=== PATIENT | female | born 1950 | race Caucasian/White ===

== ENCOUNTER 2019-06-26 11:00 | Outpatient (RCR) | payer SELFPAY | END 2019-07-26 00:01 | LOC: CR 11:00 | PROVIDERS: Family Provider Internal Medicine; Visit Provider Internal Medicine Cardiovascular Disease | DX: Z98.61 Coronary angioplasty status (principal) ==

== ENCOUNTER 2019-08-03 11:03 | Outpatient (RCR) | payer SELFPAY | END 2019-08-26 23:59 | disposition home or self-care (01) | LOC: CR 11:03 | PROVIDERS: Family Provider Internal Medicine; PCP Internal Medicine; Referring Provider Internal Medicine Cardiovascular Disease; Visit Provider Internal Medicine Cardiovascular Disease | DX: I25.10 Atherosclerotic heart disease of native coronary artery without angina pectoris (principal); Z95.5 Presence of coronary angioplasty implant and graft ==

== ENCOUNTER → 2019-08-16 09:20 | Outpatient (BNVA) | payer MEDICARE, SELFPAY | PROVIDERS: Family Provider Internal Medicine; PCP Internal Medicine; Visit Provider Psychiatry & Neurology Neurology | DX: G56.01 Carpal tunnel syndrome, right upper limb (principal); M67.441 Ganglion, right hand | CPT/HCPCS: 95885; 95909 ==

== ENCOUNTER 2019-08-29 12:55 | Outpatient (RCR) | payer SELFPAY | END 2019-09-24 23:59 | disposition home or self-care (01) | LOC: CR 12:55 | PROVIDERS: Family Provider Internal Medicine; PCP Internal Medicine; Referring Provider Internal Medicine Cardiovascular Disease; Visit Provider Internal Medicine Cardiovascular Disease | DX: I25.10 Atherosclerotic heart disease of native coronary artery without angina pectoris (principal); Z95.5 Presence of coronary angioplasty implant and graft ==

== ENCOUNTER 2019-09-02 08:11 | Outpatient (REF) | payer SELFPAY ==
[2019-09-02 11:09] LABS: Estmated Average Glucose 128; Hemoglobin A1C 6.1 % (4.0-6.0)
[2019-09-02 13:43] LABS: Chol HDL Ratio 2.44 mg/dL (0.0-4.40); Cholesterol 154 mg/dL (0-200); Glucose 93 mg/dL (65-115); HDL Cholesterol 63 mg/dL (60-100); LDL Cholesterol Calculated 74 mg/dL (50-129); LDL HDL Ratio 1.17 RATIO (0.00-3.22); Triglycerides 84 mg/dL (0-150)
== END 2019-09-02 08:12 | disposition home or self-care (01) ==
LOC: LAB 08:11
PROVIDERS: Family Provider Internal Medicine; PCP Internal Medicine; Visit Provider Dermatology
DX: Z01.89 Encounter for other specified special examinations (principal)
CPT/HCPCS: 80061; 82947; 83036

== ENCOUNTER 2019-09-26 11:55 | Outpatient (RCR) | payer SELFPAY | END 2019-10-25 23:59 | disposition home or self-care (01) | LOC: CR 11:55 | PROVIDERS: Family Provider Internal Medicine; PCP Internal Medicine; Referring Provider Internal Medicine Cardiovascular Disease; Visit Provider Internal Medicine Cardiovascular Disease | DX: Z95.5 Presence of coronary angioplasty implant and graft (principal) ==

== ENCOUNTER 2019-12-26 13:47 | Outpatient (RCR) | payer SELFPAY | END 2020-01-24 23:59 | disposition home or self-care (01) | LOC: CR 13:47 | PROVIDERS: Family Provider Internal Medicine; PCP Internal Medicine; Referring Provider Internal Medicine Cardiovascular Disease; Visit Provider Internal Medicine Cardiovascular Disease | DX: Z95.5 Presence of coronary angioplasty implant and graft (principal) ==

== ENCOUNTER 2020-01-25 | Outpatient (RCR) | payer SELFPAY | END 2020-02-20 23:00 | disposition home or self-care (01) | LOC: CR | PROVIDERS: PCP Internal Medicine; Referring Provider Internal Medicine Cardiovascular Disease; Visit Provider Internal Medicine Cardiovascular Disease | DX: I25.10 Atherosclerotic heart disease of native coronary artery without angina pectoris (principal); Z95.5 Presence of coronary angioplasty implant and graft ==

== ENCOUNTER 2020-02-23 13:22 | Outpatient (CLI) | payer BC, SELFPAY ==
--- NOTE | 2020-02-23 13:28 | MM_ITS ---
WS: [id number] BILATERAL DIGITAL SCREENING MAMMOGRAPHY WITH CAD CLINICAL INFORMATION: SCREENING HISTORY: Screening mammogram. No current complaints. COMPARISON: TECHNIQUE: Bilateral CC and MLO views. FINDINGS: Scattered fibroglandular densities bilaterally. No suspicious focal mass, asymmetry, calcifications, or architectural distortion. No evidence of malignancy. MM/[place] [id number] IMPRESSION: BI-RADS: 1-Negative FOLLOW UP: 1 Year Follow-up Recommend return to annual screening mammography.
== END 2020-02-23 13:23 | disposition home or self-care (01) ==
LOC: RADSHAW 13:27
PROVIDERS: PCP Internal Medicine; Visit Provider Internal Medicine
DX: Z12.31 Encounter for screening mammogram for malignant neoplasm of breast (principal)
CPT/HCPCS: 77067

== ENCOUNTER 2020-02-28 11:32 | Outpatient (RCR) | payer SELFPAY | END 2020-03-26 23:59 | disposition home or self-care (01) | LOC: CR 11:32 | PROVIDERS: PCP Internal Medicine; Referring Provider Internal Medicine Cardiovascular Disease; Visit Provider Internal Medicine | DX: I25.10 Atherosclerotic heart disease of native coronary artery without angina pectoris (principal); Z95.5 Presence of coronary angioplasty implant and graft ==

== ENCOUNTER → 2020-04-12 08:34 | Outpatient (BNVA) | payer MEDICARE, SELFPAY | PROVIDERS: PCP Internal Medicine; Visit Provider Internal Medicine Cardiovascular Disease | DX: E78.2 Mixed hyperlipidemia (principal) | CPT/HCPCS: 80061 ==

== ENCOUNTER 2020-04-27 09:39 | Outpatient (RCR) | payer SELFPAY | END 2020-05-26 23:59 | disposition home or self-care (01) | LOC: CR 09:39 | PROVIDERS: PCP Internal Medicine; Referring Provider Internal Medicine Cardiovascular Disease; Visit Provider Internal Medicine | DX: Z95.5 Presence of coronary angioplasty implant and graft (principal) ==

== ENCOUNTER 2020-05-28 10:36 | Outpatient (RCR) | payer SELFPAY | END 2020-06-25 23:59 | disposition home or self-care (01) | LOC: CR 10:36 | PROVIDERS: PCP Internal Medicine; Referring Provider Internal Medicine Cardiovascular Disease; Visit Provider Internal Medicine | DX: Z95.5 Presence of coronary angioplasty implant and graft (principal) ==

== ENCOUNTER 2020-06-26 11:08 | Outpatient (RCR) | payer SELFPAY | END 2020-07-26 23:59 | disposition home or self-care (01) | LOC: CR 11:08 | PROVIDERS: PCP Internal Medicine; Referring Provider Internal Medicine Cardiovascular Disease; Visit Provider Internal Medicine | DX: Z95.5 Presence of coronary angioplasty implant and graft (principal) ==

== ENCOUNTER 2020-07-27 14:11 | Outpatient (RCR) | payer MEDICARE, SELFPAY | END 2020-08-26 23:59 | disposition home or self-care (01) | LOC: CR 14:11 | PROVIDERS: PCP Internal Medicine; Referring Provider Internal Medicine Cardiovascular Disease; Visit Provider Internal Medicine | DX: Z95.5 Presence of coronary angioplasty implant and graft (principal) ==

== ENCOUNTER 2020-08-28 11:36 | Outpatient (RCR) | payer SELFPAY | END 2020-09-23 23:59 | disposition home or self-care (01) | LOC: CR 11:36 | PROVIDERS: PCP Internal Medicine; Referring Provider Internal Medicine Cardiovascular Disease; Visit Provider Internal Medicine | DX: Z95.5 Presence of coronary angioplasty implant and graft (principal) ==

== ENCOUNTER 2020-09-24 12:59 | Outpatient (RCR) | payer SELFPAY | END 2020-10-24 23:59 | disposition home or self-care (01) | LOC: CR 12:59 | PROVIDERS: PCP Internal Medicine; Referring Provider Internal Medicine Cardiovascular Disease; Visit Provider Internal Medicine | DX: Z95.5 Presence of coronary angioplasty implant and graft (principal) ==

== ENCOUNTER 2020-10-25 10:14 | Outpatient (RCR) | payer SELFPAY | END 2020-11-23 23:59 | disposition home or self-care (01) | LOC: CR 10:14 | PROVIDERS: PCP Internal Medicine; Referring Provider Internal Medicine Cardiovascular Disease; Visit Provider Internal Medicine | DX: Z95.5 Presence of coronary angioplasty implant and graft (principal) ==

== ENCOUNTER 2020-11-22 15:17 | Emergency (ER) | payer MEDICARE, SELFPAY ==
[2020-11-22 15:30] VITALS: BP 152/89; PULSE 69; RESP 18; TEMP 36.8; O2SAT 97; BMI 33.0
--- NOTE | 2020-11-22 15:56 | CTR_ITS ---
PROCEDURE INFORMATION: Exam: CT Cervical Spine Without Contrast Exam date and time: 11/22/2020 4:27 PM Age: 70 years old Clinical indication: Pain and injury or trauma; Blunt trauma; Injury date: 11/22/20; Injury details: Fall off ladder, no loc; Patient HX: Headache, neck pain, on plavix; Additional info: Fall neck pain TECHNIQUE: Imaging protocol: Computed tomography images of the cervical spine without contrast. Total images: 306 Radiation optimization: All CT scans at this facility use at least one of these dose optimization techniques: automated exposure control; mA and/or kV adjustment per patient size (includes targeted exams where dose is matched to clinical indication); or iterative reconstruction. COMPARISON: No relevant prior studies available. RADIATION DOSE METRICS: Total DLP (mGy-cm): 622.77 FINDINGS: Bones/joints: No acute fracture. Mild straightening of the normal cervical lordosis which may be positional in nature. Degenerative disease with moderate spondylosis deformans C4, C5, and C6. Minimal facet arthrosis. Discs/Spinal canal/Neural foramina: Advanced degenerative disc disease with disc space height loss C5/C6. No significant disc protrusion. No severe spinal canal stenosis. No significant neural foraminal narrowing. Lungs: Lung apices are normal. Soft tissues: Unremarkable. CT/CT cervical spin wo con* [id number] IMPRESSION: No acute findings. Radiation Dose CTDIVOL = (mGy): DLP = 622.77 (mGy-cm)
--- NOTE | 2020-11-22 15:56 | CTR_ITS ---
PROCEDURE INFORMATION: Exam: CT Head Without Contrast Exam date and time: 11/22/2020 4:27 PM Age: 70 years old Clinical indication: Pain and injury or trauma; Blunt trauma (contusions or hematomas); Without loss of consciousness; Post-traumatic; Injury date: 11/22/20; Injury details: Fall off ladder, no loc; Patient HX: Headache neck pain fall; Additional info: Fall, DIMAS, plavix TECHNIQUE: Imaging protocol: Computed tomography of the head without contrast. Total images: 193 Radiation optimization: All CT scans at this facility use at least one of these dose optimization techniques: automated exposure control; mA and/or kV adjustment per patient size (includes targeted exams where dose is matched to clinical indication); or iterative reconstruction. COMPARISON: No relevant prior studies available. RADIATION DOSE METRICS: Total DLP (mGy-cm): 817.96 FINDINGS: Brain: No evidence of active or acute intracranial pathologic process, hemorrhage, or trauma. No visible evidence of diffuse cerebral edema or generalized demyelination. No mass effect. No midline shift. Cerebral ventricles: No ventriculomegaly. Bones/joints: Unremarkable. No acute fracture. Paranasal sinuses: Visualized sinuses are unremarkable. No fluid levels. Mastoid air cells: Visualized mastoid air cells are well aerated. Soft tissues: Unremarkable. CT/CT head wo con* [id number] IMPRESSION: No evidence of active or acute intracranial pathologic process, hemorrhage, or trauma. Radiation Dose CTDIVOL = (mGy): DLP = 817.96 (mGy-cm)
--- NOTE | 2020-11-22 16:03 | W.ED.FALL ---
HPI - Fall General: Chief Complaint: Fall Stated Complaint: FALL, INJURY TO HEAD Time Seen by Provider: 11/22/20 16:03 History of Present Illness: HPI Narrative: Patient is a 70-year-old female comes to the ED after having a fall. Patient says she was on a stepladder and fell backwards. Patient says she hit the back of her head on concrete when she fell. Denies any loss of consciousness. Patient says she just has a sore spot on the back of her head and his started developing a headache. Patient does say she has a history of migraines and it sort of feels like the start of a migraine. Patient took about 500 mg of Tylenol before coming to the ED which has helped her headache. She also is complaining of having some mild neck pain. Patient is currently on Plavix. Associated symptoms-after fall: Reports headache(s) and neck pain; Denies abdominal pain, chest pain or hematuria Review of Systems Const: Denies: fever(s), chills or fatigue Eyes: Denies: change in vision or eye discomfort ENMT: Denies: throat pain, odynophagia, nasal discharge or nasal congestion Card: Denies: chest pain, palpitations, edema, swelling of feet/ankles, dyspnea on exertion or orthopnea Resp: Denies: dyspnea, productive cough or non-productive cough GI: Denies: abdominal pain, nausea, vomiting, diarrhea, constipation or hematochezia : Denies: flank pain, dysuria or hematuria Musc: Reports: neck pain; Denies: back pain, extremity pain or extremity swelling Skin/Breast: Reports: new lesions (Superficial abrasion on right elbow.); Denies: rash Neuro: Reports: headache(s); Denies: numbness in extremities or weakness in extremities [facility] ED PFSH: Medical History ASHD (arteriosclerotic heart disease) Fibromyalgia History of high blood pressure Hyperlipidemia Migraines Sleep apnea Ventricular arrhythmia Surgical History H/O shoulder surgery H/O tubal ligation H/O: knee surgery Presence of stent in LAD coronary artery Family History Other CAD (coronary artery disease) Hyperlipidemia Hypertension Psychiatric illness Social History Smoking and tobacco status: former smoker Alcohol intake: never Physical Exam Const: COMMON NORMALS: no acute distress, patient oriented x3, healthy appearing and alert GENERAL APPEARANCE: cooperative and comfortable HENMT: COMMON NORMALS: normocephalic HEAD & SCALP: normocephalic, contusion right occipital Head contusion size: 1 cm and scalp tenderness (Right occipital region over contusion); no Snow's sign and no raccoon eyes MOUTH: Normal oral and palatal mucosa present THROAT: posterior oropharynx normal and uvula midline Eye: COMMON NORMALS: Equal, round and reactive pupils present, EOMs intact bilaterally and conjunctivae normal CONJUNCTIVA: Yes conjunctivae normal PUPIL: Yes Equal, round and reactive pupils present Neck/C-Spine: COMMON NORMALS: supple GENERAL: Yes normal visual inspection Resp: COMMON NORMALS: normal respiratory effort, No retractions, No use of accessory muscles and clear to auscultation bilaterally AUSCULTATION: clear to auscultation bilaterally Cardio: COMMON NORMALS: regular rate, regular rhythm, S1 normal heart sound present, S2 normal heart sound present, No gallops present (Cardio), No clicks present (Cardio), No murmurs present (Cardio) and Peripheral pulses 2+ throughout RATE: regular rate RHYTHM: regular rhythm HEART SOUNDS: S1 normal heart sound present and S2 normal heart sound present PERIPHERAL PULSES: Peripheral pulses 2+ throughout GI: COMMON NORMALS: Normal to inspection, nondistended, normoactive bowel sounds present, Soft to palpation, non-tender and no masses PALPATION: Yes Soft to palpation : COMMON NORMALS: Yes no CVA tenderness BLADDER/KIDNEY EXAM: Yes no CVA tenderness Back/Pelvis: COMMON NORMALS: no CVA tenderness Extremity: COMMON NORMALS: normal to inspection Neuro: COMMON NORMALS: patient oriented x3, CN's II-XII intact bilaterally, moves all extremities, no focal motor deficits and no sensory deficits noted SENSORIUM/ORIENTATION: Yes alert SENSORY EXAM: Yes extremities (intact) MOTOR EXAM: 5/5 motor strength present throughout Skin: NARRATIVE SKIN EXAM: Superficial abrasion on right elbow. GENERAL SKIN EXAM: dry skin Course Vital Signs: Vital signs: Vital Signs Temperature 98.2 F 11/22/20 15:30 Pulse Rate 68 11/22/20 16:23 Respiratory Rate 16 11/22/20 16:23 Blood Pressure 151/78 11/22/20 16:23 Pulse Oximetry 96 11/22/20 16:23 MDM - Fall MDM Narrative: Medical decision making narrative: Patient is a 70-year-old female comes to the ED after having a fall. Patient fell and hit her head and is having some neck pain and a headache. Patient takes Plavix. Patient appears nontoxic and in no acute distress or pain. Her neuro exam was normal. She had a small contusion on the back of her head but no other significant exam findings. CT of head showed no acute findings. CT of cervical spine showed no acute fractures. Vital stable patient was discharged home and told to follow-up with PCP in 7 to 10 days for reevaluation. Return to ED precautions given. Patient stood agree with plan. Imaging Data^: CT Head: Attestation: I personally reviewed and interpreted this imaging study as follows: Radiologist's impression: [address] [address] [address] Scan Report Signed Patient: Christy Oquendo Unit #: [id number] : 1950 Age/Sex: 70 / F ADM Date: 11/22/20 Loc: ER Room/Bed: Attending Dr: Ordering Provider/Ordering MD: Zahra Wray DO Date of Service: 11/22/20 Procedure(s): CT head wo con* [id number] Accession Number(s): [id number] Report Number: [id number] PROCEDURE INFORMATION: Exam: CT Head Without Contrast Exam date and time: 11/22/2020 4:27 PM Age: 70 years old Clinical indication: Pain and injury or trauma; Blunt trauma (contusions or hematomas); Without loss of consciousness; Post-traumatic; Injury date: 11/22/20; Injury details: Fall off ladder, no loc; Patient HX: Headache neck pain fall; Additional info: Fall, DIMAS, plavix TECHNIQUE: Imaging protocol: Computed tomography of the head without contrast. Total images: 193 Radiation optimization: All CT scans at this facility use at least one of these dose optimization techniques: automated exposure control; mA and/or kV adjustment per patient size (includes targeted exams where dose is matched to clinical indication); or iterative reconstruction. COMPARISON: No relevant prior studies available. RADIATION DOSE METRICS: Total DLP (mGy-cm): 817.96 FINDINGS: Brain: No evidence of active or acute intracranial pathologic process, hemorrhage, or trauma. No visible evidence of diffuse cerebral edema or generalized demyelination. No mass effect. No midline shift. Cerebral ventricles: No ventriculomegaly. Bones/joints: Unremarkable. No acute fracture. Paranasal sinuses: Visualized sinuses are unremarkable. No fluid levels. Mastoid air cells: Visualized mastoid air cells are well aerated. Soft tissues: Unremarkable. CT/CT head wo con* [id number] IMPRESSION: No evidence of active or acute intracranial pathologic process, hemorrhage, or trauma. Radiation Dose CTDIVOL = (mGy): DLP = 817.96 (mGy-cm) Dictated By: Flaquito Obando Signed By: Flaquito Obando Signed Date/Time: 11/22/201650 DD/ [address]: Attestation: I personally reviewed and interpreted this imaging study as follows: Radiologist's impression: [address] [address] [address] Scan Report Signed Patient: Christy Oquendo Unit #: [id number] : 1950 Age/Sex: 70 / F ADM Date: 11/22/20 Loc: ER Room/Bed: Attending Dr: Ordering Provider/Ordering MD: Zahra Wrya DO Date of Service: 11/22/20 Procedure(s): CT cervical spin wo con* [id number] Accession Number(s): [id number] Report Number: [id number] PROCEDURE INFORMATION: Exam: CT Cervical Spine Without Contrast Exam date and time: 11/22/2020 4:27 PM Age: 70 years old Clinical indication: Pain and injury or trauma; Blunt trauma; Injury date: 11/22/20; Injury details: Fall off ladder, no loc; Patient HX: Headache, neck pain, on plavix; Additional info: Fall neck pain TECHNIQUE: Imaging protocol: Computed tomography images of the cervical spine without contrast. Total images: 306 Radiation optimization: All CT scans at this facility use at least one of these dose optimization techniques: automated exposure control; mA and/or kV adjustment per patient size (includes targeted exams where dose is matched to clinical indication); or iterative reconstruction. COMPARISON: No relevant prior studies available. RADIATION DOSE METRICS: Total DLP (mGy-cm): 622.77 FINDINGS: Bones/joints: No acute fracture. Mild straightening of the normal cervical lordosis which may be positional in nature. Degenerative disease with moderate spondylosis deformans C4, C5, and C6. Minimal facet arthrosis. Discs/Spinal canal/Neural foramina: Advanced degenerative disc disease with disc space height loss C5/C6. No significant disc protrusion. No severe spinal canal stenosis. No significant neural foraminal narrowing. Lungs: Lung apices are normal. Soft tissues: Unremarkable. CT/CT cervical spin wo con* [id number] IMPRESSION: No acute findings. Radiation Dose CTDIVOL = (mGy): DLP = 622.77 (mGy-cm) Dictated By: Flaquito Obando Signed By: Flaquito Obando Signed Date/Time: 11/22/201653 DD/ 52 Discharge Plan Discharge Patient Disposition: Home Clinical Impression: Fall as cause of accidental injury at home as place of occurrence Qualifiers: Encounter type: initial encounter Qualified Code(s): W19.XXXA - Unspecified fall, initial encounter Contusion Qualifiers: Encounter type: initial encounter Contusion area: head Contusion of head detail: scalp Qualified Code(s): S00.03XA - Contusion of scalp, initial encounter Headache Qualifiers: Headache type: unspecified Headache chronicity pattern: acute headache Intractability: not intractable Qualified Code(s): R51.9 - Headache, unspecified Condition: Stable Prescriptions: No Action pantoprazole 40 mg tablet,delayed release (DR/EC) 40 mg PO DAILY RF: 0 sumatriptan succinate 50 mg tablet 50 mg PO Q2H PRN (Reason: Migraine Headache) RF: 0 rosuvastatin 5 mg tablet 5 mg PO DAILY Qty: 90 RF: 3 clopidogrel 75 mg tablet 75 mg PO DAILY Qty: 90 RF: 3 metoprolol succinate 100 mg tablet extended release 24 hr 100 mg PO DAILY RF: 0 amlodipine 2.5 mg tablet 2.5 mg PO DAILY RF: 0 Discharge Orders: Discharge ED (Routine); Ordered 11/22/20 Ordered By: Vimal Grullon Referrals: Hong Arthur, [Primary Care Provider] - Discharge Diet: Regular Discharge Activity: Resume usual activity Patient Instructions: Fall Prevention for Older Adults (ED), Acute Headache (ED) Activity Restrictions/Additional Instructions: Follow-up with medical provider as directed in 7-10 days. continue taking all home medications as prescribed. Return to the ER or your medical provider if condition worsens. Please read and understand discharge instructions. If any questions, please ask. Coding Level of Care Code ED Roller Stitcher for Chg Fwd Exam Comprehensive
[2020-11-22 16:23] VITALS: BP 151/78; PULSE 68; RESP 16; O2SAT 96
== END 2020-11-22 17:10 | disposition home or self-care (01) ==
PROVIDERS: Emergency Provider Physician Assistant; PCP Internal Medicine
DX: S00.03XA Contusion of scalp, initial encounter (principal); R51.9 Headache, unspecified; Z79.02 Long term (current) use of antithrombotics/antiplatelets; E78.5 Hyperlipidemia, unspecified; Z87.891 Personal history of nicotine dependence; W11.XXXA Fall on and from ladder, initial encounter
CPT/HCPCS: 70450; 72125; 99283

== ENCOUNTER 2020-11-26 11:18 | Outpatient (RCR) | payer SELFPAY | END 2020-12-24 23:59 | disposition home or self-care (01) | LOC: CR 11:18 | PROVIDERS: PCP Internal Medicine; Referring Provider Internal Medicine Cardiovascular Disease; Visit Provider Internal Medicine | DX: Z95.5 Presence of coronary angioplasty implant and graft (principal) ==

== ENCOUNTER 2020-12-14 08:06 | Outpatient (CLI) | payer MEDICARE, SELFPAY ==
[2020-12-14 08:31] VITALS: BMI 33.2
--- NOTE | 2020-12-14 08:31 | ECG_ITS ---
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 Interpretive Statements NAME OF STUDY: LEXISCAN SESTAMIBI STRESS TEST INDICATION: Shortness of Breath, PROCEDURE: At the baseline, the EKG revealed sinus bradycardia with some nonspecific T wave changes. The baseline blood pressure was 136/83 mm Hg with a heart rate of 57 beats/min. Lexiscan was infused over a period of 20 seconds. A total of 0.4 milligrams of Lexiscan was infused. The stress phase was continued for a total of 5 minutes. Heart rate at the end of the stress phase was 85 with a blood pressure 135/77. The EKG at the peak infusion revealed no significant changes. Sestamibi was injected 20 seconds after the Lexiscan infusion. Blood pressure at the end of the recovery phase was 137/85 with a heart rate of 84 per minute. CONCLUSION: 1. No significant EKG changes with the LexiScan infusion 2. No LexiScan induced chest pain or cardiac arrhythmia 3. Normal blood pressure and heart rate response 4. Sestamibi/sestamibi perfusion scan pending; see separate report. Electronically Signed On 12-27-2020 20:11:14 CDT by Mike Jett M.D. [id number]
--- NOTE | 2020-12-14 08:31 | NMCV_ITS ---
NM timothy perf SPECT r/s* [id number] Christy Oquendo Age: 70 Gender: F : 1950 Exam Date: 12/14/2020 09:30 Ordering Phys: Jess Caballero Technologist: PRIMO Bach Exam Location: [facility] Indications: SHORTNESS OF BREATH STRESS TEST Please see separate stress test report in [facility] for full findings IMAGE PROTOCOL Rest/Stress 1 Lexiscan Day Radiopharmaceutical Dose (mCi) Administration Site Administered by Rest: Tc-99m 10.8 IV PRIMO Spann Sestamibi Stress:Tc-99m 32.8 IV PRIMO Spann Sestamibi Rest: 14-Dec-2020 60 Discovery 630 Stress: 14-Dec-2020 30 Discovery 630 0.4mg Lexiscan. Images obtained in supine and prone position. SPECT RESULTS Technical Quality: Excellent Raw Data Analysis: Normal Image Corrections: No attenuation or motion correction applied Summed Stress Score: 0 Summed Rest Score: 0 Summed Difference Score: 0 PERFUSION FINDINGS Fairly uniform myocardial tracer uptake with no significant perfusion abnormalities FUNCTIONAL RESULTS (calculated via Gated SPECT) Stress Image LV EF (%): 77 Stress EDV (mL):70 TID: 0.98 Stress ESV (mL):16 FUNCTIONAL FINDINGS: Segmental wall motion analysis revealing no gross wall motion normalities IMPRESSIONS 1. Unremarkable myocardial perfusion imaging 2. Normal LV ejection fraction of 77%. 3. LV wall motion analysis revealing no gross wall motion normalities. 4. Normal LV volume. No significant coronary ischemia, based on the above findings Dr Mike Jett MD [facility] (Electronically Signed) Final Date: 14 Dec 2020 15:37 S
[2020-12-14] MEDS: regadenoson 0.4 Mg/5 ml Syringe IVP (10:00)
[2020-12-14 10:17] VITALS: BP 144/88; PULSE 78
== END 2020-12-14 08:07 | disposition home or self-care (01) ==
LOC: RAD 08:11 → CDL 08:12
PROVIDERS: PCP Internal Medicine; Visit Provider Nurse Practitioner Family
DX: I25.10 Atherosclerotic heart disease of native coronary artery without angina pectoris (principal); R06.02 Shortness of breath
CPT/HCPCS: 78452; 93017; A9500; J2785

== ENCOUNTER 2020-12-25 10:30 | Outpatient (CLI) | payer MEDICARE, SELFPAY | END 2020-12-25 10:31 | disposition home or self-care (01) | LOC: LAB 10-10 17:22 | PROVIDERS: PCP Internal Medicine; Visit Provider Nurse Practitioner Family | DX: I25.10 Atherosclerotic heart disease of native coronary artery without angina pectoris (principal); E78.2 Mixed hyperlipidemia | CPT/HCPCS: 80061; 80076 ==

== ENCOUNTER 2020-12-27 14:46 | Outpatient (RCR) | payer SELFPAY | END 2021-01-23 23:59 | disposition home or self-care (01) | LOC: CR 14:46 | PROVIDERS: PCP Internal Medicine; Referring Provider Internal Medicine Cardiovascular Disease; Visit Provider Internal Medicine | DX: Z95.5 Presence of coronary angioplasty implant and graft (principal) ==

== ENCOUNTER 2021-01-24 14:31 | Outpatient (RCR) | payer SELFPAY | END 2021-02-23 23:59 | disposition home or self-care (01) | LOC: CR 14:31 | PROVIDERS: PCP Internal Medicine; Referring Provider Internal Medicine Cardiovascular Disease; Visit Provider Internal Medicine | DX: Z95.5 Presence of coronary angioplasty implant and graft (principal) ==

== ENCOUNTER 2021-02-11 11:28 | Outpatient (CLI) | payer MEDICARE, SELFPAY ==
--- NOTE | 2021-02-11 11:45 | USCV_ITS ---
Christy Oquendo Age: 70 Gender: F : 1950 Exam Date: 02/11/2021 11:49 Ordering Phys: Mike Jett MD ([email or web address]) Technologist: Exam Location: [facility] [place] Indication: MURMUR BP: 120 / 76 HR: 69 Rhythm: Sinus Technical Quality: Fair MEASUREMENTS (Male / Female) Normal Values 2D ECHO LVOT Diameter 2.0 cm LV Ejection Fraction MOD 2C 52.8 % LV Ejection Fraction 2C AL 53.9 % LA Diameter 3.8 cm LA Width 3.2 cm LA Height 5.5 cm RA Width 3.4 cm RA Height 4.0 cm Aorta at Sinotubular Diameter 3.2 cm DOPPLER AV Peak Velocity 119.0 cm/s LVOT Peak Velocity 92.0 cm/s AV Area Cont Eq vti 2.9 cm squared AV Area Cont Eq pk 2.6 cm squared MV Area PHT 5.0 cm squared Mitral E to A Ratio 1.3 MV E' Velocity 47.5 cm/s Mitral E to MV E' Ratio 10.7 Mitral E to LV E' Lateral Ratio 9.6 Mitral E to LV E' Septal Ratio 12.2 TR Peak Velocity 170.0 cm/s TR Peak Gradient 11.6 mmHg TV Peak E Velocity 78.0 cm/s Right Atrial Pressure 3.0 mmHg Pulmonary Artery Systolic Pressu 14.6 mmHg PV Peak Velocity 58.0 cm/s FINDINGS Left Ventricle Normal left ventricular size and systolic function, EF 55%.mild left ventricular hypertrophy. No regional wall motion abnormalities. Right Ventricle The right ventricle is normal in size and function. Right Atrium The right atrium is normal in size. Left Atrium Atrial septum appears to be bulging to the right side- aneurysm measuring 2.6 x 2.1 cm Mitral Valve Thickened mitral valve. Grade 1 mitral valve prolapse with trace of mitral regurgitation Aortic Valve Structurally normal aortic valve without significant sclerosis or stenosis. There is no aortic regurgitation. Tricuspid Valve Trace tricuspid valve regurgitation. Pulmonic Valve Pulmonic valve not well visualized. Pericardium Normal pericardium without effusion. Aorta Normal ascending aorta dimension. CONCLUSIONS Normal left ventricular size and systolic function, EF 55%. Mild left ventricular hypertrophy. No regional wall motion abnormalities. 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 The PA pressure, probably within normal limits. Because of the poor Doppler signals, the PA pressure estimation could not be done properly. Grade 1 mitral valve prolapse with trace of mitral regurgitation. There is no pericardial effusion. There are no intracardiac masses. Comparison with the previous study is difficult because of the difference in the technical quality. Dr Mike Jett MD [facility] (Electronically Signed) Final Date: 12 February 2021 09:43 S
== END 2021-02-11 11:29 | disposition home or self-care (01) ==
LOC: US 11:31
PROVIDERS: PCP Internal Medicine; Visit Provider Internal Medicine Cardiovascular Disease
DX: R01.1 Cardiac murmur, unspecified (principal); I25.3 Aneurysm of heart; I34.0 Nonrheumatic mitral (valve) insufficiency; I34.1 Nonrheumatic mitral (valve) prolapse
CPT/HCPCS: 93306

== ENCOUNTER 2021-02-25 15:14 | Outpatient (RCR) | payer SELFPAY | END 2021-03-26 23:59 | disposition home or self-care (01) | LOC: CR 15:14 | PROVIDERS: PCP Internal Medicine; Referring Provider Internal Medicine Cardiovascular Disease; Visit Provider Internal Medicine | DX: Z95.5 Presence of coronary angioplasty implant and graft (principal) ==

== ENCOUNTER 2021-03-28 12:57 | Outpatient (RCR) | payer SELFPAY | END 2021-04-25 23:59 | disposition home or self-care (01) | LOC: CR 12:57 | PROVIDERS: PCP Internal Medicine; Referring Provider Internal Medicine Cardiovascular Disease; Visit Provider Internal Medicine | DX: Z95.5 Presence of coronary angioplasty implant and graft (principal) ==

== ENCOUNTER 2021-04-09 08:50 | Outpatient (CLI) | payer MEDICARE, SELFPAY ==
--- NOTE | 2021-04-09 08:55 | MM_ITS ---
WS: [id number] BILATERAL DIGITAL SCREENING MAMMOGRAPHY WITH CAD CLINICAL INFORMATION: SCREENING HISTORY: Screening mammogram. No current complaints. COMPARISON: February 23, 2020 TECHNIQUE: Bilateral CC and MLO views. FINDINGS: Scattered fibroglandular densities bilaterally. No suspicious focal mass, asymmetry, calcifications, or architectural distortion. No evidence of malignancy. MM/[place] [id number] IMPRESSION: BI-RADS: 1-Negative FOLLOW UP: 1 Year Follow-up Recommend return to annual screening mammography.
--- NOTE | 2021-04-09 10:57 | XR_ITS ---
WS: [id number] SCREENING DEXA SCAN [employer] CLINICAL INFORMATION: POSTMENOPAUSAL COMPARISON: None. FINDINGS: The L1-L4 bone mineral density measures 0.971. This corresponds to a T score score of -1.9 and Z scor e of -0.7. Left femoral neck bone mineral density measures 0.840 g/cm2. This corresponds to a T score of -1.3 an d Z score of -0.2. Right femoral neck bone mineral density measures 0.813 g/cm2. This corresponds to a T score -1. 6 5of and Z score of -0.4. Mean femoral neck bone mineral density measures 0.827 g/cm2. This corresponds to a T score of -1.4 an d Z score of -0.3. XR/XR DEXA axial skeleton* [id number] IMPRESSION: Osteopenia Patient's FRAX calculated 10 year probability for major osteoporotic fracture i s 11.6 % and osteoporotic hip fracture is 2.2%.
== END 2021-04-09 08:51 | disposition home or self-care (01) ==
LOC: RADSHAW 08:52
PROVIDERS: PCP Internal Medicine; Visit Provider Physician Assistant
DX: Z12.31 Encounter for screening mammogram for malignant neoplasm of breast (principal); Z78.0 Asymptomatic menopausal state; M85.80 Other specified disorders of bone density and structure, unspecified site
CPT/HCPCS: 77067; 77080

== ENCOUNTER 2021-04-26 09:06 | Outpatient (RCR) | payer SELFPAY | END 2021-05-26 23:59 | disposition home or self-care (01) | LOC: CR 09:06 | PROVIDERS: PCP Internal Medicine; Referring Provider Internal Medicine Cardiovascular Disease; Visit Provider Internal Medicine | DX: Z95.5 Presence of coronary angioplasty implant and graft (principal) ==

== ENCOUNTER 2021-05-27 13:06 | Outpatient (RCR) | payer SELFPAY | END 2021-06-25 23:59 | disposition home or self-care (01) | LOC: CR 13:06 | PROVIDERS: PCP Internal Medicine; Referring Provider Internal Medicine Cardiovascular Disease; Visit Provider Internal Medicine | DX: Z95.5 Presence of coronary angioplasty implant and graft (principal) ==

== ENCOUNTER 2021-06-26 10:05 | Outpatient (RCR) | payer SELFPAY | END 2021-07-26 23:59 | disposition home or self-care (01) | LOC: CR 10:05 | PROVIDERS: PCP Internal Medicine; Referring Provider Internal Medicine Cardiovascular Disease; Visit Provider Internal Medicine | DX: Z95.5 Presence of coronary angioplasty implant and graft (principal) ==

== ENCOUNTER → 2021-06-27 09:11 | Outpatient (BNVA) | payer MEDICARE, SELFPAY | PROVIDERS: PCP Internal Medicine; Visit Provider Internal Medicine Cardiovascular Disease | DX: E78.2 Mixed hyperlipidemia (principal); I25.10 Atherosclerotic heart disease of native coronary artery without angina pectoris; I49.9 Cardiac arrhythmia, unspecified; Z86.79 Personal history of other diseases of the circulatory system | CPT/HCPCS: 80061; 80076 ==

== ENCOUNTER 2021-07-08 06:00 | Outpatient (RCR) | payer MEDICARE, SELFPAY | END 2021-07-26 23:59 | disposition home or self-care (01) | LOC: SPT 06:00 | PROVIDERS: PCP Internal Medicine; Referring Provider Internal Medicine; Visit Provider Internal Medicine | DX: H81.10 Benign paroxysmal vertigo, unspecified ear (principal) | CPT/HCPCS: 95992; 97162 ==

== ENCOUNTER 2021-07-29 08:48 | Outpatient (RCR) | payer SELFPAY | END 2021-08-26 23:59 | disposition home or self-care (01) | LOC: CR 08:48 | PROVIDERS: PCP Internal Medicine; Referring Provider Internal Medicine Cardiovascular Disease; Visit Provider Internal Medicine | DX: Z95.5 Presence of coronary angioplasty implant and graft (principal) ==

== ENCOUNTER 2021-08-22 06:00 | Outpatient (RCR) | payer MEDICARE, SELFPAY | END 2021-08-26 23:59 | disposition home or self-care (01) | LOC: SPT 06:00 | PROVIDERS: PCP Internal Medicine; Referring Provider Internal Medicine; Visit Provider Internal Medicine | DX: M54.2 Cervicalgia (principal); G89.29 Other chronic pain | CPT/HCPCS: 97162 ==

== ENCOUNTER 2021-08-27 06:00 | Outpatient (RCR) | payer MEDICARE, SELFPAY | END 2021-09-23 23:59 | disposition home or self-care (01) | LOC: SPT 06:00 | PROVIDERS: PCP Internal Medicine; Referring Provider Internal Medicine; Visit Provider Internal Medicine | DX: M54.2 Cervicalgia (principal); G89.29 Other chronic pain | CPT/HCPCS: 97110; 97150 ==

== ENCOUNTER 2021-09-02 15:13 | Outpatient (RCR) | payer SELFPAY | END 2021-09-23 23:59 | disposition home or self-care (01) | LOC: CR 15:13 | PROVIDERS: PCP Internal Medicine; Referring Provider Internal Medicine Cardiovascular Disease; Visit Provider Internal Medicine | DX: Z95.5 Presence of coronary angioplasty implant and graft (principal) ==

== ENCOUNTER 2021-09-24 11:45 | Outpatient (RCR) | payer SELFPAY | END 2021-10-24 23:59 | disposition home or self-care (01) | LOC: CR 11:45 | PROVIDERS: PCP Internal Medicine; Referring Provider Internal Medicine Cardiovascular Disease; Visit Provider Internal Medicine | DX: Z95.5 Presence of coronary angioplasty implant and graft (principal) ==

== ENCOUNTER 2021-10-25 12:46 | Outpatient (RCR) | payer SELFPAY | END 2021-11-23 23:59 | disposition home or self-care (01) | LOC: CR 12:46 | PROVIDERS: PCP Internal Medicine; Referring Provider Internal Medicine Cardiovascular Disease; Visit Provider Internal Medicine | DX: Z95.5 Presence of coronary angioplasty implant and graft (principal) ==

== ENCOUNTER 2021-11-25 12:17 | Outpatient (RCR) | payer SELFPAY | END 2021-12-24 23:59 | disposition home or self-care (01) | LOC: CR 12:17 | PROVIDERS: PCP Internal Medicine; Referring Provider Internal Medicine Cardiovascular Disease; Visit Provider Internal Medicine | DX: Z95.5 Presence of coronary angioplasty implant and graft (principal) ==

== ENCOUNTER → 2021-11-27 09:31 | Outpatient (BNVA) | payer OTHER, SELFPAY | PROVIDERS: PCP Internal Medicine; Referring Provider Nurse Practitioner Family; Visit Provider Podiatrist Foot & Ankle Surgery | DX: M79.671 Pain in right foot (principal); M19.071 Primary osteoarthritis, right ankle and foot | CPT/HCPCS: 73630 ==

== ENCOUNTER 2021-12-25 08:35 | Outpatient (CLI) | payer MEDICARE, SELFPAY ==
[2021-12-25 09:16] LABS: Chol HDL Ratio 2.01 mg/dL (0.0-4.40); Cholesterol 141 mg/dL (0-200); HDL Cholesterol 70 mg/dL (60-100); LDL Cholesterol Calculated 61 mg/dL (50-129); LDL HDL Ratio 0.87 RATIO (0.00-3.22); Triglycerides 48 mg/dL (0-150)
== END 2021-12-25 08:36 | disposition home or self-care (01) ==
PROVIDERS: PCP Internal Medicine; Visit Provider Internal Medicine Cardiovascular Disease
DX: E78.2 Mixed hyperlipidemia (principal)
CPT/HCPCS: 80061

== ENCOUNTER 2021-12-26 09:32 | Outpatient (RCR) | payer SELFPAY | END 2022-01-23 23:59 | disposition home or self-care (01) | LOC: CR 09:32 | PROVIDERS: PCP Internal Medicine; Referring Provider Internal Medicine Cardiovascular Disease; Visit Provider Internal Medicine | DX: Z95.5 Presence of coronary angioplasty implant and graft (principal) ==

== ENCOUNTER → 2021-12-31 09:42 | Outpatient (BNVA) | payer MEDICARE, SELFPAY | PROVIDERS: PCP Internal Medicine; Visit Provider Internal Medicine Cardiovascular Disease | DX: I25.10 Atherosclerotic heart disease of native coronary artery without angina pectoris (principal); I10 Essential (primary) hypertension; I49.9 Cardiac arrhythmia, unspecified; G47.33 Obstructive sleep apnea (adult) (pediatric); E78.2 Mixed hyperlipidemia; R55 Syncope and collapse; I49.1 Atrial premature depolarization; I48.91 Unspecified atrial fibrillation | CPT/HCPCS: 93229; 99214 ==

== ENCOUNTER 2022-01-08 09:20 | Outpatient (CLI) | payer MEDICARE, SELFPAY ==
[2022-01-08 10:36] LABS: Anion Gap 15.3 (5-19); Blood Urea Nitrogen 12 mg/dL (8-23); Calcium 9.8 mg/dL (8.5-10.5); Carbon Dioxide 24 mmol/L (22-29); Chloride 99 mmol/L (98-107); Glomerular Filtration Rate 98.8 mL/min (90-130); Glucose 93 mg/dL (65-115); Osmolality Calculated 277 mOsm/kg (285-295); Potassium 4.3 mmol/L (3.5-5.1); Sodium 134 mmol/L (136-145); Thyroid Stimulating Hormone 2.14 uIU/mL (0.27-4.20)
[2022-01-08 10:44] LABS: Basophils # 0.1 10^3/uL (0.0-0.1); Basophils % 1.1 %; Eosinophils % 0.6 %; Hematocrit 41.2 % (37.0-47.0); Hemoglobin 14.2 g/dL (11.5-15.3); Lymphocytes # 1.3 10^3/uL (0.8-4.8); Lymphocytes % 23.5 %; Mean Corpuscular HGB Conc 34.5 g/dL (30.0-36.0); Mean Corpuscular Hemoglobin 30.9 pg (28.0-34.0); Mean Corpuscular Volume 89.6 fl (81-99); Mean Platelet Volume 11.4 fL (7.4-10.4); Monocytes # 0.7 10^3/uL (0.2-0.9); Monocytes % 12.8 %; Neutrophils # 3.27 10^3/uL (1.8-7.7); Neutrophils % 61.6 %; Nucleated Red Blood Cells % 0 %; Platelet Count 219 10^3/cmm (130-400); Red Cell Distribution Width 12.1 % (12.1-15.1); White Blood Count 5.3 10^3/uL (4.0-10.0)
[2022-01-08 11:06] LABS: INR 0.97 (0.83-1.21); Prothrombin Time (Patient) 13.2 Seconds (12.0-15.1)
== END 2022-01-08 09:21 | disposition home or self-care (01) ==
PROVIDERS: PCP Internal Medicine; Visit Provider Internal Medicine Cardiovascular Disease
DX: I25.10 Atherosclerotic heart disease of native coronary artery without angina pectoris (principal); R01.1 Cardiac murmur, unspecified; R06.02 Shortness of breath; I49.9 Cardiac arrhythmia, unspecified
CPT/HCPCS: 36415; 80048; 84443; 85025; 85610

== ENCOUNTER 2022-01-12 11:01 | Emergency (ER) | payer MEDICARE, SELFPAY ==
--- NOTE | 2022-01-12 11:03 | XRR_ITS ---
PROCEDURE INFORMATION: Exam: XR Chest Exam date and time: 01/12/2022 11:43 AM Age: 71 years old Clinical indication: Angina; Additional info: Cp TECHNIQUE: Imaging protocol: Radiologic exam of the chest. Views: 1 view. COMPARISON: CR Chest 1 [place] [id number] 05/21/2018 9:52 PM FINDINGS: Lungs: Unremarkable. No consolidation. Pleural spaces: Unremarkable. No pleural effusion. No pneumothorax. Heart/Mediastinum: Unremarkable. No cardiomegaly. Bones/joints: Unremarkable. XR/XR chest 1V portable [id number] IMPRESSION: No acute findings.
--- NOTE | 2022-01-12 11:03 | ECG_ITS ---
Test Date: 2022-01-12 Pat Name: Christy Oquendo Department: Room: Gender: Female Resource Director: : 1950 Requested By: Eyad Cortez Order Number: [id number] Kem MD: Mariah Sibley M.D. Measurements Intervals [place] Rate: 79 P: 9 ID: [id number] QRS: -5 QRSD: 85 T: 0 QT: 352 QTc: 404 Interpretive Statements SINUS RHYTHM MODERATE VOLTAGE CRITERIA FOR LVH, CONSIDER NORMAL VARIANT Possible chest lead reversal Compared to ECG 05/21/2018 23:52:06 No significant change Electronically Signed On 01-12-2022 12:58:08 CDT by Mariah Sibley M.D. [id number]
[2022-01-12 11:10] VITALS: BP 150/85; PULSE 78; RESP 16; TEMP 36.6; O2SAT 98; BMI 31.8
--- NOTE | 2022-01-12 11:44 | W.ED.CHESTPA ---
HPI - Chest Pain General: Chief Complaint: Chest Pain Stated Complaint: chest pain Time Seen by Provider: 01/12/22 11:39 Source: patient Mode of arrival: ambulatory Limitations: no limitations History of Present Illness: 71-year-old female who states that she been having a slight headache and some chest pain over the last day. States she gets migraines this feels like her typical migraines. She states that she had been doing really diagnosed with A. fib and had 2 episodes today where she felt like her heart was racing and felt short of breath. She does have a Holter monitor on it appears she was likely in SVT she has since converted she is in normal sinus rhythm she states she feels much improved here. Denies any pain currently. Denies any dyspnea currently. Associated symptoms: Deny abdominal pain, dyspnea, fever(s), nausea or vomiting Review of Systems Const: Denies: fever(s), chills, body aches or change in appetite Eyes: Denies: blurry vision or eye discomfort ENMT: Denies: throat pain or dental pain Card: Reports: chest pain Resp: Denies: dyspnea GI: Denies: abdominal pain, nausea, vomiting or diarrhea : Denies: dysuria Musc: Denies: neck pain or back pain Skin/Breast: Denies: rash Neuro: Denies: headache(s) Psych: Denies: depression Javier/Lymph: Denies: easy bruising All/Imm: Denies: urticaria PFSH ED PFSH: Medical History ASHD (arteriosclerotic heart disease) Fibromyalgia History of high blood pressure Hyperlipidemia Migraines Onychodystrophy Sleep apnea Ventricular arrhythmia Surgical History H/O shoulder surgery H/O tubal ligation H/O: knee surgery Presence of stent in LAD coronary artery Family History Mother CAD (coronary artery disease) Diabetes Stroke Brother CAD (coronary artery disease) Dementia Father Stroke Other Hyperlipidemia Hypertension Psychiatric illness Denies family history of Clotting disorder Chronic kidney disease (CKD) Suicide Anesthesia complication Bleeding disorder Lung disease Cancer Social History Smoking and tobacco status: former smoker Alcohol intake: never Physical Exam Const: COMMON NORMALS: no acute distress, patient oriented x3 and healthy appearing HENMT: COMMON NORMALS: normocephalic and atraumatic HEAD & SCALP: normocephalic and atraumatic Eye: COMMON NORMALS: Equal, round and reactive pupils present and EOMs intact bilaterally PUPIL: Yes Equal, round and reactive pupils present Neck/C-Spine: COMMON NORMALS: full ROM and supple Chest: COMMONS NORMALS: normal inspection of the chest and normal palpation of entire chest wall Resp: COMMON NORMALS: normal respiratory effort, No retractions, No use of accessory muscles and clear to auscultation bilaterally AUSCULTATION: clear to auscultation bilaterally Cardio: COMMON NORMALS: regular rate, regular rhythm and No murmurs present (Cardio) RATE: regular rate RHYTHM: regular rhythm GI: COMMON NORMALS: Normal to inspection, nondistended, normoactive bowel sounds present, Soft to palpation, non-tender and no masses PALPATION: Yes Soft to palpation Extremity: COMMON NORMALS: normal to inspection and full ROM Neuro: COMMON NORMALS: patient oriented x3, moves all extremities and no focal motor deficits Psych: COMMON NORMALS: mental status grossly normal, Normal thought process present and cooperative THOUGHT PROCESS: Normal thought process present Skin: COMMON NORMALS: no rashes or lesions noted and no wounds GENERAL SKIN EXAM: no rashes or lesions noted Course Vital Signs: Vital signs: Vital Signs Temperature 97.9 F 01/12/22 11:10 Pulse Rate 69 01/12/22 12:46 Respiratory Rate 14 01/12/22 12:46 Blood Pressure 155/100 01/12/22 12:46 Pulse Oximetry 92 01/12/22 12:46 MDM - Chest Pain Medical Decision Making Patient presents for chest pain that is atypical in nature her initial and repeat troponins here are negative. Patient did have a period of what appeared to be SVT earlier today but she had since converted she has been well-appearing here with no arrhythmias. She has had mild headaches but she does have a history of migraines they are not severe in nature she has no signs of subarachnoid hemorrhage she is to follow-up with her lead web application developer in 2 to 4 days return if worsening she understands agrees to plan. Lab Data : 01/12/22 11:52 01/12/22 11:52 Radiology Impressions Chest X-Ray 01/12/22 11:03 IMPRESSION: No acute findings. Laboratory Results WBC 6.4 10^3/uL (4.0-10.0) 01/12/22 11:52 RBC 4.50 10^6/uL (4.1-5.3) 01/12/22 11:52 Hgb 14.2 g/dL (11.5-15.3) 01/12/22 11:52 Hct 40.4 % (37.0-47.0) 01/12/22 11:52 MCV 89.8 fl (81-99) 01/12/22 11:52 MCH 31.6 pg (28.0-34.0) 01/12/22 11:52 MCHC 35.1 g/dL (30.0-36.0) 01/12/22 11:52 RDW 12.2 % (12.1-15.1) 01/12/22 11:52 Plt Count 220 10^3/cmm (130-400) 01/12/22 11:52 MPV 10.9 fL (7.4-10.4) H 01/12/22 11:52 Neut % (Auto) 54.1 % 01/12/22 11:52 Lymph % (Auto) 32.0 % 01/12/22 11:52 [place]hin % (Auto) 12.1 % 01/12/22 11:52 Eos % (Auto) 0.8 % 01/12/22 11:52 Baso % (Auto) 0.8 % 01/12/22 11:52 Neut # (Auto) 3.44 10^3/uL (1.8-7.7) 01/12/22 11:52 Lymph # (Auto) 2.0 10^3/uL (0.8-4.8) 01/12/22 11:52 [place]hin # (Auto) 0.8 10^3/uL (0.2-0.9) 01/12/22 11:52 Eos # (Auto) 0.1 10^3/uL (0.0-0.8) 01/12/22 11:52 Baso # (Auto) 0.1 10^3/uL (0.0-0.1) 01/12/22 11:52 Nucleated RBC % (auto) 0 % 01/12/22 11:52 Nucleated RBCs # 0.0 /100WBC 01/12/22 11:52 Sodium 136 mmol/L (136-145) 01/12/22 11:52 Potassium 3.9 mmol/L (3.5-5.1) 01/12/22 11:52 Chloride 102 mmol/L (98-107) 01/12/22 11:52 Carbon Dioxide 23 mmol/L (22-29) 01/12/22 11:52 Anion Gap 14.9 (5-19) 01/12/22 11:52 BUN 12 mg/dL (8-23) 01/12/22 11:52 Creatinine 0.6 mg/dL (0.5-0.9) 01/12/22 11:52 GFR Calculation 98.8 mL/min (90-130) 01/12/22 11:52 Glucose 88 mg/dL (65-115) 01/12/22 11:52 Calculated Osmolality 281 mOsm/kg (285-295) L 01/12/22 11:52 Calcium 9.7 mg/dL (8.5-10.5) 01/12/22 11:52 Total Bilirubin 0.4 mg/dL (0.15-1.2) 01/12/22 11:52 AST 15 U/L (0-32) 01/12/22 11:52 ALT 12 U/L (0-33) 01/12/22 11:52 Alkaline Phosphatase 91 IU/L (35-105) 01/12/22 11:52 Troponin T Baseline 6 ng/L (0-10) 01/12/22 11:52 Troponin T 120 Minute 6.00 ng/L (0-10) 01/12/22 14:20 Total Protein 8.1 g/dL (6.6-8.7) 01/12/22 11:52 Albumin 4.8 g/dL (3.5-5.2) 01/12/22 11:52 Globulin 3.3 g/dL (1.3-4.6) 01/12/22 11:52 EKG Data EKG 1: I personally reviewed and interpreted this EKG as follows: EKG interpretation date: 01/12/22 EKG interpretation time: 11:17 Interpretation: nsr hr [address] or t wave abnormalities qrs 85 qtc 386 EKG 2: I personally reviewed and interpreted this EKG as follows: EKG interpretation date: 01/12/22 EKG interpretation time: 12:55 Interpretation: NSR HR [address] or t wave abnormalities qrs 83 qtc 383 Discharge Plan Discharge Patient Disposition: Home Clinical Impression: Chest pain Condition: Stable Prescriptions: No Action magnesium oxide 400 mg magnesium tablet 400 mg PO DAILY 0RF nitroglycerin 0.4 mg tablet, sublingual 0.4 mg sublingual Q5M PRN (Reason: chest pain) 30 Days Qty: 30 3RF Rx Instructions: until response; do not exceed 3 doses per episode pantoprazole 40 mg tablet,delayed release (DR/EC) 40 mg PO DAILY 0RF sumatriptan succinate 50 mg tablet 25 mg PO Q2H PRN (Reason: Migraine Headache) 0RF Rx Instructions: takes 25 mg as needed cholecalciferol (vitamin D3) 50 mcg (2,000 unit) capsule 50 mcg PO DAILY 0RF amlodipine 2.5 mg tablet See Rx Instructions .ROUTE .COMPLEX Qty: 90 3RF Dose Instruction: TAKE 1 TABLET BY MOUTH EVERY DAY Rx Instructions: TAKE 1 TABLET BY MOUTH EVERY DAY clopidogrel 75 mg tablet 75 mg PO DAILY Qty: 90 3RF rosuvastatin 5 mg tablet 5 mg PO DAILY Qty: 90 3RF metoprolol succinate 100 mg tablet extended release 24 hr 100 mg PO DAILY Qty: 90 1RF Eliquis 5 mg tablet 5 mg PO BID Qty: 60 5RF Discharge Orders: Discharge ED (Routine); Ordered 01/12/22 Ordered By: Eyad Cortez Referrals: Mike Jett MD [Physician] - 1-3 days Hong Arthur DO [Primary Care Provider] - Discharge Diet: Advance as tolerated Discharge Activity: Resume usual activity Patient Instructions: Chest Pain (ED) Coding Level of Care Code ED Dental Detail Representative for Chg Fwd Exam Comprehensive
[2022-01-12] MEDS: ondansetron 2 mg/ML SDV 2 mL 4 MG IVP (11:57)
[2022-01-12] MEDS: acetaminophen 500 mg Tablet 1000 MG PO (11:57)
[2022-01-12 12:05] LABS: Basophils # 0.1 10^3/uL (0.0-0.1); Basophils % 0.8 %; Eosinophils # 0.1 10^3/uL (0.0-0.8); Eosinophils % 0.8 %; Hematocrit 40.4 % (37.0-47.0); Hemoglobin 14.2 g/dL (11.5-15.3); Mean Corpuscular HGB Conc 35.1 g/dL (30.0-36.0); Mean Corpuscular Hemoglobin 31.6 pg (28.0-34.0); Mean Corpuscular Volume 89.8 fl (81-99); Mean Platelet Volume 10.9 fL (7.4-10.4); Monocytes # 0.8 10^3/uL (0.2-0.9); Monocytes % 12.1 %; Neutrophils # 3.44 10^3/uL (1.8-7.7); Neutrophils % 54.1 %; Nucleated Red Blood Cells % 0 %; Platelet Count 220 10^3/cmm (130-400); Red Cell Distribution Width 12.2 % (12.1-15.1); White Blood Count 6.4 10^3/uL (4.0-10.0)
[2022-01-12 12:28] LABS: Alanine Aminotransferase 12 U/L (0-33); Albumin Level 4.8 g/dL (3.5-5.2); Alkaline Phosphatase 91 IU/L (35-105); Anion Gap 14.9 (5-19); Aspartate Amino Transferase 15 U/L (0-32); Blood Urea Nitrogen 12 mg/dL (8-23); Calcium 9.7 mg/dL (8.5-10.5); Carbon Dioxide 23 mmol/L (22-29); Chloride 102 mmol/L (98-107); Globulin 3.3 g/dL (1.3-4.6); Glomerular Filtration Rate 98.8 mL/min (90-130); Glucose 88 mg/dL (65-115); Osmolality Calculated 281 mOsm/kg (285-295); Potassium 3.9 mmol/L (3.5-5.1); Sodium 136 mmol/L (136-145); Total Bilirubin 0.4 mg/dL (0.15-1.2); Total Protein 8.1 g/dL (6.6-8.7)
[2022-01-12 12:30] LABS: Troponin(5th) Baseline 6 ng/L (0-10)
[2022-01-12 12:46] VITALS: BP 155/100; PULSE 69; RESP 14; O2SAT 92
--- NOTE | 2022-01-12 13:01 | PC.NURSE ---
EKG done at 1257 and shown to ER doctor
--- NOTE | 2022-01-12 13:03 | ECG_ITS ---
[facility] Test Date: 2022-01-12 Pat Name: Christy Oquendo Department: Room: Gender: Female Pmp: : 1950 Requested By: Eyad Cortez Order Number: [id number] Reading MD: Mariah Sibley M.D. Measurements Intervals [place] Rate: 71 P: 36 TN: 164 QRS: 3 QRSD: 83 T: 2 QT: 360 QTc: 393 Interpretive Statements SINUS RHYTHM WITH OCCASIONAL SUPRAVENTRICULAR PREMATURE COMPLEXES Compared to ECG 01/12/2022 11:17:32 Myocardial infarct finding no longer present Electronically Signed On 01-12-2022 13:05:32 CDT by Mariah Sibley M.D. [id number]
[2022-01-12 15:38] LABS: Troponin 5 2HR Delta 0 ABS# (0-10)
--- NOTE | 2022-01-13 04:52 | DCPLANNER ---
Addendum entered by Roberta So 02/16/22 15:43: Patient had a follow up appointment scheduled for 01.16.22 with ESCROW SECRETARY, Jess Caballero at [facility] - patient did attend appointment. Original Note: enrollment management manager had message to schedule a follow up appointment for patient with cardiology. enrollment management manager sent patients information to the front office staff at [facility]. Patients information will be printed and reviewed. Clinic will call patient with appointment information.
== END 2022-01-12 15:21 | disposition home or self-care (01) ==
PROVIDERS: Emergency Provider Emergency Medicine; PCP Internal Medicine
DX: R07.9 Chest pain, unspecified (principal); I25.10 Atherosclerotic heart disease of native coronary artery without angina pectoris; E78.5 Hyperlipidemia, unspecified
CPT/HCPCS: 71045; 80053; 84484; 85025; 93005; 96374; 99285; J2405

== ENCOUNTER → 2022-01-16 08:29 | Outpatient (BNVA) | payer MEDICARE, SELFPAY | PROVIDERS: PCP Internal Medicine; Visit Provider Nurse Practitioner Family | DX: L60.0 Ingrowing nail (principal); L60.3 Nail dystrophy; M79.672 Pain in left foot; I47.1 Supraventricular tachycardia; Z79.01 Long term (current) use of anticoagulants | CPT/HCPCS: 11750; 99213 ==

== ENCOUNTER 2022-01-24 10:38 | Outpatient (RCR) | payer SELFPAY | END 2022-02-23 23:59 | disposition home or self-care (01) | LOC: CR 10:38 | PROVIDERS: PCP Internal Medicine; Referring Provider Internal Medicine Cardiovascular Disease; Visit Provider Internal Medicine | DX: Z95.5 Presence of coronary angioplasty implant and graft (principal) ==

== ENCOUNTER → 2022-02-17 11:04 | Outpatient (BNVA) | payer MEDICARE, SELFPAY | PROVIDERS: PCP Internal Medicine; Visit Provider Internal Medicine Cardiovascular Disease | DX: I48.91 Unspecified atrial fibrillation (principal); I25.10 Atherosclerotic heart disease of native coronary artery without angina pectoris; I10 Essential (primary) hypertension; G47.33 Obstructive sleep apnea (adult) (pediatric); E78.2 Mixed hyperlipidemia; Z87.891 Personal history of nicotine dependence | CPT/HCPCS: 99214 ==

== ENCOUNTER 2022-02-20 20:00 | Outpatient (CLI) | payer MEDICARE, SELFPAY | END 2022-02-20 20:01 | disposition home or self-care (01) | LOC: SLEEP 02-21 07:28 | PROVIDERS: PCP Internal Medicine; Visit Provider Internal Medicine | DX: G47.33 Obstructive sleep apnea (adult) (pediatric) (principal) | CPT/HCPCS: 95811 ==

== ENCOUNTER 2022-02-24 13:17 | Outpatient (RCR) | payer SELFPAY | END 2022-03-26 23:59 | disposition home or self-care (01) | LOC: CR 13:17 | PROVIDERS: PCP Internal Medicine; Referring Provider Internal Medicine Cardiovascular Disease; Visit Provider Internal Medicine | DX: Z95.5 Presence of coronary angioplasty implant and graft (principal) ==

== ENCOUNTER → 2022-03-06 10:23 | Outpatient (BNVA) | payer MEDICARE, SELFPAY | PROVIDERS: PCP Internal Medicine; Visit Provider Podiatrist Foot & Ankle Surgery | DX: L60.0 Ingrowing nail (principal); L60.3 Nail dystrophy; M79.672 Pain in left foot | CPT/HCPCS: 99213; 99214 ==

== ENCOUNTER → 2022-03-13 11:14 | Outpatient (BNVA) | payer MEDICARE, SELFPAY | PROVIDERS: PCP Internal Medicine; Visit Provider Podiatrist Foot & Ankle Surgery | DX: L60.0 Ingrowing nail (principal); L60.3 Nail dystrophy; M79.672 Pain in left foot | CPT/HCPCS: 99213 ==

== ENCOUNTER 2022-03-27 15:09 | Outpatient (RCR) | payer SELFPAY | END 2022-04-25 23:59 | disposition home or self-care (01) | LOC: CR 15:09 | PROVIDERS: PCP Internal Medicine; Referring Provider Internal Medicine Cardiovascular Disease; Visit Provider Internal Medicine | DX: Z95.5 Presence of coronary angioplasty implant and graft (principal) ==

== ENCOUNTER 2022-03-28 09:49 | Emergency (ER) | payer MEDICARE, SELFPAY ==
[2022-03-28 09:56] VITALS: BP 125/87; PULSE 69; RESP 18; TEMP 36.2; O2SAT 95; BMI 32.2
--- NOTE | 2022-03-28 11:08 | ED_ITS ---
Documented by User: Em Pulido PA-C 03/28/22 12:13 HPI - Headache General: Chief Complaint: Headache Stated Complaint: headaches Time Seen by Provider: 03/28/22 10:20 Source: patient Mode of arrival: ambulatory Limitations: no limitations History of Present Illness: 71-year-old female presents to the ER today for headaches. Patient reports she is always had a history of migraines off and on however she was started on amiodarone over the summer. After this started she started having daily migraines. Patient reports she went back to the logging superintendent who cut the medicine in half and then totally stop the medication. She was told he had a long half-life so those could continue for a few weeks however this is been going on for 3 months now. Patient reports she is having to take Imitrex daily. She reports she only takes 1 tab a day however that does not even stop her headaches. Patient reports more recently she has noticed that her headaches are very sharp and stabbing in nature behind her eyes and then migrate to the back of her head. Patient reports she has nausea but tries to take an Imitrex before the nausea settles in. She denies any aura. Patient reports she did see ENT this week thinking maybe it was something with that however everything was normal there. Patient denies any confusion or mental status changes. She does report some dizziness associated with bad headaches. Patient reports she last had a CT of her head done several years ago. She has never taken a preventative medication for migraines. Patient has never seen neurology for this either. Patient reports her PCP was Dr. Arthur however she recently changed to Dr. Gonzales. Review of Systems General: Reports: 10 or more systems reviewed and unremarkable except in HPI and below PFSH ED PFSH: Medical History ASHD (arteriosclerotic heart disease) Fibromyalgia History of high blood pressure Hyperlipidemia Migraines Onychodystrophy Sleep apnea Ventricular arrhythmia Surgical History H/O shoulder surgery H/O tubal ligation H/O: knee surgery Presence of stent in LAD coronary artery Family History Mother CAD (coronary artery disease) Diabetes Stroke Brother CAD (coronary artery disease) Dementia Father Stroke Other Hyperlipidemia Hypertension Psychiatric illness Denies family history of Clotting disorder Chronic kidney disease (CKD) Suicide Anesthesia complication Bleeding disorder Lung disease Cancer Social History Smoking and tobacco status: former smoker (20-25 yrs ago) Alcohol intake: never Physical Exam Const: COMMON NORMALS: no acute distress, average body habitus, patient oriented x3, no limitations, healthy appearing, alert and well nourished HENMT: COMMON NORMALS: normocephalic, atraumatic, hearing grossly normal bilaterally, external ears normal, TM's normal bilaterally, Normal nasal mucous membranes and turbinates present and moist oral mucous membranes HEAD & SCALP: normocephalic and atraumatic NOSE: Normal nasal mucous membranes and turbinates present EXTERNAL EAR: Yes external ears normal TYMPANIC MEMBRANE: TM's normal bilaterally Eye: COMMON NORMALS: EOMs intact bilaterally and conjunctivae normal CONJUNCTIVA: Yes conjunctivae normal Neck/C-Spine: COMMON NORMALS: full ROM and no lymphadenopathy Resp: COMMON NORMALS: normal respiratory effort and No retractions Cardio: COMMON NORMALS: regular rate and regular rhythm RATE: regular rate RHYTHM: regular rhythm GI: COMMON NORMALS: Normal to inspection, nondistended, normoactive bowel sounds present, Soft to palpation and non-tender PALPATION: Yes Soft to palpation Back/Pelvis: COMMON NORMALS: thoraco-lumbar ROM normal Extremity: COMMON NORMALS: normal to inspection and full ROM Neuro: COMMON NORMALS: patient oriented x3 SENSORIUM/ORIENTATION: Yes alert Psych: COMMON NORMALS: mental status grossly normal, Normal thought process present and cooperative THOUGHT PROCESS: Normal thought process present Skin: COMMON NORMALS: no rashes or lesions noted and no wounds GENERAL SKIN EXAM: no rashes or lesions noted Course ED course: 71-year-old female presents to the ER today for headaches times 2+ months. Patient reports they are just continuing to worsen. At this time patient is taking Imitrex daily with only minimal improvement. Patient reports this all started when she started amiodarone however she has been taken off that and has been off of it for several weeks now and has no improvement. Patient reports daily nausea. Denies any aura associated. Patient does report some d izziness associated. Patient has recently seen ENT and everything was normal there. We will do basic labs today and also get a head CT with and without contrast to rule out any type of mass. Patient did drive herself so we will not do any medication which would make her drowsy at this time. Patient rates her pain a 5 out of 10 right now. Vital Signs: Vital signs: Vital Signs Temperature 97.1 F L 03/28/22 09:56 Pulse Rate 70 03/28/22 12:33 Respiratory Rate 16 03/28/22 12:33 Blood Pressure 142/87 03/28/22 12:33 Pulse Oximetry 96 03/28/22 12:33 Oxygen Delivery Me thod 03/28/22 12:33 MDM - Headache Medical Decision Making 71-year-old female presents to the ER today for headaches times 2+ months. Patient reports they are just continuing to worsen. At this time patient is taking Imitrex daily with only minimal improvement. Patient reports this all started when she started amiodarone however she has been taken off that and has been off of it for several weeks now and has no improvement. Patient reports daily nausea. Denies any aura associated. Patient does report some dizziness associated. Patient has recently seen ENT and everything was normal there. We will do basic labs today and also get a head CT with and without contrast to r ule out any type of mass. Patient did drive herself so we will not do any medication which would make her drowsy at this time. Patient rates her pain a 5 out of 10 right now. Patient's lab work is normal. Patient's head CT with and without contrast is also normal. I am unsure why patient is having these worsening migraines however Imitrex daily is not a long-term feasible option for her. I am hesitant to start patient on any other medication at this time without being able to monitor her. I would recommend a neurology referral to discuss chronic migraines with a neurologist. I will give patient Toradol in the ER and send her home with a couple days worth of Toradol. Will recommend p atient take Benadryl 50 mg 4 times a day and try to get some good rest. If headache does not improve or if things were to worsen she could return to the ER. Otherwise I recommend follow-up with her PCP in 4 to 5 days. Patient verbalized understanding and was in agreement with the treatment plan. Lab Data : 03/28/22 11:14 03/28/22 11:[address] 03/28/22 11:24 IMPRESSION: 1. Unremarkable CT scan of the brain with and without contrast. Laboratory Results WBC 5.3 10^3/uL (4.0-10.0) 03/28/22 11:14 RBC 4.54 10^6/uL (4.1-5.3) 03/28/22 11:14 Hgb 14.3 g/dL (11.5-15.3) 03/28/22 11:14 Hct 42.9 % (37.0-47.0) 03/28/22 11:14 MCV 94.5 fl (81-99) 03/28/22 11:14 MCH 31.5 pg (28.0-34.0) 03/28/22 11:14 MCHC 33.3 g/dL (30.0-36.0) 03/28/22 11:14 RDW 12.7 % (12.1-15.1) 03/28/22 11:14 Plt Count 219 10^3/cmm (130-400) 03/28/22 11:14 MPV 10.6 fL (7.4-10.4) H 03/28/22 11:14 Neut % (Auto) 54.7 % 03/28/22 11:14 Lymph % (Auto) 29.8 % 03/28/22 11:14 [place] % (Auto) 13.7 % 03/28/22 11:14 Eos % (Auto) 0.9 % 03/28/22 11:14 Baso % (Auto) 0.9 % 03/28/22 11:14 Neut # (Auto) 2.92 10^3/uL (1.8-7.7) 03/28/22 11:14 Lymph # (Auto) 1.6 10^3/uL (0.8-4.8) 03/28/22 11:14 [place] # (Auto) 0.7 10^3/uL (0.2-0.9) 03/28/22 11:14 Eos # (Auto) 0.1 10^3/uL (0.0-0.8) 03/28/22 11:14 Baso # (Auto) 0.1 10^3/uL (0.0-0.1) 03/28/22 11:14 Nucleated RBC % (auto) 0 % 03/28/22 11:14 Nucleated RBCs # 0.0 /100WBC 03/28/22 11:14 Sodium 133 mmol/L (136-145) L 03/28/22 11:14 Potassium 4.1 mmol/L (3.5-5.1) 03/28/22 11:14 Chloride 98 mmol/L (98-107) 03/28/22 11:14 Carbon Dioxide 25 mmol/L (22-29) 03/28/22 11:14 Anion Gap 14.1 (5-19) 03/28/22 11:14 BUN 12 mg/dL (8-23) 03/28/22 11:14 Creatinine 0.6 mg/dL (0.5-0.9) 03/28/22 11:14 GFR Calculation 98.8 mL/min (90-130) 03/28/22 11:14 Glucose 88 mg/dL (65-115) 03/28/22 11:14 Calculated Osmolality 275 mOsm/kg (285-295) L 03/28/22 11:14 Calcium 9.8 mg/dL (8.5-10.5) 03/28/22 11:14 Total Bilirubin 0.5 mg/dL (0.15-1.2) 03/28/22 11:14 AST 17 U/L (0-32) 03/28/22 11:14 ALT 16 U/L (0-33) 03/28/22 11:14 Alkaline Phosphatase 79 U/L (35-105) 03/28/22 11:14 Total Protein 7.4 g/dL (6.6-8.7) 03/28/22 11:14 Albumin 4.3 g/dL (3.5-5.2) 03/28/22 11:14 Globulin 3.1 g/dL (1.3-4.6) 03/28/22 11:14 Critical Care Time Critical Care Time: Critical Care Time: No Discharge Plan Discharge Patient Disposition: Home Clinical Impression: Chronic migraine without aura Qualifiers: Intractability: intractable Condition: Stable Prescriptions: New ketorolac 10 mg tablet 10 mg PO Q8H PRN (Reason: pain) 3 Days Qty: 12 0RF No Action magnesium oxide 400 mg magnesium tablet 400 mg PO DAILY nitroglycerin 0.4 mg tablet, sublingual 0.4 mg sublingual Q5M PRN (Reason: chest pain) 30 Days Qty: 30 3RF Rx Instructions: until response; do not exceed 3 doses per episode pantoprazole 40 mg tablet,delayed release (DR/EC) 40 mg PO DAILY sumatriptan succinate 50 mg tablet 25 mg PO Q2H PRN (Reason: Migraine Headache) cholecalciferol (vitamin D3) 50 mcg (2,000 unit) capsule 50 mcg PO DAILY diltiazem HCl 30 mg tablet 30 mg PO Q8H PRN (Reason: for arrhythmia) Qty: 60 0RF clopidogrel 75 mg tablet 75 mg PO DAILY Qty: 90 3RF rosuvastatin 5 mg tablet 5 mg PO DAILY Qty: 90 3RF metoprolol succinate 100 mg tablet extended release 24 hr 100 mg PO DAILY Qty: 90 1RF Eliquis 5 mg tablet 5 mg PO BID Qty: 60 5RF alprazolam 0.25 mg tablet 0.25 mg PO TID PRN (Reason: Anxiety) sumatriptan succinate 25 mg tablet 25 mg PO Q2H PRN (Reason: Headache) amlodipine 2.5 mg tablet 2.5 mg PO DAILY Discharge Orders: Discharge ED (Routine); Ordered 03/28/22 Ordered By: Em Pulido Referrals: Hong Arthur DO [Primary Care Provider] - Discharge Diet: Usual diet Discharge Activity: Resume usual activity Patient Instructions: Opioid Safety Activity Restrictions/Additional Instructions: Take ketorolac for the next few days. Do not take ibuprofen when taking this. Continue home medications. Would recommend 50 mg of Benadryl 4 times daily and rest. Sometimes sleep will help to rid the migraine. Patient should follow-up with her PCP in 4 to 5 days if no improvement. Return to the ER with new or worsening symptoms. Coding Level of Care Code ED Finish Specialist for Chg Fwd Exam Comprehensive Documented by User: Boby Vital DO 03/28/22 15:19 HPI - Headache General: Chief Complaint: Headache Stated Complaint: headaches Time Seen by Provider: 03/28/22 10:20 [facility] ED PFSH: Medical History ASHD (arteriosclerotic heart disease) Fibromyalgia History of high blood pressure Hyperlipidemia Migraines Onychodystrophy Sleep apnea Ventricular arrhythmia Surgical History H/O shoulder surgery H/O tubal ligation H/O: knee surgery Presence of stent in LAD coronary artery Family History Mother CAD (coronary artery disease) Diabetes Stroke Brother CAD (coronary artery disease) Dementia Father Stroke Other Hyperlipidemia Hypertension Psychiatric illness Denies family history of Clotting disorder Chronic kidney disease (CKD) Suicide Anesthesia complication Bleeding disorder Lung disease Cancer Social History Smoking and tobacco status: former smoker (20-25 yrs ago) Alcohol intake: never Course Vital Signs: Vital signs: Vital Signs Temperature 97.1 F L 03/28/22 09:56 Pulse Rate 70 03/28/22 12:33 Respiratory Rate 16 03/28/22 12:33 Blood Pressure 142/87 03/28/22 12:33 Pulse Oximetry 96 03/28/22 12:33 Oxygen Delivery Me thod 03/28/22 12:33 MDM - Headache Medical Decision Making 71-year-old female presents to the ER today for headaches times 2+ months. Patient reports they are just continuing to worsen. At this time patient is taking Imitrex daily with only minimal improvement. Patient reports this all started when she started amiodarone however she has been taken off that and has been off of it for several weeks now and has no improvement. Patient reports da linda nausea. Denies any aura associated. Patient does report some dizziness associated. Patient has recently seen ENT and everything was normal there. We will do basic labs today and also get a head CT with and without contrast to rule out any type of mass. Patient did drive herself so we will not do any medication which would make her drowsy at this time. Patient rates her pain a 5 out of 10 right now. Patient's lab work is normal. Patient's head CT with and without contrast is also normal. I am unsure why patient is having these worsening migraines however Imitrex daily is not a long-term feasible option for her. I am hesitant to start patient on any other medication at this time without being able to monitor her. I would recommend a neurology referral to discuss chronic migraines with a neurologist. I will give patient Toradol in the ER and send her home with a couple days worth of Toradol. Will recommend patient take Benadryl 50 mg 4 times a day and try to get some good rest. If headache does not improve or if things were to worsen she could return to the ER. Otherwise I recommend follow-up with her PCP in 4 to 5 days. Patient verbalized understanding and was in agreement with the treatment plan. Chart reviewed and patient discussed with midlevel. Agree with assessment and plan. Lab Data : 03/28/22 11:14 03/28/22 11:[address] 03/28/22 11:24 IMPRESSION: 1. Unremarkable CT scan of the brain with and without contrast. Laboratory Results WBC 5.3 10^3/uL (4.0-10.0) 03/28/22 11:14 RBC 4.54 10^6/uL (4.1-5.3) 03/28/22 11:14 Hgb 14.3 g/dL (11.5-15.3) 03/28/22 11:14 Hct 42.9 % (37.0-47.0) 03/28/22 11:14 MCV 94.5 fl (81-99) 03/28/22 11:14 MCH 31.5 pg (28.0-34.0) 03/28/22 11:14 MCHC 33.3 g/dL (30.0-36.0) 03/28/22 11:14 RDW 12.7 % (12.1-15.1) 03/28/22 11:14 Plt Count 219 10^3/cmm (130-400) 03/28/22 11:14 MPV 10.6 fL (7.4-10.4) H 03/28/22 11:14 Neut % (Auto) 54.7 % 03/28/22 11:14 Lymph % (Auto) 29.8 % 03/28/22 11:14 [place] % (Auto) 13.7 % 03/28/22 11:14 Eos % (Auto) 0.9 % 03/28/22 11:14 Baso % (Auto) 0.9 % 03/28/22 11:14 Neut # (Auto) 2.92 10^3/uL (1.8-7.7) 03/28/22 11:14 Lymph # (Auto) 1.6 10^3/uL (0.8-4.8) 03/28/22 11:14 [place] # (Auto) 0.7 10^3/uL (0.2-0.9) 03/28/22 11:14 Eos # (Auto) 0.1 10^3/uL (0.0-0.8) 03/28/22 11:14 Baso # (Auto) 0.1 10^3/uL (0.0-0.1) 03/28/22 11:14 Nucleated RBC % (auto) 0 % 03/28/22 11:14 Nucleated RBCs # 0.0 /100WBC 03/28/22 11:14 Sodium 133 mmol/L (136-145) L 03/28/22 11:14 Potassium 4.1 mmol/L (3.5-5.1) 03/28/22 11:14 Chloride 98 mmol/L (98-107) 03/28/22 11:14 Carbon Dioxide 25 mmol/L (22-29) 03/28/22 11:14 Anion Gap 14.1 (5-19) 03/28/22 11:14 BUN 12 mg/dL (8-23) 03/28/22 11:14 Creatinine 0.6 mg/dL (0.5-0.9) 03/28/22 11:14 GFR Calculation 98.8 mL/min (90-130) 03/28/22 11:14 Glucose 88 mg/dL (65-115) 03/28/22 11:14 Calculated Osmolality 275 mOsm/kg (285-295) L 03/28/22 11:14 Calcium 9.8 mg/dL (8.5-10.5) 03/28/22 11:14 Total Bilirubin 0.5 mg/dL (0.15-1.2) 03/28/22 11:14 AST 17 U/L (0-32) 03/28/22 11:14 ALT 16 U/L (0-33) 03/28/22 11:14 Alkaline Phosphatase 79 U/L (35-105) 03/28/22 11:14 Total Protein 7.4 g/dL (6.6-8.7) 03/28/22 11:14 Albumin 4.3 g/dL (3.5-5.2) 03/28/22 11:14 Globulin 3.1 g/dL (1.3-4.6) 03/28/22 11:14 Discharge Plan Discharge Patient Disposition: Home Clinical Impression: Chronic migraine without aura Qualifiers: Intractability: intractable Condition: Stable Prescriptions: New ketorolac 10 mg tablet 10 mg PO Q8H PRN (Reason: pain) 3 Days Qty: 12 0RF No Action magnesium oxide 400 mg magnesium tablet 400 mg PO DAILY nitroglycerin 0.4 mg tablet, sublingual 0.4 mg sublingual Q5M PRN (Reason: chest pain) 30 Days Qty: 30 3RF Rx Instructions: until response; do not exceed 3 doses per episode pantoprazole 40 mg tablet,delayed release (DR/EC) 40 mg PO DAILY sumatriptan succinate 50 mg tablet 25 mg PO Q2H PRN (Reason: Migraine Headache) cholecalciferol (vitamin D3) 50 mcg (2,000 unit) capsule 50 mcg PO DAILY diltiazem HCl 30 mg tablet 30 mg PO Q8H PRN (Reason: for arrhythmia) Qty: 60 0RF clopidogrel 75 mg tablet 75 mg PO DAILY Qty: 90 3RF rosuvastatin 5 mg tablet 5 mg PO DAILY Qty: 90 3RF metoprolol succinate 100 mg tablet extended release 24 hr 100 mg PO DAILY Qty: 90 1RF Eliquis 5 mg tablet 5 mg PO BID Qty: 60 5RF alprazolam 0.25 mg tablet 0.25 mg PO TID PRN (Reason: Anxiety) sumatriptan succinate 25 mg tablet 25 mg PO Q2H PRN (Reason: Headache) amlodipine 2.5 mg tablet 2.5 mg PO DAILY Discharge Orders: Discharge ED (Routine); Ordered 03/28/22 Ordered By: Em Pulido Referrals: Hong Arthur DO [Primary Care Provider] - Discharge Diet: Usual diet Discharge Activity: Resume usual activity Patient Instructions: Opioid Safety Activity Restrictions/Additional Instructions: Take ketorolac for the next few days. Do not take ibuprofen when taking this. Continue home medications. Would recommend 50 mg of Benadryl 4 times daily and rest. Sometimes sleep will help to rid the migraine. Patient should follow-up with her PCP in 4 to 5 days if no improvement. Return to the ER with new or worsening symptoms. Coding Level of Care Code ED Finish Specialist for Cee Fwnell Exam Comprehensive
[2022-03-28 11:17] LABS: Basophils # 0.1 10^3/uL (0.0-0.1); Basophils % 0.9 %; Eosinophils # 0.1 10^3/uL (0.0-0.8); Eosinophils % 0.9 %; Hematocrit 42.9 % (37.0-47.0); Hemoglobin 14.3 g/dL (11.5-15.3); Lymphocytes # 1.6 10^3/uL (0.8-4.8); Lymphocytes % 29.8 %; Mean Corpuscular HGB Conc 33.3 g/dL (30.0-36.0); Mean Corpuscular Hemoglobin 31.5 pg (28.0-34.0); Mean Corpuscular Volume 94.5 fl (81-99); Mean Platelet Volume 10.6 fL (7.4-10.4); Monocytes # 0.7 10^3/uL (0.2-0.9); Monocytes % 13.7 %; Neutrophils # 2.92 10^3/uL (1.8-7.7); Neutrophils % 54.7 %; Nucleated Red Blood Cells % 0 %; Platelet Count 219 10^3/cmm (130-400); Red Blood Count 4.54 10^6/uL (4.1-5.3); Red Cell Distribution Width 12.7 % (12.1-15.1); White Blood Count 5.3 10^3/uL (4.0-10.0)
--- NOTE | 2022-03-28 11:24 | CT_ITS ---
WS: [id number] Comparison 11/22/2020. Exam: CT head wo/w con [id number] Date/Time of Exam: 03/28/2022 11:24 AM Reason For Exam: worsening headaches; daily DLP: 2051.[address] scans at [facility] use at least one of these dose optimization techniques: automated e xposure control; mA and/or kV adjustment per patient size (includes targeted exams where dose is matc hed to clinical indication); or iterative reconstruction. Comparison 11/22/2020. No sign of acute intracranial bleed or space-occupying mass. No contrast-enhancing abnormalities are demonstrated. The ventricles and basal cisterns are normal in size and configuration. No extra-axial fluid collections are noted. The skull is intact. Unremarkable orbits and optic globes. The mastoids and facial sinuses are clear. No change since prior study. CT/CT head wo/w con [id number] IMPRESSION: 1. Unremarkable CT scan of the brain with and without contrast.
[2022-03-28 11:37] LABS: Alanine Aminotransferase 16 U/L (0-33); Albumin Level 4.3 g/dL (3.5-5.2); Alkaline Phosphatase 79 U/L (35-105); Anion Gap 14.1 (5-19); Aspartate Amino Transferase 17 U/L (0-32); Blood Urea Nitrogen 12 mg/dL (8-23); Calcium 9.8 mg/dL (8.5-10.5); Carbon Dioxide 25 mmol/L (22-29); Chloride 98 mmol/L (98-107); Globulin 3.1 g/dL (1.3-4.6); Glomerular Filtration Rate 98.8 mL/min (90-130); Glucose 88 mg/dL (65-115); Osmolality Calculated 275 mOsm/kg (285-295); Potassium 4.1 mmol/L (3.5-5.1); Sodium 133 mmol/L (136-145); Total Bilirubin 0.5 mg/dL (0.15-1.2); Total Protein 7.4 g/dL (6.6-8.7)
[2022-03-28] MEDS: ketorolac 30 mg/mL INJ IVP (12:18)
[2022-03-28 12:33] VITALS: BP 142/87; PULSE 70; RESP 16; O2SAT 96
--- NOTE | 2022-04-01 08:57 | DCPLANNER ---
Addendum entered by Roberta So 05/15/22 14:21: appointment was cancelled Addendum entered by Roberta So 04/11/22 12:20: Patient has a follow up appointment scheduled for Thursday, May 05, 2022 at 12:[address] Acosta at neurology. Clinic will call patient with appointment information. Original Note: manager ambulatory had message to schedule a follow up appointment for patient with neurology. manager ambulatory sent patients information to the front office staff at neurology. Patients information will be printed and reviewed. Clinic will call patient with appointment information.
== END 2022-03-28 12:30 | disposition home or self-care (01) ==
PROVIDERS: Emergency Provider Physician Assistant; PCP Internal Medicine
DX: G43.719 Chronic migraine without aura, intractable, without status migrainosus (principal); Z79.02 Long term (current) use of antithrombotics/antiplatelets; Z79.01 Long term (current) use of anticoagulants; Z87.891 Personal history of nicotine dependence; E78.5 Hyperlipidemia, unspecified
CPT/HCPCS: 36415; 70470; 80053; 80503; 85025; 96374; 99284; J1885; Q9967

== ENCOUNTER 2022-04-15 09:04 | Outpatient (CLI) | payer MEDICARE, SELFPAY ==
--- NOTE | 2022-04-15 09:07 | MM_ITS ---
WS: [id number] BILATERAL SCREENING DIGITAL TOMOSYNTHESIS MAMMOGRAM WITH CAD HISTORY: SCREENING COMPARISON: 04/09/2021 and 02/23/2020 Bilateral CC and MLO views with tomosynthesis and synthetic mammography submitted. Computer aided det ection analyzed. Breast composition: There are scattered areas of fibroglandular density. No suspicious masses, microc alcifications or architectural distortion. MM/[place] [id number] IMPRESSION: BI-RADS: 1-Negative FOLLOW UP: 1 Year Follow-up
== END 2022-04-15 09:05 | disposition home or self-care (01) ==
LOC: RAD 09:05
PROVIDERS: PCP Electrodiagnostic Medicine; Visit Provider Electrodiagnostic Medicine
DX: Z12.31 Encounter for screening mammogram for malignant neoplasm of breast (principal)
CPT/HCPCS: 77063; 77067

== ENCOUNTER 2022-04-28 09:54 | Outpatient (RCR) | payer SELFPAY | END 2022-05-26 23:59 | disposition home or self-care (01) | LOC: CR 09:54 | PROVIDERS: PCP Electrodiagnostic Medicine; Referring Provider Internal Medicine Cardiovascular Disease; Visit Provider Internal Medicine | DX: Z95.5 Presence of coronary angioplasty implant and graft (principal) ==

== ENCOUNTER → 2022-04-29 14:23 | Outpatient (BNVA) | payer MEDICARE, SELFPAY | PROVIDERS: PCP Electrodiagnostic Medicine; Visit Provider Internal Medicine Cardiovascular Disease | DX: I48.91 Unspecified atrial fibrillation (principal); Z79.01 Long term (current) use of anticoagulants; I10 Essential (primary) hypertension; I25.10 Atherosclerotic heart disease of native coronary artery without angina pectoris; Z87.891 Personal history of nicotine dependence; G47.33 Obstructive sleep apnea (adult) (pediatric); E78.2 Mixed hyperlipidemia | CPT/HCPCS: 99214 ==

== ENCOUNTER 2022-05-24 12:55 | Emergency (ER) | payer MEDICARE, SELFPAY ==
[2022-05-24 12:58] VITALS: BP 158/92; PULSE 76; RESP 16; TEMP 36.4; O2SAT 98; BMI 32.2
--- NOTE | 2022-05-24 13:10 | XRR_ITS ---
PROCEDURE INFORMATION: Exam: XR Chest Exam date and time: 05/24/2022 1:51 PM Age: 71 years old Clinical indication: Cough and shortness of breath; Prior surgery; Additional info: SOB TECHNIQUE: Imaging protocol: Radiologic exam of the chest. Views: 1 view. COMPARISON: CR XR chest 1V portable [id number] 01/12/2022 11:43 AM FINDINGS: Lungs: There are hazy opacities at the left lung base. Pleural spaces: No large pleural effusion visualized. Left costophrenic angle is not well seen. Heart/Mediastinum: Unremarkable. No cardiomegaly. Bones/joints: Unremarkable. XR/XR chest 1V portable [id number] IMPRESSION: There are hazy opacities at the left lung base. These are nonspecific and may represent atelectasis and or pneumonia.
[2022-05-24 13:25] VITALS: BP 158/87
[2022-05-24 13:30] VITALS: PULSE 78; O2SAT 98
--- NOTE | 2022-05-24 13:33 | ECG_ITS ---
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 Measurements Intervals [place] Rate: 72 P: 14 MO: 149 QRS: 5 QRSD: 84 T: -31 QT: 363 QTc: 399 Interpretive Statements SINUS RHYTHM MODERATE T-WAVE ABNORMALITY, CONSIDER ANTEROLATERAL ISCHEMIA [-0.1+ mV T-WAVE IN V3-V6] Compared to ECG 01/12/2022 12:55:44 T-wave abnormality now present Possible ischemia now present Electronically Signed On 05-25-2022 10:14:36 CDT by Franco Dennison M.D. [id number]
--- NOTE | 2022-05-24 13:46 | W.ED.SOB ---
HPI - SOB/Dyspnea General: Chief Complaint: Shortness of Breath/Dyspnea Stated Complaint: SOB possible blood clot, sent from Time Seen by Provider: 05/24/22 13:38 History of Present Illness: HPI Narrative: 71 year-old female presents to the dyspnea. Patient reports that she recently had an extended stay at [facility] where she was to have an ablation. When they went to do the ablation she was found to have fluid on her heart. That they had to drain the fluid. That she was also found to have a blood clot in her right lower leg. That she was started on Lovenox. Patient return from [facility] yesterday. Patient noticed that she is just has significant shortness of breath especially with ambulating. Patient called her parachute panel joiner who was concerned about potential pulmonary embolism and asked her to come into the ER for further evaluation. Associated symptoms: Deny abdominal pain, chest pain, dizziness, fever(s), nausea, palpitations or vomiting Review of Systems Const: Denies: fever(s) or chills Card: Denies: chest pain or palpitations Resp: Reports: dyspnea; Denies: productive cough or non-productive cough GI: Denies: abdominal pain, nausea or vomiting : Denies: difficulty voiding or urinary frequency Musc: Denies: extremity swelling Skin/Breast: Denies: rash or erythema Neuro: Denies: headache(s) or dizziness Psych: Denies: anxiety or depression PFSH ED PFSH: Medical History ASHD (arteriosclerotic heart disease) Fibromyalgia History of high blood pressure Hyperlipidemia Migraines Onychodystrophy Sleep apnea Ventricular arrhythmia Surgical History H/O shoulder surgery H/O tubal ligation H/O: knee surgery Presence of stent in LAD coronary artery Family History Mother CAD (coronary artery disease) Diabetes Stroke Brother CAD (coronary artery disease) Dementia Father Stroke Other Hyperlipidemia Hypertension Psychiatric illness Denies family history of Clotting disorder Chronic kidney disease (CKD) Suicide Anesthesia complication Bleeding disorder Lung disease Cancer Social History Smoking and tobacco status: former smoker Alcohol intake: never Physical Exam Const: COMMON NORMALS: no acute distress, patient oriented x3 and alert Resp: COMMON NORMALS: normal respiratory effort, No retractions, No use of accessory muscles and clear to auscultation bilaterally AUSCULTATION: clear to auscultation bilaterally Cardio: COMMON NORMALS: regular rate and regular rhythm RATE: regular rate RHYTHM: regular rhythm GI: COMMON NORMALS: Normal to inspection, nondistended, normoactive bowel sounds present, Soft to palpation and non-tender PALPATION: Yes Soft to palpation Extremity: COMMON NORMALS: full ROM and capillary refill normal Neuro: COMMON NORMALS: patient oriented x3, CN's II-XII intact bilaterally, moves all extremities and no focal motor deficits SENSORIUM/ORIENTATION: Yes alert Psych: COMMON NORMALS: mental status grossly normal, Normal thought process present, cooperative and speech normal SPEECH: Yes normal speech THOUGHT PROCESS: Normal thought process present Skin: COMMON NORMALS: no rashes or lesions noted and turgor normal GENERAL SKIN EXAM: no rashes or lesions noted and turgor normal Course Vital Signs: Vital signs: Vital Signs Temperature 97.5 F L 05/24/22 12:58 Pulse Rate 76 05/24/22 12:58 Respiratory Rate 16 05/24/22 12:58 Blood Pressure 158/92 05/24/22 12:58 Pulse Oximetry 98 05/24/22 12:58 Oxygen Delivery Me thod 05/24/22 12:58 MDM - SOB/Dyspnea Medical Decision Making Patient with small pulmonary embolism in the right pulmonary artery. Patient Eliquis is already been up to twice daily by her parachute panel joiner. She is currently under proper treatment. Recommend she follow-up with her primary care provider and parachute panel joiner on Thursday or Thursday Make them aware of her pulmonary embolism. She should continue taking her Eliquis as prescribed twice daily that she just started yesterday. Patient stable and discharged home Lab Data : 05/24/22 13:45 05/24/22 13:45 Labs/Radiology: Radiology Impressions Chest X-Ray 05/24/22 13:10 IMPRESSION: There are hazy opacities at the left lung base. These are nonspecific and may represent atelectasis and or pneumonia. Chest CTA 05/24/22 14:51 IMPRESSION: There are small pulmonary emboli in 2nd and 3rd order branches of the right pulmonary artery supplying the right lower lobe. ADDENDUM: 05/24/22 1538 CRITICAL RESULT: The study was personally discussed on the telephone with RICHARD St on 05/24/2022 3:36 PM CDT. The results were understood and acknowledged. Laboratory Results WBC 7.0 10^3/uL (4.0-10.0) 05/24/22 13:45 RBC 4.16 10^6/uL (4.1-5.3) 05/24/22 13:45 Hgb 13.0 g/dL (11.5-15.3) 05/24/22 13:45 Hct 39.1 % (37.0-47.0) 05/24/22 13:45 MCV 94.0 fl (81-99) 05/24/22 13:45 MCH 31.3 pg (28.0-34.0) 05/24/22 13:45 MCHC 33.2 g/dL (30.0-36.0) 05/24/22 13:45 RDW 12.5 % (12.1-15.1) 05/24/22 13:45 Plt Count 228 10^3/cmm (130-400) 05/24/22 13:45 MPV 10.5 fL (7.4-10.4) H 05/24/22 13:45 Neut % (Auto) 63.8 % 05/24/22 13:45 Lymph % (Auto) 22.2 % 05/24/22 13:45 [place] % (Auto) 10.5 % 05/24/22 13:45 Eos % (Auto) 2.3 % 05/24/22 13:45 Baso % (Auto) 0.9 % 05/24/22 13:45 Neut # (Auto) 4.50 10^3/uL (1.8-7.7) 05/24/22 13:45 Lymph # (Auto) 1.6 10^3/uL (0.8-4.8) 05/24/22 13:45 [place] # (Auto) 0.7 10^3/uL (0.2-0.9) 05/24/22 13:45 Eos # (Auto) 0.2 10^3/uL (0.0-0.8) 05/24/22 13:45 Baso # (Auto) 0.1 10^3/uL (0.0-0.1) 05/24/22 13:45 Nucleated RBC % (auto) 0 % 05/24/22 13:45 Nucleated RBCs # 0.0 /100WBC 05/24/22 13:45 Sodium 137 mmol/L (136-145) 05/24/22 13:45 Potassium 3.8 mmol/L (3.5-5.1) 05/24/22 13:45 Chloride 100 mmol/L (98-107) 05/24/22 13:45 Carbon Dioxide 24 mmol/L (22-29) 05/24/22 13:45 Anion Gap 16.8 (5-19) 05/24/22 13:45 BUN 8 mg/dL (8-23) 05/24/22 13:45 Creatinine 0.6 mg/dL (0.5-0.9) 05/24/22 13:45 GFR Calculation 98.8 mL/min (90-130) 05/24/22 13:45 Glucose 86 mg/dL (65-115) 05/24/22 13:45 Calculated Osmolality 282 mOsm/kg (285-295) L 05/24/22 13:45 Lactic Acid 1.0 mmol/L (0.5-2.2) 05/24/22 13:45 Calcium 9.9 mg/dL (8.5-10.5) 05/24/22 13:45 Total Bilirubin 0.5 mg/dL (0.15-1.2) 05/24/22 13:45 AST 20 U/L (0-32) 05/24/22 13:45 ALT 19 U/L (0-33) 05/24/22 13:45 Alkaline Phosphatase 75 U/L (35-105) 05/24/22 13:45 Troponin T Baseline 15 ng/L (0-10) H 05/24/22 13:45 NT-Pro-B Natriuret Pep 1879 pg/mL (0-125) H 05/24/22 13:45 Total Protein 7.5 g/dL (6.6-8.7) 05/24/22 13:45 Albumin 4.5 g/dL (3.5-5.2) 05/24/22 13:45 Globulin 3.0 g/dL (1.3-4.6) 05/24/22 13:45 Discharge Plan Discharge Condition: Stable Prescriptions: No Action magnesium oxide 400 mg magnesium tablet 400 mg PO DAILY nitroglycerin 0.4 mg tablet, sublingual 0.4 mg sublingual Q5M PRN (Reason: chest pain) 30 Days Qty: 30 3RF Rx Instructions: until response; do not exceed 3 doses per episode pantoprazole 40 mg tablet,delayed release (DR/EC) 40 mg PO DAILY sumatriptan succinate 50 mg tablet 25 mg PO Q2H PRN (Reason: Migraine Headache) cholecalciferol (vitamin D3) 50 mcg (2,000 unit) capsule 50 mcg PO DAILY diltiazem HCl 30 mg tablet 30 mg PO Q8H PRN (Reason: for arrhythmia) Qty: 60 0RF clopidogrel 75 mg tablet 75 mg PO DAILY Qty: 90 3RF rosuvastatin 5 mg tablet 5 mg PO DAILY Qty: 90 3RF metoprolol succinate 100 mg tablet extended release 24 hr 100 mg PO DAILY Qty: 90 1RF Eliquis 5 mg tablet 5 mg PO BID Qty: 60 5RF alprazolam 0.25 mg tablet 0.25 mg PO TID PRN (Reason: Anxiety) sumatriptan succinate 25 mg tablet 25 mg PO Q2H PRN (Reason: Headache) amlodipine 2.5 mg tablet 2.5 mg PO DAILY Referrals: Nelson Gonzales DO [Primary Care Provider] - Coding Level of Care Code ED Radiochemical Technician for Chg Fwd Exam Comprehensive
[2022-05-24 13:51] LABS: Basophils # 0.1 10^3/uL (0.0-0.1); Basophils % 0.9 %; Eosinophils # 0.2 10^3/uL (0.0-0.8); Eosinophils % 2.3 %; Hematocrit 39.1 % (37.0-47.0); Lymphocytes # 1.6 10^3/uL (0.8-4.8); Lymphocytes % 22.2 %; Mean Corpuscular HGB Conc 33.2 g/dL (30.0-36.0); Mean Corpuscular Hemoglobin 31.3 pg (28.0-34.0); Mean Platelet Volume 10.5 fL (7.4-10.4); Monocytes # 0.7 10^3/uL (0.2-0.9); Monocytes % 10.5 %; Neutrophils % 63.8 %; Nucleated Red Blood Cells % 0 %; Platelet Count 228 10^3/cmm (130-400); Red Blood Count 4.16 10^6/uL (4.1-5.3); Red Cell Distribution Width 12.5 % (12.1-15.1)
[2022-05-24 14:05] VITALS: PULSE 87; O2SAT 98
[2022-05-24 14:17] LABS: Troponin(5th) Baseline 15 ng/L (0-10)
[2022-05-24 14:24] LABS: Alanine Aminotransferase 19 U/L (0-33); Albumin Level 4.5 g/dL (3.5-5.2); Alkaline Phosphatase 75 U/L (35-105); Anion Gap 16.8 (5-19); Aspartate Amino Transferase 20 U/L (0-32); Blood Urea Nitrogen 8 mg/dL (8-23); Calcium 9.9 mg/dL (8.5-10.5); Carbon Dioxide 24 mmol/L (22-29); Chloride 100 mmol/L (98-107); Glomerular Filtration Rate 98.8 mL/min (90-130); Glucose 86 mg/dL (65-115); NT Pro B Type Natriuretic Pept 1879 pg/mL (0-125); Osmolality Calculated 282 mOsm/kg (285-295); Potassium 3.8 mmol/L (3.5-5.1); Sodium 137 mmol/L (136-145); Total Bilirubin 0.5 mg/dL (0.15-1.2); Total Protein 7.5 g/dL (6.6-8.7)
[2022-05-24 14:30] VITALS: PULSE 76; O2SAT 95
--- NOTE | 2022-05-24 14:51 | CTR_ITS ---
PROCEDURE INFORMATION: Exam: CTA Chest With Contrast Exam date and time: 05/24/2022 3:02 PM Age: 71 years old Clinical indication: Shortness of breath; Prior surgery; Additional info: R/O pe TECHNIQUE: Imaging protocol: Computed tomographic angiography of the chest with contrast. 3D rendering (Not supervised by radiologist): MIP and/or 3D reconstructed images were created by the technologist. Radiation optimization: All CT scans at this facility use at least one of these dose optimization techniques: automated exposure control; mA and/or kV adjustment per patient size (includes targeted exams where dose is matched to clinical indication); or iterative reconstruction. Contrast material: OMNIPAQUE 350; Contrast volume: 77 ml; Contrast route: INTRAVENOUS (IV); COMPARISON: CR (CHEST, ) 05/24/2022 1:51 PM RADIATION DOSE METRICS: Total DLP (mGy-cm): 369.15 FINDINGS: Pulmonary arteries: There are small pulmonary emboli in 2nd and 3rd order branches of the right pulmonary artery supplying the right lower lobe. Aorta: Unremarkable. No aortic aneurysm. No aortic dissection. Lungs: Unremarkable. No consolidation. No masses. Pleural spaces: Unremarkable. No pneumothorax. No pleural effusion. Heart: Multivessel atherosclerotic disease which involves the coronary arteries. Heart RV/LV ratio: Normal RV/LV ratio of 0.85. Lymph nodes: Unremarkable. No enlarged lymph nodes. Bones/joints: Unremarkable. No acute fracture. Soft tissues: Unremarkable. CT/CT angio chest PE protcl [id number] IMPRESSION: There are small pulmonary emboli in 2nd and 3rd order branches of the right pulmonary artery supplying the right lower lobe.
[2022-05-24] MEDS: iohexol 350 mg/mL 100 mL Btl IV (15:08)
[2022-05-24 15:30] VITALS: PULSE 78; O2SAT 94
[2022-05-24 16:47] LABS: Troponin 5 2HR 14.41 ng/L (0-10)
[2022-05-24 17:01] LABS: Troponin 5 2HR Delta -0.59 ABS# (0-10)
== END 2022-05-24 16:05 | disposition home or self-care (01) ==
PROVIDERS: Emergency Medicine; Emergency Provider Student in an Organized Health Care Education/Training Program; PCP Electrodiagnostic Medicine
DX: R06.00 Dyspnea, unspecified (principal); Z79.02 Long term (current) use of antithrombotics/antiplatelets; Z79.01 Long term (current) use of anticoagulants; Z87.891 Personal history of nicotine dependence; E78.5 Hyperlipidemia, unspecified
CPT/HCPCS: 71045; 71275; 80053; 83605; 83880; 84484; 85025; 93005; 99285; Q9967

== ENCOUNTER 2022-05-27 10:32 | Outpatient (RCR) | payer SELFPAY | END 2022-06-25 23:59 | disposition home or self-care (01) | LOC: CR 10:32 | PROVIDERS: PCP Electrodiagnostic Medicine; Referring Provider Internal Medicine Cardiovascular Disease; Visit Provider Internal Medicine | DX: Z95.5 Presence of coronary angioplasty implant and graft (principal) ==

== ENCOUNTER 2022-06-07 19:14 | Emergency (ER) | payer MEDICARE, SELFPAY ==
[2022-06-07 19:19] VITALS: BP 163/104; PULSE 78; RESP 16; TEMP 36.4; O2SAT 97
[2022-06-07 19:24] VITALS: BP 158/120; RESP 18; O2SAT 96
--- NOTE | 2022-06-07 19:34 | ECG_ITS ---
[facility] Test Date: 2022-06-07 Pat Name: Christy Oquendo Department: Room: Gender: Female Telecommunications Clerk: : 1950 Requested By: Amari Massey Order Number: [id number] Kem MD: Mike Jett M.D. Measurements Intervals [place] Rate: 69 P: 21 [place]: 155 QRS: -20 QRSD: 89 T: -18 QT: 357 QTc: 383 Interpretive Statements SINUS RHYTHM VOLTAGE CRITERIA FOR LVH [MEETS CRITERIA IN ONE OF: R(aVL), S(V1), R(V5), R(V5/V6)+S(V1)] POSSIBLE ANTERIOR MYOCARDIAL INFARCTION , OF INDETERMINATE AGE [30 ms Q WAVE IN V3/V4, OR R < 0.2 mV IN V4] Compared to ECG 05/24/2022 13:33:19 Left ventricular hypertrophy now present Myocardial infarct finding now present T-wave abnormality no longer present Possible ischemia no longer present Electronically Signed On 06-08-2022 22:11:36 ANIMAL ASSISTED THERAPIST by Mike Jett M.D. [email or web address]
--- NOTE | 2022-06-07 19:50 | XRR_ITS ---
PROCEDURE INFORMATION: Exam: XR Chest Exam date and time: 06/07/2022 8:59 PM Age: 71 years old Clinical indication: Pain; Chest pressure; Additional info: Cp TECHNIQUE: Imaging protocol: Radiologic exam of the chest. Views: 1 view. COMPARISON: CR (CHEST, ) 05/24/2022 1:51 PM FINDINGS: Lungs: Unremarkable. No consolidation. Pleural spaces: Unremarkable. No pleural effusion. No pneumothorax. Heart/Mediastinum: Unremarkable. No cardiomegaly. Bones/joints: Unremarkable. XR/XR chest 1V portable [id number] IMPRESSION: No acute findings.
--- NOTE | 2022-06-07 19:51 | ED_ITS ---
HPI - Chest Pain General: Chief Complaint: Chest Pain Stated Complaint: High BP, Head pain, High HR Time Seen by Provider: 06/07/22 19:26 Source: patient Mode of arrival: ambulatory Limitations: no limitations History of Present Illness: This patient made her way to the emergency department this evening because she has had a squeezing headache off and on throughout the day that was gradual in onset and also has noted her blood pressure seemed higher than normal this evening. She was out and about doing activities outside the home and felt a little breathless at times and the combination of all the symptoms caused her to make her way to the emergency department. She denies any chest pain per se but is aware that her heart was beating a little faster than normal at times today. She does have a history of atrial fibrillation as well as a has a history of recent pericardial effusion with a pericardiocentesis done at [facility]. There was in anticipation of having a cardiac ablation however the discovery of pericardial effusion obviated that procedure. She states that she recently was diagnosed with a small pulmonary embolus and is on Eliquis 5 mg twice daily. She denies any use of ibu profen Aleve etc. Again to reiterate that she is having no chest pain but just the awareness that her heart was beating like it does and on occasion when she goes into rapid ventricular response. Associated symptoms: Reports palpitations; Deny abdominal pain, fever(s), nausea, syncope or vomiting Risk Factors: Pulmonary embolism risk factors: history of deep vein thrombosis and history of pulmonary embolism Review of Systems Const: Denies: fever(s), chills or body aches Eyes: Denies: change in vision ENMT: Denies: throat pain, odynophagia, nasal discharge, nasal congestion or nasal obstruction Card: Reports: palpitations, irregular heart rhythm, lightheadedness and dyspnea on exertion; Denies: chest pain, syncope or pre-syncope Resp: Denies: productive cough, non-productive cough, wheezing or stridor GI: Denies: abdominal pain, nausea, vomiting or diarrhea : Denies: flank pain, difficulty voiding, dysuria or urinary frequency Musc: Denies: neck pain, back pain, extremity pain or extremity swelling Skin/Breast: Denies: rash Neuro: Reports: headache(s); Denies: numbness in extremities, weakness in extremities, dizziness, vertigo, confusion, Slurred speech present or seizure-like activity Psych: Reports: anxiety Endo: Denies: polyuria or polydipsia PFSH ED PFSH: Medical History ASHD (arteriosclerotic heart disease) Fibromyalgia History of high blood pressure Hyperlipidemia Migraines Onychodystrophy Sleep apnea Ventricular arrhythmia Surgical History H/O shoulder surgery H/O tubal ligation H/O: knee surgery Presence of stent in LAD coronary artery Family History Mother CAD (coronary artery disease) Diabetes Stroke Brother CAD (coronary artery disease) Dementia Father Stroke Other Hyperlipidemia Hypertension Psychiatric illness Denies family history of Clotting disorder Chronic kidney disease (CKD) Suicide Anesthesia complication Bleeding disorder Lung disease Cancer Social History Smoking and tobacco status: former smoker Alcohol intake: never Physical Exam Narrative: EXAM NARRATIVE: She is alert makes good eye contact speech is goal-directed. Const: COMMON NORMALS: no acute distress and patient oriented x3 GENERAL APPEARANCE: cooperative, comfortable and well kempt NUTRITIONAL APPEARANCE: overweight HENMT: COMMON NORMALS: normocephalic and atraumatic HEAD & SCALP: normocephalic and atraumatic; no scalp tenderness FACE & SINUS: normal facial exam and face symmetric Eye: COMMON NORMALS: Equal, round and reactive pupils present, EOMs intact bilaterally and conjunctivae normal CONJUNCTIVA: Yes conjunctivae normal PUPIL: Yes Equal, round and reactive pupils present Neck/C-Spine: COMMON NORMALS: full ROM, no lymphadenopathy, no JVD and No carotid bruits Chest: COMMONS NORMALS: normal inspection of the chest and normal palpation of entire chest wall Resp: COMMON NORMALS: normal respiratory effort, No retractions and clear to auscultation bilaterally AUSCULTATION: clear to auscultation bilaterally Cardio: COMMON NORMALS: no JVD, regular rate, regular rhythm, No murmurs present (Cardio) and Peripheral pulses 2+ throughout RATE: regular rate RHYTHM: regular rhythm PERIPHERAL PULSES: Peripheral pulses 2+ throughout GI: COMMON NORMALS: Normal to inspection, nondistended, normoactive bowel sounds present, Soft to palpation and non-tender PALPATION: Yes Soft to palpation : COMMON NORMALS: Yes no CVA tenderness BLADDER/KIDNEY EXAM: Yes no CVA tenderness Back/Pelvis: COMMON NORMALS: no CVA tenderness, thoracic and lumbar spine normal to inspection, no thoracic nor lumbar tenderness, thoraco-lumbar ROM normal and straight leg raise negative bilaterally Extremity: COMMON NORMALS: normal to inspection, full ROM, capillary refill normal, no joint enlargement, no calf tenderness and no pedal edema Neuro: COMMON NORMALS: patient oriented x3, moves all extremities, no focal motor deficits, no sensory deficits noted and gait normal CRANIAL NERVES: Yes CN normal except as noted SPEECH: speech normal MOTOR EXAM: 5/5 motor strength present throughout, Pronator motor function not present and no tremor noted Psych: COMMON NORMALS: mental status grossly normal APPEARANCE: Yes well kempt Skin: COMMON NORMALS: no rashes or lesions noted, no jaundice and no petechiae GENERAL SKIN EXAM: no rashes or lesions noted Course Reevaluation(s): Reevaluation #1: A limited bedside cardiac ultrasound was performed using a phased array probe. Using the subxiphoid view as well as a parasternal long axis and a parasternal short axis views no significant pericardial effusion other than physiologic amounts was noted on the above-noted views. Grossly normal cardiac function noted. Time: 19:57 Reevaluation #2: Patient still complains of feeling funny in her head and also was more short winded when she got up and moved around the emergency department. While I think she is at low risk for intracranial hemorrhage she is on a DOAC. We will go ahead and get a noncontrast CT of her head as well as a repeat CTA to make sure her clot burden has not increased. Time: 21:16 Reevaluation #3: CT scan head does not reveal any evidence of intracranial hemorrhage or other acute process at this time. Her repeat CTA of her chest is very reassuring and that there is appears to be resolution of her previously noted PEs. She does have some evidence of basilar atelectasis. No other findings at this time to suggest an ongoing emergency medical condition such as ACS, pneumonia, PE or other concerning conditions. I discussed all findings in detail with both she and her accompanying family. Time: 22:02 Vital Signs: Vital signs: Vital Signs Temperature 97.6 F 06/07/22 19:19 Pulse Rate 64 06/07/22 21:00 Respiratory Rate 18 06/07/22 21:00 Blood Pressure 159/101 06/07/22 21:00 Pulse Oximetry 95 06/07/22 21:00 Oxygen Delivery Me thod 06/07/22 21:00 MDM - Chest Pain Medical Decision Making This patient with known history of atrial fibrillation as well as recently diagnosed subsegmental pulmonary embolus on the right presented with concerns about elevation of blood pressure,, unusual headache as well as subjective feelings of palpitations with activity today. She states she has been judaism with all her medications to include her DOAC, antiarrhythmics etc. She did take a sumatriptan earlier today. She has a history of chronic migraine and vascular headaches that she uses that therapy to treat. She is recently minute admitted to [facility] for a plan for cardiac ablation however that was aborted with the discovery of a pericardial effusion which required catheter drainage. Post that hospitalization she developed some segmental PEs. Her clinical evaluation reveals her to be nonfocal on her examination. Her EKGs reveal her to be in sinus rhythm. Prolonged monitoring also reveals her to remain in sinus rhythm. Serial troponins were unremarkable. A repeat CTA of her chest was obtained due to concerns about possible increased blood clot burden which was very reassuring as well as her noncontrast CT of her head. She remained clinically stable. No evidence at this time to suggest a ongoing emergency medical condition responsible for her current symptoms. She has a history of chronic anxiety and that may be at play in her presentation today. We discussed all her findings in detail and she was very reassured and relieved by the findings. She is to continue her current medication and follow-up with electrophysiology at [facility] this coming week for consideration of her next plan of care. We also discussed return precautions such as sustained shortness of breath, fevers, chest pain etc. Also advised her to use her incentive spirometer more diligently to help resolve her atelectasis. Medical Records I reviewed the patient's medical records. Lab Data I reviewed the patient's lab results. : 06/07/22 19:44 06/07/22 19:44 Radiology Impressions Chest X-Ray 06/07/22 19:50 IMPRESSION: No acute findings. Chest CTA 06/07/22 21:10 IMPRESSION: 1. Negative for pulmonary embolus. 2. Coronary artery atherosclerotic calcifications. 3. Bilateral dependent atelectasis versus minimal infiltrate. Head CT 06/07/22 21:14 IMPRESSION: No acute intracranial abnormality. Laboratory Results WBC 7.1 10^3/uL (4.0-10.0) 06/07/22 19:44 RBC 4.46 10^6/uL (4.1-5.3) 06/07/22 19:44 Hgb 13.9 g/dL (11.5-15.3) 06/07/22 19:44 Hct 42.5 % (37.0-47.0) 06/07/22 19:44 MCV 95.3 fl (81-99) 06/07/22 19:44 MCH 31.2 pg (28.0-34.0) 06/07/22 19:44 MCHC 32.7 g/dL (30.0-36.0) 06/07/22 19:44 RDW 12.6 % (12.1-15.1) 06/07/22 19:44 Plt Count 328 10^3/cmm (130-400) 06/07/22 19:44 MPV 10.4 fL (7.4-10.4) 06/07/22 19:44 Neut % (Auto) 42.8 % 06/07/22 19:44 Lymph % (Auto) 39.6 % 06/07/22 19:44 [place] % (Auto) 14.6 % 06/07/22 19:44 Eos % (Auto) 1.7 % 06/07/22 19:44 Baso % (Auto) 1.0 % 06/07/22 19:44 Neut # (Auto) 3.06 10^3/uL (1.8-7.7) 06/07/22 19:44 Lymph # (Auto) 2.8 10^3/uL (0.8-4.8) 06/07/22 19:44 [place] # (Auto) 1.0 10^3/uL (0.2-0.9) H 06/07/22 19:44 Eos # (Auto) 0.1 10^3/uL (0.0-0.8) 06/07/22 19:44 Baso # (Auto) 0.1 10^3/uL (0.0-0.1) 06/07/22 19:44 Nucleated RBC % (auto) 0 % 06/07/22 19:44 Nucleated RBCs # 0.0 /100WBC 06/07/22 19:44 PT 13.70 SECONDS (12.1-14.9) 06/07/22 19:44 INR 1.02 (0.8-1.2) 06/07/22 19:44 APTT 28.7 SECONDS (23.9-36.7) 06/07/22 19:44 Sodium 134 mmol/L (136-145) L 06/07/22 19:44 Potassium 4.0 mmol/L (3.5-5.1) 06/07/22 19:44 Chloride 98 mmol/L (98-107) 06/07/22 19:44 Carbon Dioxide 25 mmol/L (22-29) 06/07/22 19:44 Anion Gap 15.0 (5-19) 06/07/22 19:44 BUN 9 mg/dL (8-23) 06/07/22 19:44 Creatinine 0.7 mg/dL (0.5-0.9) 06/07/22 19:44 GFR Calculation 82.7 mL/min (90-130) L 06/07/22 19:44 Glucose 104 mg/dL (65-115) 06/07/22 19:44 Calculated Osmolality 277 mOsm/kg (285-295) L 06/07/22 19:44 Calcium 10.3 mg/dL (8.5-10.5) 06/07/22 19:44 Total Bilirubin 0.2 mg/dL (0.15-1.2) 06/07/22 19:44 AST 20 U/L (0-32) 06/07/22 19:44 ALT 16 U/L (0-33) 06/07/22 19:44 Alkaline Phosphatase 91 U/L (35-105) 06/07/22 19:44 Troponin T Baseline 6 ng/L (0-10) 06/07/22 19:44 Troponin T 120 Minute 6.00 ng/L (0-10) 06/07/22 21:03 Total Protein 8.1 g/dL (6.6-8.7) 06/07/22 19:44 Albumin 4.4 g/dL (3.5-5.2) 06/07/22 19:44 Globulin 3.7 g/dL (1.3-4.6) 06/07/22 19:44 EKG Data EKG 1: I personally reviewed and interpreted this EKG as follows: Computer generated interpretation: EKG reveals a ventricular rate of 69 bpm. Consistent with sinus rhythm. She has a TX interval and QRS duration which are normal. Her QTC is normal as well. She has normal axis. No acute ST-T wave changes noted. Appears to be unchanged from prior tracings within our system. Discharge Plan Discharge Patient Disposition: Home Clinical Impression: History of atrial fibrillation, Headache, Atelectasis, Anxiety Condition: Stable Prescriptions: No Action magnesium oxide 400 mg magnesium tablet 400 mg PO DAILY nitroglycerin 0.4 mg tablet, sublingual 0.4 mg sublingual Q5M PRN (Reason: chest pain) 30 Days Qty: 30 3RF Rx Instructions: until response; do not exceed 3 doses per episode pantoprazole 40 mg tablet,delayed release (DR/EC) 40 mg PO DAILY sumatriptan succinate 50 mg tablet 25 mg PO Q2H PRN (Reason: Migraine Headache) cholecalciferol (vitamin D3) 50 mcg (2,000 unit) capsule 50 mcg PO DAILY diltiazem HCl 30 mg tablet 30 mg PO Q8H PRN (Reason: for arrhythmia) Qty: 60 0RF clopidogrel 75 mg tablet 75 mg PO DAILY Qty: 90 3RF rosuvastatin 5 mg tablet 5 mg PO DAILY Qty: 90 3RF metoprolol succinate 100 mg tablet extended release 24 hr 100 mg PO DAILY Qty: 90 1RF Eliquis 5 mg tablet 5 mg PO BID Qty: 60 5RF alprazolam 0.25 mg tablet 0.25 mg PO TID PRN (Reason: Anxiety) sumatriptan succinate 25 mg tablet 25 mg PO Q2H PRN (Reason: Headache) amlodipine 2.5 mg tablet 2.5 mg PO DAILY Discharge Orders: Discharge ED (Routine); Ordered 06/07/22 Ordered By: Amari Massey Referrals: Nelson Gonzales DO [Primary Care Provider] - Discharge Diet: Usual diet and Low Salt Discharge Activity: Increase activity as tolerated Patient Instructions: Opioid Safety, Pain Management Activity Restrictions/Additional Instructions: Continue your usual medications. Continue your Eliquis until directed by your prescribing physician to stop the medication. Use your incentive spirometer 8 to 10 x 4 separate sessions daily. You may use your antianxiety medication as previously prescribed. If you develop sustained chest pain, fevers, shortness of breath palpitations etc. return to this or the nearest emergency department. 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 Coding Level of Care Code ED Assembly Riveter for Cee Hardy Exam Comprehensive
[2022-06-07 19:57] LABS: Basophils # 0.1 10^3/uL (0.0-0.1); Eosinophils # 0.1 10^3/uL (0.0-0.8); Eosinophils % 1.7 %; Hematocrit 42.5 % (37.0-47.0); Hemoglobin 13.9 g/dL (11.5-15.3); Lymphocytes # 2.8 10^3/uL (0.8-4.8); Lymphocytes % 39.6 %; Mean Corpuscular HGB Conc 32.7 g/dL (30.0-36.0); Mean Corpuscular Hemoglobin 31.2 pg (28.0-34.0); Mean Corpuscular Volume 95.3 fl (81-99); Mean Platelet Volume 10.4 fL (7.4-10.4); Monocytes % 14.6 %; Neutrophils # 3.06 10^3/uL (1.8-7.7); Neutrophils % 42.8 %; Nucleated Red Blood Cells % 0 %; Platelet Count 328 10^3/cmm (130-400); Red Blood Count 4.46 10^6/uL (4.1-5.3); Red Cell Distribution Width 12.6 % (12.1-15.1); White Blood Count 7.1 10^3/uL (4.0-10.0)
[2022-06-07 20:13] LABS: INR 1.02 (0.8-1.2)
[2022-06-07 20:14] LABS: Partial Thromboplastin Time 28.7 SECONDS (23.9-36.7)
[2022-06-07 20:18] LABS: Alanine Aminotransferase 16 U/L (0-33); Albumin Level 4.4 g/dL (3.5-5.2); Alkaline Phosphatase 91 U/L (35-105); Aspartate Amino Transferase 20 U/L (0-32); Blood Urea Nitrogen 9 mg/dL (8-23); Calcium 10.3 mg/dL (8.5-10.5); Carbon Dioxide 25 mmol/L (22-29); Chloride 98 mmol/L (98-107); Globulin 3.7 g/dL (1.3-4.6); Glomerular Filtration Rate 82.7 mL/min (90-130); Glucose 104 mg/dL (65-115); Osmolality Calculated 277 mOsm/kg (285-295); Sodium 134 mmol/L (136-145); Total Bilirubin 0.2 mg/dL (0.15-1.2); Total Protein 8.1 g/dL (6.6-8.7)
[2022-06-07 20:20] LABS: Troponin(5th) Baseline 6 ng/L (0-10)
[2022-06-07 20:39] VITALS: BP 137/83; PULSE 90; RESP 22; O2SAT 97
[2022-06-07 21:00] VITALS: BP 159/101; PULSE 64; RESP 18; O2SAT 95
--- NOTE | 2022-06-07 21:10 | CTR_ITS ---
PROCEDURE INFORMATION: Exam: CTA Chest With Contrast Exam date and time: 06/07/2022 9:23 PM Age: 71 years old Clinical indication: Shortness of breath; Prior surgery; Surgery type: Stent; Additional info: Known sub-segmental pe with more symptoms TECHNIQUE: Imaging protocol: Computed tomographic angiography of the chest with contrast. 3D rendering (Not supervised by radiologist): MIP and/or 3D reconstructed images were created by the technologist. Radiation optimization: All CT scans at this facility use at least one of these dose optimization techniques: automated exposure control; mA and/or kV adjustment per patient size (includes targeted exams where dose is matched to clinical indication); or iterative reconstruction. Contrast material: OMNIPAQUE 350; Contrast volume: 63 ml; Contrast route: INTRAVENOUS (IV); COMPARISON: CT angio chest PE protcl [id number] 05/24/2022 3:02 PM RADIATION DOSE METRICS: Total DLP (mGy-cm): 407.58 FINDINGS: Pulmonary arteries: Normal. No pulmonary emboli. Aorta: Unremarkable. No aortic aneurysm. No aortic dissection. Lungs: Bilateral dependent atelectasis versus minimal infiltrate. Pleural spaces: Unremarkable. No pneumothorax. No pleural effusion. Heart: Coronary artery atherosclerotic calcifications. Lymph nodes: Unremarkable. No enlarged lymph nodes. Bones/joints: Unremarkable. No acute fracture. Soft tissues: Unremarkable. CT/CT angio chest PE protcl [id number] IMPRESSION: 1. Negative for pulmonary embolus. 2. Coronary artery atherosclerotic calcifications. 3. Bilateral dependent atelectasis versus minimal infiltrate.
--- NOTE | 2022-06-07 21:14 | CTR_ITS ---
PROCEDURE INFORMATION: Exam: CT Head Without Contrast Exam date and time: 06/07/2022 9:20 PM Age: 71 years old Clinical indication: Pain; Headache; Additional info: DIMAS on doac, do head then cta TECHNIQUE: Imaging protocol: Computed tomography of the head without contrast. Radiation optimization: All CT scans at this facility use at least one of these dose optimization techniques: automated exposure control; mA and/or kV adjustment per patient size (includes targeted exams where dose is matched to clinical indication); or iterative reconstruction. COMPARISON: CT head wo/w con [id number] 03/28/2022 11:46 AM RADIATION DOSE METRICS: Total DLP (mGy-cm): 1059.48 FINDINGS: Brain: Normal. No hemorrhage. Unremarkable white matter. No mass effect. Cerebral ventricles: No ventriculomegaly. Paranasal sinuses: Visualized sinuses are unremarkable. No fluid levels. Mastoid air cells: Visualized mastoid air cells are well aerated. Bones/joints: Unremarkable. No acute fracture. Soft tissues: Unremarkable. CT/CT head wo con* [id number] IMPRESSION: No acute intracranial abnormality.
--- NOTE | 2022-06-07 21:17 | PC.NURSE ---
ELEVATED BP AMBULATED PT TO RESTROOM AND BACK. PT C/O SOB, RETURNED HEADACHE DESCRIBED SQUEEZING AND DIZZINESS. Bp prior to ambulation 129/84 pulse 71, post 159/101 pulse 64. sats remained mid 95s. Dr Massey notified of change and has ordered ct scan due to dx of small PE 2 weeks ago.
[2022-06-07] MEDS: iohexol 350 mg/mL 500 mL Btl (per mL) IV (21:26)
[2022-06-07 22:09] LABS: Troponin 5 2HR Delta 0 ABS# (0-10)
[2022-06-07 22:15] VITALS: BP 122/76; PULSE 70; RESP 16; O2SAT 96
[2022-06-07 22:41] VITALS: BP 122/76; PULSE 70; RESP 16; O2SAT 96
== END 2022-06-07 22:36 | disposition home or self-care (01) ==
PROVIDERS: Emergency Provider Emergency Medicine; PCP Electrodiagnostic Medicine
DX: R51.9 Headache, unspecified (principal); F41.9 Anxiety disorder, unspecified; I48.91 Unspecified atrial fibrillation; J98.11 Atelectasis; Z79.01 Long term (current) use of anticoagulants; Z79.02 Long term (current) use of antithrombotics/antiplatelets; Z87.891 Personal history of nicotine dependence; E78.5 Hyperlipidemia, unspecified
CPT/HCPCS: 70450; 71045; 71275; 80053; 84484; 85025; 85610; 85730; 93005; 99285; Q9967

== ENCOUNTER 2022-06-26 14:22 | Outpatient (RCR) | payer SELFPAY | END 2022-07-26 23:59 | disposition home or self-care (01) | LOC: CR 14:22 | PROVIDERS: PCP Electrodiagnostic Medicine; Referring Provider Internal Medicine Cardiovascular Disease; Visit Provider Internal Medicine | DX: Z95.5 Presence of coronary angioplasty implant and graft (principal) ==

== ENCOUNTER 2022-07-27 06:00 | Outpatient (RCR) | payer MEDICARE, SELFPAY | END 2022-08-26 23:59 | disposition home or self-care (01) | LOC: SPT 06:00 | PROVIDERS: PCP Electrodiagnostic Medicine; Visit Provider Electrodiagnostic Medicine | DX: M75.102 Unspecified rotator cuff tear or rupture of left shoulder, not specified as traumatic (principal) | CPT/HCPCS: 97110; 97161 ==

== ENCOUNTER 2022-07-30 13:01 | Outpatient (RCR) | payer SELFPAY | END 2022-08-26 23:59 | disposition home or self-care (01) | LOC: CR 13:01 | PROVIDERS: PCP Electrodiagnostic Medicine; Referring Provider Internal Medicine Cardiovascular Disease; Visit Provider Internal Medicine | DX: Z95.5 Presence of coronary angioplasty implant and graft (principal) ==

== ENCOUNTER 2022-08-08 11:41 | Emergency (ER) | payer MEDICARE, SELFPAY ==
[2022-08-08 11:52] VITALS: BP 162/91; PULSE 83; RESP 18; TEMP 36.6; O2SAT 99
--- NOTE | 2022-08-08 12:28 | ECG_ITS ---
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 Measurements Intervals Edgar Rate: 75 P: 15 LA: 163 QRS: -3 QRSD: 85 T: 3 QT: 354 QTc: 397 Interpretive Statements SINUS RHYTHM WITH OCCASIONAL VENTRICULAR PREMATURE COMPLEXES WITH OCCASIONAL SUPRAVENTRICULAR PREMATURE COMPLEXES Compared to ECG 06/07/2022 19:34:59 Ventricular premature complex(es) now present Left ventricular hypertrophy no longer present Myocardial infarct finding no longer present Electronically Signed On 08-08-2022 16:36:47 MANAGER OF OPERATIONS by Mariah Sibley M.D. [id number]
--- NOTE | 2022-08-08 12:28 | XRR_ITS ---
PROCEDURE INFORMATION: Exam: XR Chest Exam date and time: 08/08/2022 12:30 PM Age: 72 years old Clinical indication: Cough and dyspnea; Prior surgery; Surgery type: Afib, dizzy, fast heart rate, patients feel like passing out; Additional info: Dyspnea/cough TECHNIQUE: Imaging protocol: Radiologic exam of the chest. Views: 1 view. COMPARISON: CR XR chest 1V portable [id number] 06/07/2022 8:59 PM FINDINGS: Lungs: Questionable fine interstitial opacities along the lung periphery more apparent on the right possibly secondary to early stage idiopathic interstitial lung disease that could be better assessed on CT examination.. No consolidation. Pleural spaces: Unremarkable. No pleural effusion. No pneumothorax. Heart/Mediastinum: Unremarkable. No cardiomegaly. Bones/joints: Unremarkable for age. XR/XR chest 1V portable [id number] IMPRESSION: Findings inconclusive for mild interstitial lung disease as discussed above.
[2022-08-08 12:55] VITALS: BP 101/80; PULSE 71; O2SAT 98
[2022-08-08 13:06] VITALS: PULSE 65; O2SAT 99
[2022-08-08 13:16] LABS: Basophils # 0.1 10^3/uL (0.0-0.1); Basophils % 0.8 %; Eosinophils % 0.6 %; Hematocrit 44.5 % (37.0-47.0); Hemoglobin 14.4 g/dL (11.5-15.3); Lymphocytes # 1.4 10^3/uL (0.8-4.8); Mean Corpuscular HGB Conc 32.4 g/dL (30.0-36.0); Mean Corpuscular Hemoglobin 30.6 pg (28.0-34.0); Mean Corpuscular Volume 94.7 fl (81-99); Mean Platelet Volume 10.1 fL (7.4-10.4); Monocytes # 0.7 10^3/uL (0.2-0.9); Monocytes % 11.2 %; Neutrophils # 3.99 10^3/uL (1.8-7.7); Neutrophils % 64.1 %; Nucleated Red Blood Cells % 0 %; Platelet Count 297 10^3/cmm (130-400); Red Cell Distribution Width 12.1 % (12.1-15.1); White Blood Count 6.2 10^3/uL (4.0-10.0)
--- NOTE | 2022-08-08 13:24 | W.ED.DIZZY ---
HPI - Dizziness General: Chief Complaint: Dizziness Stated Complaint: Dizziness, fast heart rate, feel like passing out Time Seen by Provider: 08/08/22 12:27 Source: patient Mode of arrival: ambulatory History of Present Illness: HPI Narrative: 22-year-old female presents emergency room complaint dizziness rapid heart rate earlier today. She has a known history of atrial fibrillation she is on metoprolol fortunes not missed any doses recently she is also on Eliquis and diltiazem. She was set up to get an ablation evidently there is a problem with some heart failure so it was put off its been rescheduled. Today she had sensation of palpitations and rapid heart rate. These resolved spontaneously she took a Xanax that did not seem to help but it later eventually did. She has had no recurrent well though she had the sensation of rapid heart rate she felt dizzy and lightheaded. All of her symptoms resolved since that time. MD elicited complaint: dizziness and lightheadedness Onset (ago): hour(s) Timing: gradual onset Severity: moderate Exacerbating factors: nothing Relieving factors: nothing Associated symptoms: Reports palpitations; Denies change in hearing, chest pain, chills, cough, diaphoresis, ear discharge, ear pressure, fevers/chills, headache(s), malaise, nausea, nasal congestion, rash, short of breath, syncope, tinnitus, vomiting or weakness Associated neuro symptoms: Deny confusion, difficulty speaking, dysphagia, diplopia, extremity weakness, facial numbness, facial weakness, gait changes, numbness in extremities or visual changes Review of Systems Const: Denies: fever(s), chills, fatigue, malaise or diaphoresis ENMT: Denies: ear discharge, change in hearing, tinnitus or nasal congestion Card: Reports: palpitations; Denies: chest pain or syncope Resp: Denies: dyspnea, productive cough or non-productive cough GI: Denies: abdominal pain, nausea, vomiting or dysphagia : Denies: flank pain, difficulty voiding, dysuria, urinary frequency or urinary urgency Skin/Breast: Denies: rash or pruritus Neuro: Denies: headache(s), numbness in extremities or confusion PFSH ED PFSH: Medical History ASHD (arteriosclerotic heart disease) Fibromyalgia History of high blood pressure Hyperlipidemia Migraines Onychodystrophy Sleep apnea Ventricular arrhythmia Surgical History H/O shoulder surgery H/O tubal ligation H/O: knee surgery Presence of stent in LAD coronary artery Family History Mother CAD (coronary artery disease) Diabetes Stroke Brother CAD (coronary artery disease) Dementia Father Stroke Other Hyperlipidemia Hypertension Psychiatric illness Denies family history of Clotting disorder Chronic kidney disease (CKD) Suicide Anesthesia complication Bleeding disorder Lung disease Cancer Social History Smoking and tobacco status: former smoker Alcohol intake: never Physical Exam Const: COMMON NORMALS: no acute distress GENERAL APPEARANCE: cooperative and comfortable ORIENTATION/CONSCIOUSNESS: Yes awake, Yes oriented to person, Yes oriented to place and Yes oriented to time HENMT: COMMON NORMALS: normocephalic, atraumatic and hearing grossly normal bilaterally HEAD & SCALP: normocephalic and atraumatic Resp: COMMON NORMALS: normal respiratory effort, No retractions, No use of accessory muscles and clear to auscultation bilaterally AUSCULTATION: clear to auscultation bilaterally Cardio: COMMON NORMALS: regular rate, regular rhythm and No murmurs present (Cardio) RATE: regular rate RHYTHM: regular rhythm GI: COMMON NORMALS: Soft to palpation and No hepatosplenomegaly present AUSCULTATION: Yes normoactive bowel sounds PALPATION: Yes Soft to palpation, No Tenderness to palpation present (GI), No Guarding due to palpation present (GI) and Yes No hepatosplenomegaly present Extremity: COMMON NORMALS: normal to inspection, capillary refill normal, no clubbing, cyanosis or edema, no calf tenderness and no pedal edema Neuro: SENSORIUM/ORIENTATION: Yes oriented to person, Yes oriented to place and Yes oriented to time Skin: COMMON NORMALS: no rashes or lesions noted GENERAL SKIN EXAM: no rashes or lesions noted Course Vital Signs: Vital signs: Vital Signs Temperature 97.8 F 08/08/22 11:52 Pulse Rate 76 08/08/22 13:56 Respiratory Rate 16 08/08/22 13:56 Blood Pressure 124/77 08/08/22 13:56 Pulse Oximetry 97 08/08/22 13:56 Oxygen Delivery Me thod 08/08/22 13:30 MDM - Dizziness Medical Decision Making EKG shows normal sinus rhythm and occasional PVCs. Patient has intermittent atrial fibrillation suspect she was having breakthrough A. fib. It is resolved now she is on several medications for it from her history and her medication list I suspect that she has had difficulty maintaining control at times. They are trying to get her set up for an ablation per her report. She said at one time she was on amiodarone but that was stopped due to complications currently she is on diltiazem and metoprolol. She is completely asymptomatic this time we will set her up for an outpatient event monitor and follow-up with Dr. Jett Medical Records I reviewed the patient's medical records. Lab Data I reviewed the patient's lab results. 08/08/22 13:09 08/08/22 13:09 Radiology Impressions Chest X-Ray 08/08/22 12:28 IMPRESSION: Findings inconclusive for mild interstitial lung disease as discussed above. Laboratory Results WBC 6.2 10^3/uL (4.0-10.0) 08/08/22 13:09 RBC 4.70 10^6/uL (4.1-5.3) 08/08/22 13:09 Hgb 14.4 g/dL (11.5-15.3) 08/08/22 13:09 Hct 44.5 % (37.0-47.0) 08/08/22 13:09 MCV 94.7 fl (81-99) 08/08/22 13:09 MCH 30.6 pg (28.0-34.0) 08/08/22 13:09 MCHC 32.4 g/dL (30.0-36.0) 08/08/22 13:09 RDW 12.1 % (12.1-15.1) 08/08/22 13:09 Plt Count 297 10^3/cmm (130-400) 08/08/22 13:09 MPV 10.1 fL (7.4-10.4) 08/08/22 13:09 Neut % (Auto) 64.1 % 08/08/22 13:09 Lymph % (Auto) 23.0 % 08/08/22 13:09 [place] % (Auto) 11.2 % 08/08/22 13:09 Eos % (Auto) 0.6 % 08/08/22 13:09 Baso % (Auto) 0.8 % 08/08/22 13:09 Neut # (Auto) 3.99 10^3/uL (1.8-7.7) 08/08/22 13:09 Lymph # (Auto) 1.4 10^3/uL (0.8-4.8) 08/08/22 13:09 [place] # (Auto) 0.7 10^3/uL (0.2-0.9) 08/08/22 13:09 Eos # (Auto) 0.0 10^3/uL (0.0-0.8) 08/08/22 13:09 Baso # (Auto) 0.1 10^3/uL (0.0-0.1) 08/08/22 13:09 Nucleated RBC % (auto) 0 % 08/08/22 13:09 Nucleated RBCs # 0.0 /100WBC 08/08/22 13:09 Sodium 132 mmol/L (136-145) L 08/08/22 13:09 Potassium 4.1 mmol/L (3.5-5.1) 08/08/22 13:09 Chloride 99 mmol/L (98-107) 08/08/22 13:09 Carbon Dioxide 23 mmol/L (22-29) 08/08/22 13:09 Anion Gap 14.1 (5-19) 08/08/22 13:09 BUN 10 mg/dL (8-23) 08/08/22 13:09 Creatinine 0.7 mg/dL (0.5-0.9) 08/08/22 13:09 GFR Calculation Not Reportable 08/08/22 13:09 Glucose 91 mg/dL (65-115) 08/08/22 13:09 Calculated Osmolality 273 mOsm/kg (285-295) L 08/08/22 13:09 Calcium 9.6 mg/dL (8.5-10.5) 08/08/22 13:09 Total Bilirubin 0.3 mg/dL (0.15-1.2) 08/08/22 13:09 AST 19 U/L (0-32) 08/08/22 13:09 ALT 16 U/L (0-33) 08/08/22 13:09 Alkaline Phosphatase 86 U/L (35-105) 08/08/22 13:09 Total Protein 7.8 g/dL (6.6-8.7) 08/08/22 13:09 Albumin 4.5 g/dL (3.5-5.2) 08/08/22 13:09 Globulin 3.3 g/dL (1.3-4.6) 08/08/22 13:09 Discharge Plan Discharge Patient Disposition: Home Clinical Impression: Intermittent atrial fibrillation Condition: Stable Prescriptions: No Action magnesium oxide 400 mg magnesium tablet 400 mg PO DAILY nitroglycerin 0.4 mg tablet, sublingual 0.4 mg sublingual Q5M PRN (Reason: chest pain) 30 Days Qty: 30 3RF Rx Instructions: until response; do not exceed 3 doses per episode pantoprazole 40 mg tablet,delayed release (DR/EC) 40 mg PO DAILY sumatriptan succinate 50 mg tablet 25 mg PO Q2H PRN (Reason: Migraine Headache) cholecalciferol (vitamin D3) 50 mcg (2,000 unit) capsule 50 mcg PO DAILY diltiazem HCl 30 mg tablet 30 mg PO Q8H PRN (Reason: for arrhythmia) Qty: 60 0RF rosuvastatin 5 mg tablet 5 mg PO DAILY Qty: 90 3RF Eliquis 5 mg tablet 5 mg PO BID Qty: 60 5RF alprazolam 0.25 mg tablet 0.25 mg PO TID PRN (Reason: Anxiety) metoprolol succinate 100 mg tablet extended release 24 hr 100 mg PO DAILY Qty: 90 3RF amlodipine 2.5 mg tablet 2.5 mg PO DAILY Qty: 90 3RF clopidogrel 75 mg tablet 75 mg PO DAILY Qty: 90 3RF sumatriptan succinate 25 mg tablet 25 mg PO Q2H PRN (Reason: Headache) Discharge Orders: Discharge ED (Routine); Ordered 08/08/22 Ordered By: Boby Vital Referrals: Nelson Gonzales DO [Primary Care Provider] - Discharge Diet: Usual diet Discharge Activity: Increase activity as tolerated Patient Instructions: Opioid Safety, Pain Management Activity Restrictions/Additional Instructions: You were seen today for episodes of intermittent dizziness. Suspect based on your history that you were having intermittent atrial fibrillation precipitating your symptoms. Continue your current medications. Case management make arrangements for you to have a event monitor. Follow-up with your straight pin making machine operator. Coding Level of Care Code ED Aircraft Rigging And Controls Mechanic for Chg Fwd Exam Detailed
[2022-08-08 13:30] VITALS: BP 124/77; PULSE 74; O2SAT 97
[2022-08-08 13:39] LABS: Alanine Aminotransferase 16 U/L (0-33); Albumin Level 4.5 g/dL (3.5-5.2); Alkaline Phosphatase 86 U/L (35-105); Anion Gap 14.1 (5-19); Aspartate Amino Transferase 19 U/L (0-32); Blood Urea Nitrogen 10 mg/dL (8-23); Calcium 9.6 mg/dL (8.5-10.5); Carbon Dioxide 23 mmol/L (22-29); Chloride 99 mmol/L (98-107); Globulin 3.3 g/dL (1.3-4.6); Glucose 91 mg/dL (65-115); Osmolality Calculated 273 mOsm/kg (285-295); Potassium 4.1 mmol/L (3.5-5.1); Sodium 132 mmol/L (136-145); Total Bilirubin 0.3 mg/dL (0.15-1.2); Total Protein 7.8 g/dL (6.6-8.7)
[2022-08-08 13:56] VITALS: BP 124/77; PULSE 76; RESP 16; O2SAT 97
== END 2022-08-08 13:57 | disposition home or self-care (01) ==
PROVIDERS: Emergency Provider Family Medicine; PCP Electrodiagnostic Medicine
DX: I48.91 Unspecified atrial fibrillation (principal); Z79.01 Long term (current) use of anticoagulants; Z79.02 Long term (current) use of antithrombotics/antiplatelets; Z87.891 Personal history of nicotine dependence; E78.5 Hyperlipidemia, unspecified
CPT/HCPCS: 36415; 71045; 80053; 85025; 93005; 99285

== ENCOUNTER 2022-08-27 15:21 | Outpatient (RCR) | payer SELFPAY | END 2022-09-23 23:59 | disposition home or self-care (01) | LOC: CR 15:21 | PROVIDERS: PCP Electrodiagnostic Medicine; Referring Provider Internal Medicine Cardiovascular Disease; Visit Provider Internal Medicine | DX: Z95.5 Presence of coronary angioplasty implant and graft (principal) ==

== ENCOUNTER 2022-09-24 15:06 | Outpatient (RCR) | payer SELFPAY | END 2022-10-24 23:59 | disposition home or self-care (01) | LOC: CR 15:06 | PROVIDERS: PCP Electrodiagnostic Medicine; Referring Provider Internal Medicine Cardiovascular Disease; Visit Provider Internal Medicine | DX: Z95.5 Presence of coronary angioplasty implant and graft (principal) ==

== ENCOUNTER 2022-10-27 13:44 | Outpatient (RCR) | payer SELFPAY | END 2022-11-23 23:59 | disposition home or self-care (01) | LOC: CR 13:44 | PROVIDERS: PCP Electrodiagnostic Medicine; Referring Provider Internal Medicine Cardiovascular Disease; Visit Provider Internal Medicine | DX: Z95.5 Presence of coronary angioplasty implant and graft (principal) ==

== ENCOUNTER → 2022-11-04 15:20 | Outpatient (BNVA) | payer MEDICARE, SELFPAY | PROVIDERS: PCP Electrodiagnostic Medicine; Visit Provider Internal Medicine Cardiovascular Disease | DX: I48.91 Unspecified atrial fibrillation (principal); I10 Essential (primary) hypertension; I25.10 Atherosclerotic heart disease of native coronary artery without angina pectoris; E78.2 Mixed hyperlipidemia; G47.33 Obstructive sleep apnea (adult) (pediatric); R53.83 Other fatigue; Z87.891 Personal history of nicotine dependence; Z79.01 Long term (current) use of anticoagulants | CPT/HCPCS: 36415; 80048; 83880; 99214 ==

== ENCOUNTER 2022-11-21 06:45 | Outpatient (CLI) | payer MEDICARE, SELFPAY ==
--- NOTE | 2022-11-21 07:00 | USCV_ITS ---
Christy Oquendo Age: 72 Gender: F : 1950 Exam Date: 11/21/2022 07:13 Ordering Phys: Mike Jett MD ([email or web address]) Technologist: Exam Location: [facility] [place] Indication: ? pe BP: 130 / 72 HR: 74 Rhythm: Sinus Technical Quality: Adequate MEASUREMENTS (Male / Female) Normal Values 2D ECHO LV Diastolic Diameter PLAX 3.8 cm 4.2 - 5.9 / 3.9 - 5.3 cm LV Systolic Diameter PLAX 2.4 cm IVS Diastolic Thickness 1.1 cm 0.6 - 1.0 / 0.6 - 0.9 cm IVS Systolic Thickness 1.4 cm LVPW Diastolic Thickness 0.9 cm 0.6 - 1.0 / 0.6 - 0.9 cm LVPW Systolic Thickness 1.8 cm LVOT Diameter 2.0 cm LV Ejection Fraction 2D Teich 68.4 % LV Ejection Fraction MOD 2C 54.7 % LV Ejection Fraction 2C AL 54.5 % LA Diameter 4.0 cm M-MODE Aortic Annulus Diameter 2.9 cm LA Ao Ratio MM 1.5 MV E Point Septal Separation 0.3 cm FINDINGS Left Ventricle Normal left ventricular size and systolic function, EF 65 %. No regional wall motion abnormalities. Mild left ventricular hypertrophy. Right Ventricle The right ventricle is normal in size and function. Right Atrium The right atrium is normal in size. Left Atrium Moderately increased left atrial size. A large atrial septal aneurysm measuring 3.01 x 1.65 cm size, bulging to the right Mitral Valve Mild mitral valve regurgitation. Aortic Valve Thickened aortic valve. Tricuspid Valve No gross abnormalities noted Pulmonic Valve No gross abnormalities noted Pericardium Normal pericardium without effusion. Aorta Normal ascending aorta dimension. IVC Normal inferior vena cava. CONCLUSIONS Normal left ventricular size and systolic function, EF 65 %. No regional wall motion abnormalities. Mild left-ventricular hypertrophy. Moderately increased left atrial size. A large atrial septal aneurysm measuring 3.01 x 1.65 cm size, bulging to the right. Mild mitral valve regurgitation. Thickened aortic valve. There is no pericardial effusion. There are no intracardiac masses. No similar previous studies are available for comparison Compared to the study from 02/11/2021, there may not be a significant change Dr Mike Jett MD FACC (Electronically Signed) Final Date: 28 Nov 2022 00:43 S
== END 2022-11-21 06:46 | disposition home or self-care (01) ==
LOC: RAD 06:47
PROVIDERS: PCP Electrodiagnostic Medicine; Visit Provider Internal Medicine Cardiovascular Disease
DX: I42.9 Cardiomyopathy, unspecified (principal); I51.7 Cardiomegaly; I34.0 Nonrheumatic mitral (valve) insufficiency
CPT/HCPCS: 93308

== ENCOUNTER 2022-11-24 15:45 | Outpatient (RCR) | payer SELFPAY | END 2022-12-24 23:59 | disposition home or self-care (01) | LOC: CR 15:45 | PROVIDERS: PCP Electrodiagnostic Medicine; Referring Provider Internal Medicine Cardiovascular Disease; Visit Provider Internal Medicine | DX: Z95.5 Presence of coronary angioplasty implant and graft (principal) ==

== ENCOUNTER 2022-12-26 13:49 | Outpatient (RCR) | payer SELFPAY | END 2023-01-23 23:59 | disposition home or self-care (01) | LOC: CR 13:49 | PROVIDERS: PCP Electrodiagnostic Medicine; Referring Provider Internal Medicine Cardiovascular Disease; Visit Provider Internal Medicine | DX: Z95.5 Presence of coronary angioplasty implant and graft (principal) ==

== ENCOUNTER 2023-01-29 13:37 | Outpatient (RCR) | payer SELFPAY | END 2023-02-23 23:59 | disposition home or self-care (01) | LOC: CR 13:37 | PROVIDERS: PCP Electrodiagnostic Medicine; Referring Provider Internal Medicine Cardiovascular Disease; Visit Provider Internal Medicine | DX: Z95.5 Presence of coronary angioplasty implant and graft (principal) ==

== ENCOUNTER 2023-02-24 14:38 | Outpatient (RCR) | payer SELFPAY | END 2023-03-26 23:59 | disposition home or self-care (01) | LOC: CR 14:38 | PROVIDERS: PCP Electrodiagnostic Medicine; Referring Provider Internal Medicine Cardiovascular Disease; Visit Provider Internal Medicine | DX: Z95.5 Presence of coronary angioplasty implant and graft (principal) ==

== ENCOUNTER 2023-03-27 11:26 | Outpatient (RCR) | payer SELFPAY | END 2023-04-25 23:59 | disposition home or self-care (01) | LOC: CR 11:26 | PROVIDERS: PCP Electrodiagnostic Medicine; Referring Provider Internal Medicine Cardiovascular Disease; Visit Provider Internal Medicine | DX: Z95.5 Presence of coronary angioplasty implant and graft (principal) ==

== ENCOUNTER 2023-04-24 13:20 | Outpatient (CLI) | payer MEDICARE, SELFPAY ==
--- NOTE | 2023-04-24 13:43 | MM_ITS ---
WS: [id number] BILATERAL 3D TOMOSYNTHESIS DIGITAL SCREENING MAMMOGRAPHY WITH CAD CLINICAL INFORMATION: SCREENING HISTORY: Screening mammogram. No current complaints. COMPARISON: 2021 TECHNIQUE: Bilateral CC and MLO views. FINDINGS: Scattered fibroglandular densities bilaterally. No suspicious focal mass, asymmetry, calcifications, or architectural distortion. No evidence of malignancy. Incidental punctate calcifications. IMPRESSION: MM/[place] [id number] BI-RADS: 2-Benign FOLLOW UP: 1 Year Follow-up Recommend return to annual screening mammography.
== END 2023-04-24 13:21 | disposition home or self-care (01) ==
PROVIDERS: PCP Electrodiagnostic Medicine; Visit Provider Electrodiagnostic Medicine
DX: Z12.31 Encounter for screening mammogram for malignant neoplasm of breast (principal)
CPT/HCPCS: 77063; 77067

== ENCOUNTER 2023-04-28 08:52 | Outpatient (RCR) | payer SELFPAY | END 2023-05-26 23:59 | disposition home or self-care (01) | LOC: CR 08:52 | PROVIDERS: PCP Electrodiagnostic Medicine; Referring Provider Internal Medicine Cardiovascular Disease; Visit Provider Internal Medicine | DX: Z95.5 Presence of coronary angioplasty implant and graft (principal) ==

== ENCOUNTER → 2023-05-05 07:28 | Outpatient (BNVA) | payer MEDICARE, SELFPAY | PROVIDERS: PCP Electrodiagnostic Medicine; Visit Provider Podiatrist Foot & Ankle Surgery | DX: G58.9 Mononeuropathy, unspecified; M79.672 Pain in left foot | CPT/HCPCS: 73630; 99213 ==

== ENCOUNTER 2023-05-27 11:56 | Outpatient (RCR) | payer SELFPAY | END 2023-06-25 23:59 | disposition home or self-care (01) | LOC: CR 11:56 | PROVIDERS: PCP Electrodiagnostic Medicine; Referring Provider Internal Medicine Cardiovascular Disease; Visit Provider Internal Medicine | DX: Z95.5 Presence of coronary angioplasty implant and graft (principal) ==

== ENCOUNTER 2023-06-30 12:09 | Outpatient (RCR) | payer SELFPAY | END 2023-07-26 23:59 | disposition home or self-care (01) | LOC: CR 12:09 | PROVIDERS: PCP Electrodiagnostic Medicine; Referring Provider Internal Medicine Cardiovascular Disease; Visit Provider Internal Medicine | DX: Z95.5 Presence of coronary angioplasty implant and graft (principal) ==

== ENCOUNTER 2023-07-28 10:29 | Outpatient (RCR) | payer SELFPAY | END 2023-08-26 23:59 | disposition home or self-care (01) | LOC: CR 10:29 | PROVIDERS: PCP Electrodiagnostic Medicine; Referring Provider Internal Medicine Cardiovascular Disease; Visit Provider Internal Medicine | DX: Z95.5 Presence of coronary angioplasty implant and graft (principal) ==

== ENCOUNTER 2023-08-06 13:08 | Outpatient (CLI) | payer MEDICARE, SELFPAY ==
--- NOTE | 2023-08-06 13:15 | XR_ITS ---
WS: [id number] SCREENING DEXA SCAN writewith CLINICAL INFORMATION: OSTEOPOROSIS COMPARISON: 2020 FINDINGS: The L1-L4 bone mineral density measures 0.953 g/cm2. This corresponds to a T score score of -1.9 and Z score of -0.6. Left femoral neck bone mineral density measures 0.792 g/cm2. This corresponds to a T score of -1.7 an d Z score of -0.4. Right femoral neck bone mineral density measures 0.820 g/cm2. This corresponds to a T score -1.5of an d Z score of -0.2. Mean femoral neck bone mineral density measures 0.806 g/cm2. This corresponds to a T score of -1.6 an d Z score of -0.3. IMPRESSION: Osteopenia lumbar spine. Osteopenia femoral necks. Patient's FRAX calculated 10 year probability for major osteoporotic fracture is 15.8% and osteoporot ic hip fracture is 3.8%. Bone mineral density lumbar spine decreased -0.8%. Bone mineral density femoral necks decreased -2.5%
== END 2023-08-06 13:09 | disposition home or self-care (01) ==
LOC: RAD 13:09
PROVIDERS: PCP Electrodiagnostic Medicine; Visit Provider Electrodiagnostic Medicine
DX: M81.0 Age-related osteoporosis without current pathological fracture (principal); M85.88 Other specified disorders of bone density and structure, other site; M85.852 Other specified disorders of bone density and structure, left thigh; M85.851 Other specified disorders of bone density and structure, right thigh
CPT/HCPCS: 77080

== ENCOUNTER 2023-08-13 12:34 | Emergency (ER) | payer MEDICARE, SELFPAY ==
[2023-08-13 12:37] VITALS: BP 167/93; PULSE 95; RESP 18; TEMP 36.2; O2SAT 99; BMI 31.6
--- NOTE | 2023-08-13 12:41 | ECG_ITS ---
[facility] Test Date: 2023-08-13 Pat Name: Christy Oquendo Department: Room: Gender: Female Game Developer: : 1950 Requested By: Brooks Kelly Order Number: [id number] Kem MD: Larry Sanchez M.D. Measurements Intervals [place] Rate: 83 P: 78 AL: 156 QRS: -5 QRSD: 90 T: 33 QT: 361 QTc: 425 Interpretive Statements SINUS RHYTHM MINIMAL VOLTAGE CRITERIA FOR LVH, CONSIDER NORMAL VARIANT [MEETS CRITERIA IN ONE OF: R(aVL), S(V1), R(V5), R(V5/V6)+S(V1)] POSSIBLE ANTERIOR MYOCARDIAL INFARCTION , PROBABLY OLD [30 ms Q WAVE IN V3/V4, OR R < 0.2 mV IN V4] Compared to ECG 08/08/2022 13:15:21 Myocardial infarct finding now present Ventricular premature complex(es) no longer present Electronically Signed On 08-13-2023 17:48:54 BIT GATHERER by Larry Sanchez M.D. [id number]
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
--- NOTE | 2023-08-13 15:57 | XRR_ITS ---
PROCEDURE INFORMATION: Exam: XR Chest Exam date and time: 08/13/2023 4:18 PM Age: 73 years old Clinical indication: Cough and dyspnea; Prior surgery; Surgery date: 6+ months; Patient HX: Dyspnea; Cough; Tachycardia; Past smoker; HX cardiac stent TECHNIQUE: Imaging protocol: Radiologic exam of the chest. Views: 1 view. COMPARISON: CR XR chest 1V portable [id number] 08/08/2022 12:30 PM FINDINGS: Lungs: Unremarkable. No consolidation. Pleural spaces: Unremarkable. No pleural effusion. No pneumothorax. Heart/Mediastinum: Unremarkable. No cardiomegaly. Bones/joints: Unremarkable. XR/XR chest 1V portable [id number] IMPRESSION: No acute findings.
[2023-08-13 16:11] VITALS: BP 155/100; PULSE 105; RESP 18; O2SAT 94
[2023-08-13 16:30] VITALS: BP 125/96; PULSE 105; O2SAT 92
[2023-08-13 16:40] LABS: Basophils # 0.1 10^3/uL (0.0-0.1); Basophils % 0.7 %; Eosinophils % 0.2 %; Hematocrit 43.4 % (36-47); Lymphocytes # 1.7 10^3/uL (0.8-4.8); Lymphocytes % 20.6 %; Mean Corpuscular HGB Conc 33.2 g/dL (30-55); Mean Corpuscular Hemoglobin 31.1 pg (27-33); Mean Corpuscular Volume 93.7 fl (85-98); Mean Platelet Volume 10.7 fL (7.4-10.4); Monocytes # 0.8 10^3/uL (0.2-0.9); Monocytes % 9.5 %; Neutrophils # 5.73 10^3/uL (1.8-7.7); Neutrophils % 68.8 %; Nucleated Red Blood Cells % 0 %; Platelet Count 233 10^3/cmm (157-399); Red Blood Count 4.63 10^6/uL (3.85-5.65); Red Cell Distribution Width 12.5 % (12.1-15.1); White Blood Count 8.34 10^3/uL (3.29-11.43)
[2023-08-13 16:57] LABS: Troponin(5th) Baseline < 6 ng/L (0-10)
[2023-08-13 17:00] VITALS: BP 134/82; PULSE 95; O2SAT 90
[2023-08-13 17:03] LABS: Alanine Aminotransferase 15 U/L (0-33); Albumin Level 4.6 g/dL (3.5-5.2); Alkaline Phosphatase 98 U/L (35-105); Anion Gap 16.5 (5-19); Aspartate Amino Transferase 17 U/L (0-32); Blood Urea Nitrogen 13 mg/dL (8-23); Calcium 10.4 mg/dL (8.5-10.5); Carbon Dioxide 23 mmol/L (22-29); Chloride 100 mmol/L (98-107); Creatinine Clr Calc Pharmacy 56.8897; Glucose 90 mg/dL (65-115); Osmolality Calculated 280 mOsm/kg (285-295); Potassium 4.5 mmol/L (3.5-5.1); Sodium 135 mmol/L (136-145); Total Bilirubin 0.4 mg/dL (0.15-1.2); Total Protein 7.6 g/dL (6.6-8.7)
== END 2023-08-13 17:33 | disposition home or self-care (01) ==
PROVIDERS: Emergency Provider Family Medicine; PCP Electrodiagnostic Medicine
DX: R00.2 Palpitations (principal); I10 Essential (primary) hypertension; Z79.02 Long term (current) use of antithrombotics/antiplatelets; Z79.01 Long term (current) use of anticoagulants; Z87.891 Personal history of nicotine dependence; E78.5 Hyperlipidemia, unspecified
CPT/HCPCS: 36415; 71045; 80053; 84484; 85025; 93005; 99285

== ENCOUNTER 2023-08-27 11:45 | Outpatient (RCR) | payer SELFPAY | END 2023-09-24 23:59 | disposition home or self-care (01) | LOC: CR 11:45 | PROVIDERS: PCP Electrodiagnostic Medicine; Referring Provider Internal Medicine Cardiovascular Disease; Visit Provider Internal Medicine | DX: Z95.5 Presence of coronary angioplasty implant and graft (principal) ==

== ENCOUNTER 2023-09-25 12:59 | Outpatient (RCR) | payer SELFPAY | END 2023-10-25 23:59 | disposition home or self-care (01) | LOC: CR 12:59 | PROVIDERS: PCP Electrodiagnostic Medicine; Referring Provider Internal Medicine Cardiovascular Disease; Visit Provider Internal Medicine | DX: Z95.5 Presence of coronary angioplasty implant and graft (principal) ==

== ENCOUNTER 2023-10-27 12:40 | Outpatient (RCR) | payer SELFPAY | END 2023-11-24 23:59 | disposition home or self-care (01) | LOC: CR 12:40 | PROVIDERS: PCP Electrodiagnostic Medicine; Referring Provider Internal Medicine Cardiovascular Disease; Visit Provider Internal Medicine | DX: Z95.5 Presence of coronary angioplasty implant and graft (principal) ==

== ENCOUNTER 2023-11-26 13:24 | Outpatient (RCR) | payer SELFPAY | END 2023-12-25 23:59 | disposition home or self-care (01) | LOC: CR 13:24 | PROVIDERS: PCP Electrodiagnostic Medicine; Referring Provider Internal Medicine Cardiovascular Disease; Visit Provider Internal Medicine | DX: Z95.5 Presence of coronary angioplasty implant and graft (principal) ==

== ENCOUNTER 2023-12-29 13:08 | Outpatient (RCR) | payer SELFPAY | END 2024-01-24 23:59 | disposition home or self-care (01) | LOC: CR 13:08 | PROVIDERS: PCP Electrodiagnostic Medicine; Referring Provider Internal Medicine Cardiovascular Disease; Visit Provider Internal Medicine | DX: Z95.5 Presence of coronary angioplasty implant and graft (principal) ==

== ENCOUNTER 2024-01-25 15:20 | Outpatient (RCR) | payer SELFPAY | END 2024-02-24 23:59 | disposition home or self-care (01) | LOC: CR 15:20 | PROVIDERS: PCP Electrodiagnostic Medicine; Referring Provider Internal Medicine Cardiovascular Disease; Visit Provider Internal Medicine | DX: Z95.5 Presence of coronary angioplasty implant and graft (principal) ==

== ENCOUNTER 2024-02-23 03:08 | Emergency (ER) | payer MEDICARE, SELFPAY ==
[2024-02-23 03:13] VITALS: BP 134/95; PULSE 75; RESP 16; TEMP 36.4; O2SAT 94; BMI 32.2
--- NOTE | 2024-02-23 03:28 | ED_ITS ---
HPI - Dental/Oral General: Chief complaint: Dental/Oral Stated complaint: dental blew clot, on blood thinners Time Seen by Provider: 02/23/24 03:21 History of Present Illness: Patient presents to the ER with bleeding from her left upper molar that was pulled approximately week ago. He has a scab on this area she thinks she may have hit when she was brushing her teeth. Injury has not stopped bleeding. Patient is on Eliquis and Plavix for carotid coronary artery stent and interm ittent atrial fibrillation. Patient sees Dr. Cedeno her equipment superintendent. Review of Systems General: Reports: 10 or more systems reviewed and unremarkable except in HPI and below PFSH ED PFSH: Medical History Onychodystrophy Ventricular arrhythmia History of high blood pressure Sleep apnea Migraines Fibromyalgia Hyperlipidemia ASHD (arteriosclerotic heart disease) Surgical History Presence of stent in LAD coronary artery H/O tubal ligation H/O: knee surgery H/O shoulder surgery Family History Mother CAD (coronary artery disease) Diabetes Stroke Brother CAD (coronary artery disease) Dementia Father Stroke Other Hyperlipidemia Hypertension Psychiatric illness Denies family history of Clotting disorder Chronic kidney disease (CKD) Suicide Anesthesia complication Bleeding disorder Lung disease Cancer Social History Smoking and tobacco/nicotine status: former use of tobacco/nicotine Alcohol intake: never Substance/Drug Use: never Physical Exam Const: COMMON NORMALS: no acute distress, average body habitus, patient oriented x3, no limitations, healthy appearing, alert and well nourished HENMT: COMMON NORMALS: normocephalic, atraumatic, hearing grossly normal bilaterally, external ears normal, Normal external nose present and moist oral mucous membranes; dentition not normal (Upper left molar area with clot and bleeding around that.) HEAD & SCALP: normocephalic and atraumatic NOSE: Normal external nose present EXTERNAL EAR: Yes external ears normal Neck/C-Spine: COMMON NORMALS: full ROM, no lymphadenopathy, supple, no meningeal signs, no JVD and Thyroid normal THYROID: Thyroid normal Chest: COMMONS NORMALS: normal inspection of the chest and normal palpation of entire chest wall Resp: COMMON NORMALS: normal respiratory effort, No retractions, No use of accessory muscles and clear to auscultation bilaterally AUSCULTATION: clear to auscultation bilaterally Cardio: COMMON NORMALS: no JVD, regular rate, regular rhythm, S1 normal heart sound present, S2 normal heart sound present, No gallops present (Cardio), No clicks present (Cardio), No murmurs present (Cardio) and No rub (Cardio) RATE: regular rate RHYTHM: regular rhythm HEART SOUNDS: S1 normal heart sound present and S2 normal heart sound present GI: COMMON NORMALS: Normal to inspection, nondistended, normoactive bowel sounds present, Soft to palpation, non-tender, No hepatosplenomegaly present and no masses PALPATION: Yes Soft to palpation and Yes No hepatosplenomegaly present Neuro: COMMON NORMALS: patient oriented x3 SENSORIUM/ORIENTATION: Yes alert MENINGEAL SIGNS: Yes no meningeal signs Course Vital Signs: Vital signs: Vital Signs Temperature 97.6 F 02/23/24 03:13 Pulse Rate 79 02/23/24 04:32 Respiratory Rate 16 02/23/24 03:13 Blood Pressure 146/89 02/23/24 04:32 Pulse Oximetry 95 02/23/24 04:32 Oxygen Delivery Me thod Room Air 02/23/24 03:13 [facility] - Dental/Oral Medical Decision Making Patient was bleeding from her extraction site. She had tried to place gauze up there like a pressure dressing her phone self as well as teabags neither 1 worked. Patient is on Eliquis and Plavix. Patient had taken with epi infused gauze placed in the area which did not help. Patient had Surgicel on top of gauze that did not help. TXA was not helpful. We ended up needing to anesthetize the area right around the gum and the root with 1% lidocaine with epi approximately 2 cc was used. This improved the bleeding it was packed with gauze and rechecked at 5 and 10-minute intervals and had not restarted bleeding it. Patient be discharged home. Patient to stay off her Plavix for the next 2 days and call her equipment superintendent first opening of business hours today. Medical Records I reviewed the patient's medical records. Lab Data I reviewed the patient's lab results. No radiology studies performed this visit Discharge Plan Discharge Patient Disposition: Home Clinical Impression: Surgical wound hemorrhage after dental procedure Condition: Stable Prescriptions: No Action magnesium oxide 400 mg magnesium tablet 400 mg PO DAILY nitroglycerin 0.4 mg tablet, sublingual 0.4 mg sublingual Q5M PRN (Reason: chest pain) 30 Days Qty: 30 3RF Rx Instructions: until response; do not exceed 3 doses per episode pantoprazole 40 mg tablet,delayed release (DR/EC) 40 mg PO DAILY cholecalciferol (vitamin D3) 50 mcg (2,000 unit) capsule 50 mcg PO DAILY folic acid 800 mcg tablet 0.8 mg PO DAILY alprazolam 0.25 mg tablet 0.25 mg PO TID PRN (Reason: Anxiety) clopidogrel 75 mg tablet 75 mg PO DAILY Qty: 90 3RF rosuvastatin 5 mg tablet 5 mg PO DAILY Qty: 90 3RF Eliquis 5 mg tablet 5 mg PO BID Qty: 60 5RF sumatriptan succinate 25 mg tablet 25 mg PO Q2H PRN (Reason: Headache) Premarin 0.625 mg/gram cream 1 applic vaginal DIRECTED metoprolol succinate 100 mg tablet extended release 24 hr 100 mg PO DAILY amlodipine 5 mg tablet 5 mg PO DAILY Qty: 30 0RF Discharge Orders: Discharge ED (Routine); Ordered 02/23/24 Ordered By: Audi Barth Referrals: Nelson Gonzales DO [Primary Care Provider] - 1 week Patient Instructions: Lidocaine/Epinephrine (By injection) Activity Restrictions/Additional Instructions: We tried multiple measures to get her bleeding under control. We ended up using lidocaine with epinephrine and packing the extraction site to control bleeding. Please stay off your Plavix for the next 2 days. Please alert your equipment superintendent for their opinion of this as well as your dentist. If you have any more bleeding problems as uncontrolled please feel free to return to the ER. Coding Level of Care Code ED Coat Maker for Cee Hardy
[2024-02-23] MEDS: tranexamic acid 1,000 mg/10mL SDV 1000 MG XX ×2 (04:28→05:56)
[2024-02-23 04:32] VITALS: BP 146/89; PULSE 79; O2SAT 95
[2024-02-23 06:10] VITALS: PULSE 76; O2SAT 96
== END 2024-02-23 06:08 | disposition home or self-care (01) ==
PROVIDERS: Emergency Provider Emergency Medicine; PCP Electrodiagnostic Medicine
DX: K91.840 Postprocedural hemorrhage of a digestive system organ or structure following a digestive system procedure (principal); Z87.891 Personal history of nicotine dependence; E78.5 Hyperlipidemia, unspecified; Z79.02 Long term (current) use of antithrombotics/antiplatelets; Z79.01 Long term (current) use of anticoagulants
CPT/HCPCS: 99284

== ENCOUNTER 2024-02-24 03:45 | Emergency (ER) | payer MEDICARE, SELFPAY ==
[2024-02-24 03:47] VITALS: BP 119/87; PULSE 91; RESP 16; TEMP 36.6; O2SAT 94; BMI 32.2
--- NOTE | 2024-02-24 04:15 | ED_ITS ---
Documented by User: Audi Barth DO 02/24/24 04:35 HPI - Dental/Oral 2 General: Chief complaint: Dental/Oral Stated complaint: mouth bleeding again, passed out Time Seen by Provider: 02/24/24 03:54 History of Present Illness: Patient presents with her dental extraction socket bleeding again. Patient went to the dentist today and he could not really figure out why she was bleeding so much other than being on the Plavix and the Eliquis. Patient has not taken either one of them yesterday she did call her senior operations analyst and cleared this with him. He wanted her not to take them until 48 hours after the bleeding stopped. But the dentist packed her socket and she has been doing good up until earlier today it started bleeding and she had clotting and she had such big clots in her mouth she had to remove the packing several times to get the clot out otherwise she was gagging. Then 1 time she removed it and was packing it and it unable to get it to stop bleeding. 1 time when patient was changing the packing she stood up at the sink got lightheaded and dizzy fell down. Patient did not hit her head or lose consciousness. Patient thinks is probably due to her sugar going low but she has not been eating very much today secondary to being nauseous from all the blood in her mouth. Review of Systems 2 General: Reports: 10 or more systems reviewed and unremarkable except in HPI and below PFSH ED 2 PFSH: Medical History Onychodystrophy Ventricular arrhythmia History of high blood pressure Sleep apnea Migraines Fibromyalgia Hyperlipidemia ASHD (arteriosclerotic heart disease) Surgical History Presence of stent in LAD coronary artery H/O tubal ligation H/O: knee surgery H/O shoulder surgery Family History Mother CAD (coronary artery disease) Diabetes Stroke Brother CAD (coronary artery disease) Dementia Father Stroke Other Hyperlipidemia Hypertension Psychiatric illness Denies family history of Clotting disorder Chronic kidney disease (CKD) Suicide Anesthesia complication Bleeding disorder Lung disease Cancer Social History Smoking and tobacco/nicotine status: former use of tobacco/nicotine Alcohol intake: never Substance/Drug Use: never Physical Exam 2 Const: COMMON NORMALS: no acute distress, average body habitus, patient oriented x3, no limitations, healthy appearing, alert and well nourished HENMT: COMMON NORMALS: normocephalic, atraumatic, hearing grossly normal bilaterally and external ears normal HEAD & SCALP: normocephalic and atraumatic EXTERNAL EAR: Yes external ears normal OTHER: Left upper molar region socket has a partial clot but is still streaming down the left inside cheek. Neck/C-Spine: COMMON NORMALS: full ROM, no lymphadenopathy, supple, no meningeal signs, no JVD and Thyroid normal THYROID: Thyroid normal Resp: COMMON NORMALS: normal respiratory effort, No retractions, No use of accessory muscles and clear to auscultation bilaterally AUSCULTATION: clear to auscultation bilaterally Cardio: COMMON NORMALS: no JVD, regular rate, regular rhythm, S1 normal heart sound present, S2 normal heart sound present, No gallops present (Cardio), No clicks present (Cardio), No murmurs present (Cardio) and No rub (Cardio) R ATE: regular rate RHYTHM: regular rhythm HEART SOUNDS: S1 normal heart sound present and S2 normal heart sound present Neuro: COMMON NORMALS: patient oriented x3 SENSORIUM/ORIENTATION: Yes alert MENINGEAL SIGNS: Yes no meningeal signs Course 2 Vital Signs: Vital signs: Vital Signs Temperature 97.9 F 02/24/24 03:47 Pulse Rate 91 02/24/24 03:47 Respiratory Rate 16 02/24/24 03:47 Blood Pressure 119/87 02/24/24 03:47 Pulse Oximetry 94 02/24/24 03:47 Oxygen Delivery Me thod Room Air 02/24/24 03:47 MDM - Dental/Oral Medical Decision Making Packing was removed mouth was rinsed with water to clean all the blood and blood clots from the mouth. Then TXA was applied to gauze and the gauze repacked to the tooth socket. Medical Records I reviewed the patient's medical records. Lab Data I reviewed the patient's lab results. 02/24/24 04:49 Laboratory Results WBC 9.20 10^3/uL (3.29-11.43) 02/24/24 04:49 RBC 4.12 10^6/uL (3.85-5.65) 02/24/24 04:49 Hgb 12.90 g/dL (11.27-16.99) 02/24/24 04:49 Hct 38.4 % (36-47) 02/24/24 04:49 MCV 93.2 fl (85-98) 02/24/24 04:49 MCH 31.3 pg (27-33) 02/24/24 04:49 MCHC 33.6 g/dL (30-55) 02/24/24 04:49 RDW 12.7 % (12.1-15.1) 02/24/24 04:49 Plt Count 243 10^3/cmm (157-399) 02/24/24 04:49 MPV 10.3 fL (7.4-10.4) 02/24/24 04:49 Neut % (Auto) 71.7 % 02/24/24 04:49 Lymph % (Auto) 17.3 % 02/24/24 04:49 [place] % (Auto) 10.2 % 02/24/24 04:49 Eos % (Auto) 0.2 % 02/24/24 04:49 Baso % (Auto) 0.4 % 02/24/24 04:49 Neut # (Auto) 6.59 10^3/uL (1.8-7.7) 02/24/24 04:49 Lymph # (Auto) 1.6 10^3/uL (0.8-4.8) 02/24/24 04:49 [place] # (Auto) 0.9 10^3/uL (0.2-0.9) 02/24/24 04:49 Eos # (Auto) 0.0 10^3/uL (0.0-0.8) 02/24/24 04:49 Baso # (Auto) 0.0 10^3/uL (0.0-0.1) 02/24/24 04:49 Nucleated RBC % (auto) 0 % 02/24/24 04:49 Nucleated RBCs # 0.0 /100WBC 02/24/24 04:49 POC Glucose 132 mg/dL (70-110) H 02/24/24 05:17 No radiology studies performed this visit Discharge Plan Discharge Patient Disposition: Home Clinical Impression: Surgical wound hemorrhage after dental procedure, Medication side effects Condition: Stable Prescriptions: No Action magnesium oxide 400 mg magnesium tablet 400 mg PO DAILY nitroglycerin 0.4 mg tablet, sublingual 0.4 mg sublingual Q5M PRN (Reason: chest pain) 30 Days Qty: 30 3RF Rx Instructions: until response; do not exceed 3 doses per episode pantoprazole 40 mg tablet,delayed release (DR/EC) 40 mg PO DAILY cholecalciferol (vitamin D3) 50 mcg (2,000 unit) capsule 50 mcg PO DAILY folic acid 800 mcg tablet 0.8 mg PO DAILY alprazolam 0.25 mg tablet 0.25 mg PO TID PRN (Reason: Anxiety) clopidogrel 75 mg tablet 75 mg PO DAILY Qty: 90 3RF rosuvastatin 5 mg tablet 5 mg PO DAILY Qty: 90 3RF Eliquis 5 mg tablet 5 mg PO BID Qty: 60 5RF sumatriptan succinate 25 mg tablet 25 mg PO Q2H PRN (Reason: Headache) Premarin 0.625 mg/gram cream 1 applic vaginal DIRECTED metoprolol succinate 100 mg tablet extended release 24 hr 100 mg PO DAILY amlodipine 5 mg tablet 5 mg PO DAILY Qty: 30 0RF Discharge Orders: Discharge ED (Routine); Ordered 02/24/24 Ordered By: Boby Vital Referrals: Nelson Gonzales, [Primary Care Provider] - Discharge Diet: Full LIquid Discharge Activity: Increase activity as tolerated Patient Instructions: Opioid Safety, Pain Management Activity Restrictions/Additional Instructions: Thank you for choosing [facility] for your healthcare needs today. It is very important that you follow up as instructed or that you return to the Emergency Department should you have concerns or if your condition changes or worsens in any way. You were seen this morning for complaints of bleeding from the gums where you had a tooth extracted. Bleeding stopped with application of medication. Recommend you continue to hold your clopidogrel and Eliquis until advised to do safe to do so by the dentist. You should resume these once the risk of bleeding is stopped. Estimate that will be in 4 to 5 days. Do recommend that you follow-up with your dentist today at minimum advised him that you were seen in the emergency room again this morning. Your hemoglobin today was normal. Recommend you leave the current packing in place until late this afternoon approximately 12 hours after it was placed. Follow-up with your dentist for further instructions regarding aftercare of this dental extraction. You may need a full liquid diet and advance as per dentist instructions. Sign Out Sign Out Data: Patient Sign Out occurred on 02/24/24 at 05:57. Patient's care was discussed, and care was transferred from Audi Barth DO to Boby Vital DO. Coding Level of Care Code ED Sign Language Interpreter for Chg Fwd Documented by User: Boby Vital DO 02/24/24 07:21 HPI - Dental/Oral 2 General: Chief complaint: Dental/Oral Stated complaint: mouth bleeding again, passed out Time Seen by Provider: 02/24/24 03:54 PFSH ED 2 PFSH: Medical History Onychodystrophy Ventricular arrhythmia History of high blood pressure Sleep apnea Migraines Fibromyalgia Hyperlipidemia ASHD (arteriosclerotic heart disease) Surgical History Presence of stent in LAD coronary artery H/O tubal ligation H/O: knee surgery H/O shoulder surgery Family History Mother CAD (coronary artery disease) Diabetes Stroke Brother CAD (coronary artery disease) Dementia Father Stroke Other Hyperlipidemia Hypertension Psychiatric illness Denies family history of Clotting disorder Chronic kidney disease (CKD) Suicide Anesthesia complication Bleeding disorder Lung disease Cancer Social History Smoking and tobacco/nicotine status: former use of tobacco/nicotine Alcohol intake: never Substance/Drug Use: never Course 2 Vital Signs: Vital signs: Vital Signs Temperature 97.9 F 02/24/24 03:47 Pulse Rate 91 02/24/24 03:47 Respiratory Rate 16 02/24/24 03:47 Blood Pressure 119/87 02/24/24 03:47 Pulse Oximetry 94 02/24/24 03:47 Oxygen Delivery Me thod Room Air 02/24/24 03:47 MDM - Dental/Oral Medical Decision Making Packing was removed mouth was rinsed with water to clean all the blood and blood clots from the mouth. Then TXA was applied to gauze and the gauze repacked to the tooth socket. Care assumed at change of shift no further active bleeding. Will discharge patient home advised her to continue to stay off of the Eliquis and at the clopidogrel. Patient has a history of atrial fibrillation had stents 4 to 5 years ago her senior operations analyst has advised it was safe to be offered recommend that she stay off for least another 5 days or until cleared by the dentist. She does see a local dentist encouraged her to follow-up with her dentist today either by phone or in person just to make them aware that she is continue to have problems. She should not remove the packing that was placed this morning until late this afternoon which will be approximately 12 hours after was initially placed. She can do a full liquid diet but should not do any solids until released by the dentist. Patient was concerned about her blood sugar because she states she was told she was prediabetic she is not on any antihyperglycemic's blood sugar was 132. Hemoglobin is stable at 12.9. Return if has further bleeding. Patient reminded not to remove the packing until late this afternoon about 12 hours after was initially placed Lab Data 02/24/24 04:49 Laboratory Results WBC 9.20 10^3/uL (3.29-11.43) 02/24/24 04:49 RBC 4.12 10^6/uL (3.85-5.65) 02/24/24 04:49 Hgb 12.90 g/dL (11.27-16.99) 02/24/24 04:49 Hct 38.4 % (36-47) 02/24/24 04:49 MCV 93.2 fl (85-98) 02/24/24 04:49 MCH 31.3 pg (27-33) 02/24/24 04:49 MCHC 33.6 g/dL (30-55) 02/24/24 04:49 RDW 12.7 % (12.1-15.1) 02/24/24 04:49 Plt Count 243 10^3/cmm (157-399) 02/24/24 04:49 MPV 10.3 fL (7.4-10.4) 02/24/24 04:49 Neut % (Auto) 71.7 % 02/24/24 04:49 Lymph % (Auto) 17.3 % 02/24/24 04:49 [place] % (Auto) 10.2 % 02/24/24 04:49 Eos % (Auto) 0.2 % 02/24/24 04:49 Baso % (Auto) 0.4 % 02/24/24 04:49 Neut # (Auto) 6.59 10^3/uL (1.8-7.7) 02/24/24 04:49 Lymph # (Auto) 1.6 10^3/uL (0.8-4.8) 02/24/24 04:49 [place] # (Auto) 0.9 10^3/uL (0.2-0.9) 02/24/24 04:49 Eos # (Auto) 0.0 10^3/uL (0.0-0.8) 02/24/24 04:49 Baso # (Auto) 0.0 10^3/uL (0.0-0.1) 02/24/24 04:49 Nucleated RBC % (auto) 0 % 02/24/24 04:49 Nucleated RBCs # 0.0 /100WBC 02/24/24 04:49 POC Glucose 132 mg/dL (70-110) H 02/24/24 05:17 Discharge Plan Discharge Patient Disposition: Home Clinical Impression: Surgical wound hemorrhage after dental procedure, Medication side effects Condition: Stable Prescriptions: No Action magnesium oxide 400 mg magnesium tablet 400 mg PO DAILY nitroglycerin 0.4 mg tablet, sublingual 0.4 mg sublingual Q5M PRN (Reason: chest pain) 30 Days Qty: 30 3RF Rx Instructions: until response; do not exceed 3 doses per episode pantoprazole 40 mg tablet,delayed release (DR/EC) 40 mg PO DAILY cholecalciferol (vitamin D3) 50 mcg (2,000 unit) capsule 50 mcg PO DAILY folic acid 800 mcg tablet 0.8 mg PO DAILY alprazolam 0.25 mg tablet 0.25 mg PO TID PRN (Reason: Anxiety) clopidogrel 75 mg tablet 75 mg PO DAILY Qty: 90 3RF rosuvastatin 5 mg tablet 5 mg PO DAILY Qty: 90 3RF Eliquis 5 mg tablet 5 mg PO BID Qty: 60 5RF sumatriptan succinate 25 mg tablet 25 mg PO Q2H PRN (Reason: Headache) Premarin 0.625 mg/gram cream 1 applic vaginal DIRECTED metoprolol succinate 100 mg tablet extended release 24 hr 100 mg PO DAILY amlodipine 5 mg tablet 5 mg PO DAILY Qty: 30 0RF Discharge Orders: Discharge ED (Routine); Ordered 02/24/24 Ordered By: Boby Vital Referrals: Nelson Gonzales DO [Primary Care Provider] - Discharge Diet: Full LIquid Discharge Activity: Increase activity as tolerated Patient Instructions: Opioid Safety, Pain Management Activity Restrictions/Additional Instructions: Thank you for choosing [facility] for your healthcare needs today. It is very important that you follow up as instructed or that you return to the Emergency Department should you have concerns or if your condition changes or worsens in any way. You were seen this morning for complaints of bleeding from the gums where you had a tooth extracted. Bleeding stopped with application of medication. Recommend you continue to hold your clopidogrel and Eliquis until advised to do safe to do so by the dentist. You should resume these once the risk of bleeding is stopped. Estimate that will be in 4 to 5 days. Do recommend that you follow-up with your dentist today at minimum advised him that you were seen in the emergency room again this morning. Your hemoglobin today was normal. Recommend you leave the current packing in place until late this afternoon approximately 12 hours after it was placed. Follow-up with your dentist for further instructions regarding aftercare of this dental extraction. You may need a full liquid diet and advance as per dentist instructions. Sign Out Sign Out Data: Patient Sign Out occurred on 02/24/24 at 05:57. Patient's care was discussed, and care was transferred from Audi Barth DO to Boby Vital DO. Coding Level of Care Code ED Sign Language Interpreter for Cee Hardy
[2024-02-24] MEDS: tranexamic acid 1,000 mg/10mL SDV 1000 MG XX (04:21)
[2024-02-24 04:52] LABS: Basophils % 0.4 %; Eosinophils % 0.2 %; Hematocrit 38.4 % (36-47); Lymphocytes # 1.6 10^3/uL (0.8-4.8); Lymphocytes % 17.3 %; Mean Corpuscular HGB Conc 33.6 g/dL (30-55); Mean Corpuscular Hemoglobin 31.3 pg (27-33); Mean Corpuscular Volume 93.2 fl (85-98); Mean Platelet Volume 10.3 fL (7.4-10.4); Monocytes # 0.9 10^3/uL (0.2-0.9); Monocytes % 10.2 %; Neutrophils # 6.59 10^3/uL (1.8-7.7); Neutrophils % 71.7 %; Nucleated Red Blood Cells % 0 %; Platelet Count 243 10^3/cmm (157-399); Red Blood Count 4.12 10^6/uL (3.85-5.65); Red Cell Distribution Width 12.7 % (12.1-15.1)
[2024-02-24 05:21] LABS: Glucose Point of Care 132 mg/dL (70-110)
== END 2024-02-24 07:32 | disposition home or self-care (01) ==
PROVIDERS: Emergency Medicine; Emergency Provider Family Medicine; PCP Electrodiagnostic Medicine
DX: K91.840 Postprocedural hemorrhage of a digestive system organ or structure following a digestive system procedure (principal); T50.905A Adverse effect of unspecified drugs, medicaments and biological substances, initial encounter; Z79.02 Long term (current) use of antithrombotics/antiplatelets; Z79.01 Long term (current) use of anticoagulants; E78.5 Hyperlipidemia, unspecified; Z87.891 Personal history of nicotine dependence
CPT/HCPCS: 36415; 36416; 82962; 85025; 99283

== ENCOUNTER 2024-02-25 11:18 | Outpatient (RCR) | payer SELFPAY | END 2024-03-31 09:06 | disposition home or self-care (01) | LOC: CR 11:18 | PROVIDERS: PCP Electrodiagnostic Medicine; Referring Provider Internal Medicine Cardiovascular Disease; Visit Provider Internal Medicine | DX: Z95.5 Presence of coronary angioplasty implant and graft (principal) ==

== ENCOUNTER 2024-03-30 12:24 | Outpatient (RCR) | payer SELFPAY | END 2024-04-25 23:59 | disposition home or self-care (01) | LOC: CR 12:24 | PROVIDERS: PCP Electrodiagnostic Medicine; Referring Provider Internal Medicine Cardiovascular Disease; Visit Provider Internal Medicine | DX: Z95.5 Presence of coronary angioplasty implant and graft (principal) ==

== ENCOUNTER 2024-04-26 13:19 | Outpatient (RCR) | payer SELFPAY | END 2024-05-26 23:59 | disposition home or self-care (01) | LOC: CR 13:19 | PROVIDERS: PCP Electrodiagnostic Medicine; Referring Provider Internal Medicine Cardiovascular Disease; Visit Provider Internal Medicine | DX: Z95.5 Presence of coronary angioplasty implant and graft (principal) ==

== ENCOUNTER 2024-04-28 10:13 | Outpatient (CLI) | payer MEDICARE, SELFPAY ==
--- NOTE | 2024-04-28 10:16 | MM_ITS ---
WS: [id number] BILATERAL SCREENING DIGITAL TOMOSYNTHESIS MAMMOGRAM WITH CAD HISTORY: SCREENING COMPARISON: 04/24/2023, 04/15/2022, 10/19/2018 Bilateral CC and MLO views with tomosynthesis and synthetic mammography submitted. Computer aided det ection analyzed. Breast composition: There are scattered areas of fibroglandular density. No suspicious masses, microc alcifications or architectural distortion. MM/MM scr BI tomosynthesis [id number] IMPRESSION: BI-RADS: 1 - Negative. FOLLOW UP: 1 Year Follow-up
== END 2024-04-28 10:14 | disposition home or self-care (01) ==
LOC: RAD 10:14
PROVIDERS: PCP Electrodiagnostic Medicine; Visit Provider Electrodiagnostic Medicine
DX: Z12.31 Encounter for screening mammogram for malignant neoplasm of breast (principal); R92.323 Mammographic fibroglandular density, bilateral breasts
CPT/HCPCS: 77063; 77067

== ENCOUNTER 2024-05-27 13:05 | Outpatient (RCR) | payer SELFPAY | END 2024-06-25 23:59 | disposition home or self-care (01) | LOC: CR 13:05 | PROVIDERS: PCP Electrodiagnostic Medicine; Referring Provider Internal Medicine Cardiovascular Disease; Visit Provider Internal Medicine | DX: Z95.5 Presence of coronary angioplasty implant and graft (principal) ==

== ENCOUNTER 2024-07-07 09:04 | Outpatient (CLI) | payer MEDICARE, SELFPAY ==
--- NOTE | 2024-07-07 09:06 | MRR_ITS ---
PROCEDURE INFORMATION: Exam: MR Left Lower Extremity Joint Without Contrast, Knee Exam date and time: 07/07/2024 9:22 AM Age: 73 years old Clinical indication: Swelling or effusion of joint; Patient HX: Chronic left knee pain, pain medial and posterior; Additional info: Effusion left knee TECHNIQUE: Imaging protocol: Magnetic resonance imaging of the left lower extremity joint without contrast. Exam focused on the knee. COMPARISON: CR XR knee LT 3V* [id number] 06/28/2024 12:51 PM FINDINGS: Bones/joints: Sessile shaped area of low signal intensity involving the articular margin of the medial femoral condyle with prominent surrounding bone marrow edema suspicious for spontaneous osteonecrosis or osteochondral insufficiency fracture. Small bandlike area of altered signal just below the articular surface of the medial tibial plateau with less pronounced surrounding bone marrow edema also suspicious for subcortical insufficiency fracture. 1.5 cm oval-shaped bony density is smaller bony density more posteriorly along the medial gutter likely representing loose bodies. Diffuse thinning of articular cartilage lateral patellar facet consistent with grade 2-grade 3 chondromalacia patella. Medial meniscus: Small radial tear involving the posterior tibial root of the medial meniscus likely responsible for mild outward meniscus extrusion. Lateral meniscus: Unremarkable. No tear. Anterior cruciate ligament: Unremarkable. No tear. Posterior cruciate ligament: Unremarkable. No tear. Medial capsule and supporting structures: Unremarkable. No tear. Lateral capsule and supporting structures: Unremarkable. No tear. Extensor mechanism of knee: Unremarkable. No tear. Soft tissues: Small joint effusion. Fluid superficial to the patellar tendon suggestive of prepatellar bursitis. MR/MR knee LT wo con* [id number] IMPRESSION: 1. Small posterior root tear of the medial meniscus with mild associated meniscal extrusion. 2. Spontaneous osteonecrosis (subchondral insufficiency fracture) involving the articular surface medial femoral condyle with associated bone marrow edema. 3. Subcortical insufficiency fracture medial tibial plateau with mild amount of surrounding bone marrow edema. 4. Two loose bodies along the medial gutter. 5. Grade 2-grade 3 chondromalacia patella. 6. Small joint effusion and mild prepatellar bursitis.
== END 2024-07-07 09:05 | disposition home or self-care (01) ==
LOC: RAD 09:05
PROVIDERS: PCP Electrodiagnostic Medicine; Visit Provider Electrodiagnostic Medicine
DX: M23.222 Derangement of posterior horn of medial meniscus due to old tear or injury, left knee (principal); M25.462 Effusion, left knee; S72.432A Displaced fracture of medial condyle of left femur, initial encounter for closed fracture; S82.132A Displaced fracture of medial condyle of left tibia, initial encounter for closed fracture; M23.42 Loose body in knee, left knee; M22.42 Chondromalacia patellae, left knee; X58.XXXA Exposure to other specified factors, initial encounter
CPT/HCPCS: 73721

== ENCOUNTER 2024-07-27 10:10 | Outpatient (RCR) | payer SELFPAY | END 2024-08-26 23:59 | disposition home or self-care (01) | LOC: CR 10:10 | PROVIDERS: PCP Internal Medicine Cardiovascular Disease; Referring Provider Internal Medicine Cardiovascular Disease; Visit Provider Electrodiagnostic Medicine | DX: Z95.5 Presence of coronary angioplasty implant and graft (principal) ==

== ENCOUNTER 2024-08-03 06:00 | Outpatient (CLI) | payer MEDICARE, SELFPAY | END 2024-08-03 23:59 | disposition home or self-care (01) | LOC: SPT 08-08 09:58 | PROVIDERS: PCP Internal Medicine Cardiovascular Disease; Visit Provider Specialist | DX: Z46.89 Encounter for fitting and adjustment of other specified devices (principal); M17.12 Unilateral primary osteoarthritis, left knee | CPT/HCPCS: 97760; 99204; L1851 ==

== ENCOUNTER → 2024-08-03 14:56 | Outpatient (BNVA) | payer MEDICARE, SELFPAY | PROVIDERS: PCP Electrodiagnostic Medicine; Visit Provider Specialist | DX: M17.12 Unilateral primary osteoarthritis, left knee; M11.261 Other chondrocalcinosis, right knee; M11.262 Other chondrocalcinosis, left knee | CPT/HCPCS: 73560; 73565 ==

== ENCOUNTER 2024-08-29 15:28 | Outpatient (RCR) | payer SELFPAY | END 2024-09-23 23:59 | disposition home or self-care (01) | LOC: CR 15:28 | PROVIDERS: PCP Internal Medicine Cardiovascular Disease; Referring Provider Internal Medicine Cardiovascular Disease; Visit Provider Electrodiagnostic Medicine | DX: Z95.5 Presence of coronary angioplasty implant and graft (principal) ==

== ENCOUNTER → 2024-09-19 13:35 | Outpatient (BNVA) | payer MEDICARE, SELFPAY | PROVIDERS: PCP Internal Medicine Cardiovascular Disease; Visit Provider Specialist | DX: M84.462A Pathological fracture, left tibia, initial encounter for fracture (principal); M17.12 Unilateral primary osteoarthritis, left knee; X58.XXXA Exposure to other specified factors, initial encounter | CPT/HCPCS: 73560; 73562; 73565; 99214 ==

== ENCOUNTER 2024-09-24 12:33 | Outpatient (RCR) | payer SELFPAY | END 2024-10-24 23:59 | disposition home or self-care (01) | LOC: CR 12:33 | PROVIDERS: PCP Internal Medicine Cardiovascular Disease; Referring Provider Internal Medicine Cardiovascular Disease; Visit Provider Electrodiagnostic Medicine | DX: Z95.5 Presence of coronary angioplasty implant and graft (principal) ==

== ENCOUNTER 2024-10-25 14:04 | Outpatient (RCR) | payer SELFPAY | END 2024-11-23 23:59 | disposition home or self-care (01) | LOC: CR 14:04 | PROVIDERS: PCP Internal Medicine Cardiovascular Disease; Referring Provider Internal Medicine Cardiovascular Disease; Visit Provider Electrodiagnostic Medicine | DX: Z95.5 Presence of coronary angioplasty implant and graft (principal) ==

== ENCOUNTER 2024-11-24 12:15 | Outpatient (RCR) | payer SELFPAY | END 2024-12-24 23:59 | disposition home or self-care (01) | LOC: CR 12:15 | PROVIDERS: PCP Internal Medicine Cardiovascular Disease; Referring Provider Internal Medicine Cardiovascular Disease; Visit Provider Electrodiagnostic Medicine | DX: Z95.5 Presence of coronary angioplasty implant and graft (principal) ==

== ENCOUNTER 2024-12-28 10:24 | Outpatient (RCR) | payer SELFPAY | END 2025-01-23 23:59 | disposition home or self-care (01) | LOC: CR 10:24 | PROVIDERS: PCP Internal Medicine Cardiovascular Disease; Visit Provider Internal Medicine Cardiovascular Disease | DX: Z95.5 Presence of coronary angioplasty implant and graft (principal) ==

== ENCOUNTER 2025-01-24 11:33 | Outpatient (RCR) | payer SELFPAY | END 2025-02-23 23:59 | disposition home or self-care (01) | LOC: CR 11:33 | PROVIDERS: PCP Internal Medicine Cardiovascular Disease; Visit Provider Internal Medicine Cardiovascular Disease | DX: Z95.5 Presence of coronary angioplasty implant and graft (principal) ==

== ENCOUNTER 2025-02-24 14:46 | Outpatient (RCR) | payer SELFPAY | END 2025-03-26 23:59 | disposition home or self-care (01) | LOC: CR 14:46 | PROVIDERS: PCP Internal Medicine Cardiovascular Disease; Visit Provider Internal Medicine Cardiovascular Disease | DX: I25.10 Atherosclerotic heart disease of native coronary artery without angina pectoris (principal) ==

== ENCOUNTER 2025-03-28 14:08 | Outpatient (RCR) | payer SELFPAY | END 2025-04-25 23:59 | disposition home or self-care (01) | LOC: CR 14:08 | PROVIDERS: PCP Internal Medicine Cardiovascular Disease; Visit Provider Internal Medicine Cardiovascular Disease | DX: Z95.5 Presence of coronary angioplasty implant and graft (principal) ==

== ENCOUNTER 2025-04-22 00:43 | Emergency (ER) | payer MEDICARE, SELFPAY ==
--- OUTSIDE RECORDS SUMMARY | 2024-05-21 04:00 | XMS_ITS ---
Author Organization [facility] Address [address] [place] [address] Care Team Providers Care Insurance Agency Owner Name Role Phone Daren Clolins Primary Care Provider Unavailabl e Migration, Provider Unavailable Unavailable REASON FOR VISIT EMR-Alo Encounters Encounter Location Date Provider Diagnosis Migrated_Facility 0 0 05/21/2024 Provider Migration Plan Of Treatment No Information Progress Notes * Christy PECKDOB: [birth year] (74 yo F)Acc No.[id number]:05/21/2024 Patient: Christy LUCIA :1950 A ge:73 Y S ex:Female Address:[address], [place], [address] Subjective: * Chief Complaints: * E MR-Alo * * Date:
--- OUTSIDE RECORDS SUMMARY | 2024-05-22 04:00 | XMS_ITS ---
Author Organization [facility] Address [address] [place] [address] Care Team Providers Care Pressfitter Name Role Phone Daren Collins Primary Care Provider Unavailabl e Migration, Provider Unavailable Unavailable REASON FOR VISIT EMR-Alo Encounters Encounter Location Date Provider Diagnosis Migrated_Facility 0 0 05/22/2024 Provider Migration Plan Of Treatment No Information Progress Notes * Christy PECKDOB: [birth year] (74 yo F)Acc No.[id number]:05/22/2024 Patient: Christy LUCIA :1950 A ge:73 Y S ex:Female Address:[address], [place], [address] Subjective: * Chief Complaints: * E MR-Alo * * Date:
[2025-04-22 00:44] VITALS: BP 180/84; PULSE 75; RESP 16; TEMP 36.6; O2SAT 94; BMI 32.2
--- NOTE | 2025-04-22 00:44 | ECG_ITS ---
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
--- OUTSIDE RECORDS SUMMARY | 2025-04-22 00:47 | XMS_ITS | Patient Health Record ---
Author Organization [facility] Address [address] [place] [address] Care Team Providers Care Classroom Teacher Name Role Phone Daren Collins Primary Care Provider Unavailabl e Migration, Provider Unavailable Unavailable Reason For Referral No Information Encounters Encounter Location Date Provider Diagnosis Migrated_Facility 0 0 05/21/2024 Provider Migration Migrated_Facility 0 0 05/22/2024 Provider Migration Plan Of Treatment No Information
--- OUTSIDE RECORDS SUMMARY | 2025-04-22 00:47 | XMS_ITS | Continuity of Care Document ---
Author Organization ABBI Magallanes [facility] Juan Carlos Turner, [facility] ([facility]) Address [address] [place] [address] Care Team Providers Care Desulphuring Operator Name Role Phone MAGO MCGRATH Primary Care Provider Unavailabl e Assessment No assessment recorded. Plan of Treatment Reminders Order Date Submit Date Provider Last Modified By Organization Details Last Modified Time Details Appointments RECHECK 2024 11:10A M Mago Mcgrath, DO Not available Not available Not available RECHECK 10 2024 08:50A M Mago Mcgrath, DO Not available Not available Not available Lab None recorded. Referral None recorded. Procedures None recorded. Surgeries None recorded. Imaging electroca rdiogram 2024 025 [email or web address] [facility] ([facility]), [address] [place], [address], 04/21/2025 15:33:01 Medication Orders None recorded. Patient TargetsNo targets recorded. Patient InstructionsNo instructions recorded. Reason for Referral None Reported. Results Created Date Observation Date Name Description Value Unit Range Abnormal Flag Note LastModifiedBy Organization Detail LastModifiedTime 04/21/2004/21/2025 elect cristine campos am No observ ation record ed. LONNIE [facility] ([facility]) [address] [place], [address], 04/21/2025 16:04:46 Result Notes None recorded. Problems Name Problem SNOMED Code Status Onset Date Resolution Date Notes Provider Name and Address Organization Details Recorded Time Irritant contact dermatit is due to plants, except food Completed 202002/28/2021 CONTACT DERMATIT IS AND ECZEMA DUE TO PLANT - Status is Resolved ; Resolved Date: 02/29/20; Recorded 02/29/20 11:10AM by Cristy Perales PA-C, Annotati on/Adden dum; Promoted ; acuity set as *; Not Available [facility] 3 03:16:28 Palpitat ions [id number] Completed 202002/28/2021 PALPITAT IONS - Status is Inactive ; Recorded 02/29/20 12:27PM by Cristy Perales PA-C, Annotati on/Adden dum; Promoted ; acuity set as *; Not Available [facility] 3 03:16:28 Sleep apnea [id number] Completed 202002/28/2021 Sleep Apnea - Status is Inactive ; 02/29/20 11:10AM by Cristy Perales PA-C, Annotati on/Adden dum; Promoted ; acuity set as *; Not Available [facility] 3 03:16:28 Migraine NOS Completed 202002/28/2021 Migraine s - Status is Inactive ; 02/29/20 12:27PM by Cristy Perales PA-C, Annotati on/Adden dum; Promoted ; acuity set as *; Not Available [facility] 3 03:16:36 Hypothyr oidism [id number] Completed 202002/28/2021 Hypothyr oidism - Status is Inactive ; 02/29/20 12:27PM by Cristy Perales PA-C, Annotati on/Adden dum; Promoted ; acuity set as *; Not Available [facility] 3 03:16:38 Breast neoplasm screenin g status [id number] Completed 202002/28/2021 BREAST CANCER SCREENIN G - Status is Inactive ; Recorded 02/29/20 12:27PM by Cristy Perales PA-C, Annotati on/Adden dum; Promoted ; acuity set as *; Not Available [facility] 3 03:16:38 Dietary manageme nt surveill ance Completed 202002/28/2021 DIETARY SURVEILL ANCE AND COUNSELI NG - Status is Inactive ; Recorded 02/29/20 12:27PM by Cristy Perales PA-C, Annotati on/Adden dum; Promoted ; acuity set as *; Not Available [facility] 3 03:16:39 Adult health examinat ion Completed 202007/26/2021 ROUTINE GENERAL MEDICAL EXAMINAT ION AT A HEALTH CARE FACILITY - Status is Resolved ; Resolved Date: 07/26/20; Recorded 07/26/20 2:16PM by Perla Stern LPN, Birigtati on/Adden dum; Promoted ; acuity set as *; Not Available [facility] 3 03:16:37 Obstruct gerald sleep apnea syndrome 38259180 [facility] 4 10:31:06 Fibromya lgia 240670727 Active 2022 Fibromya lgia - Status is Inactive ; 02/29/20 11:10AM by Cristy Perales PA-C, uDtch on/Adden dum; Promoted ; acuity set as *; ; Start Date : 02/29/20 FIBRO MYALGIA; Recorded 09/26/19 11:23AM by Alla Amezcua, Office Visit; Promoted ; acuity set as *; Not Available [facility] 3 03:16:31 Migraine 61737228 Active 2022 MIGRAINE ; Recorded 09/26/19 11:23AM by Alla Amezcua, Office Visit; Promoted ; acuity set as *; MIGRAIN E HEADACHE - Status is Inactive ; Impressi on: Pt. requeste d through [facility] .; Recorded 02/29/20 11:47AM by Cristy Perales PA-C, Annotati on/Adden dum; Promoted ; acuity set as *; ; Start Date : 02/29/20 Not Available [facility] 3 03:16:33 Congesti ve heart failure 74984574 Active 2022 Mago Mcgrath DO [address] [place] [address], [address] , [facility] 5 17:05:16 Adult health examinat ion Active 2022 Mago Mcgrath, [address], [address] , [facility] 3 08:01:05 Atrial fibrilla tion 31036815 Active 2022 Mago Mcgrath, [address], [address] , [facility] 5 17:05:29 Angina pectoris 454155000 Active 2022 Mago Mcgrath, [address], [address] , [facility] 3 08:05:46 Atrial septal aneurysm 51450031 Active 2022 Mago Mcgrath, [address], [address] , [facility] 3 11:59:24 Systolic murmur 21681920 Active [address], [address] , [facility] 3 11:59:27 Skin lesion 15007746 Active 2022 Mago Mcgrath [address], [address] , [facility] 3 10:39:38 Osteoart hritis 280250283 Active 2022 Steffen taylor [facility] 5 13:13:15 Prediabe jack 006769035 Active 2022 Magomarlene Mcgrath, [address], [address] , [facility] 3 09:24:41 Generali zed anxiety disorder 50828272 Active 2022 Mago Mcgrath, [address], [address] , [facility] 3 09:27:27 Muscle pain 52923249 Active 2022 Mago Mcgrath, [address], [address] , [facility] 3 09:34:05 Osteopen ia 660135695 Active 2022 Mago Mcgrath [address], [address] , [facility] 3 17:01:54 Pain of left shoulder joint 68966436468 389726 Active 2023 Mago Mcgrath [address], [address] , [facility] 4 17:46:41 Moderate recurren t major depressi on 49393477 Active 2023 Mago Mcgrath [address], [address] , [facility] 4 10:38:52 Hyperlip idemia 08228644 Active 2023 Mago Mcgrath [address], [address] , [facility] 4 10:39:34 Essentia l hyperten vinicio 29750308 Active 2023 Mago Mcgrath [address], [address] , [facility] 5 17:05:31 Secondar y hyperald osteroni sm 27757640 Active 2023 Mago Mcgrath [address], [address] , [facility] 4 10:42:30 Acute maxillar y sinusiti s 14157353 Active 2023 Maog Mcgrath, [address], [address] , [facility] 4 18:59:46 Inflamed seborrhe ic keratosi s 267015269 Active 2023 Mago Mcgrath [address], [address] , [facility] 4 19:01:01 Pain of left knee joint 07896605407 4107 Active 2023 Mago Mcgrath [address], [address] , [facility] 4 15:38:14 History and physical examinat ion, annual [facility] Active 2024 Mago Mcgrath [address], [address] , [facility] 5 18:58:06 Problem Notes None recorded. Procedures Surgical History Date Name Laterality Status Provider Name and Address Organization Details Recorded Time 4 Joint Inj Kenalog- Shoulder, Hip, Knee completed Mago Mcgrath DO [address] [place] [address], [address], [facility] 06/29/2024 18:20:50 4 Joint Inj Kenalog- Shoulder, Hip, Knee completed Mago Mcgrath DO [address] [place], [address], [facility] 07/16/2024 17:09:56 4 jr julieth braunts completed Mago MoDO mary [address] [place] [address], [address], [facility] 05/24/2024 10:39:59 4 Joint Inj Kenalog- Shoulder, Hip, Knee completed [facility] 12/23/2023 16:11:42 4 Joint Inj Kenalog- Shoulder, Hip, Knee completed [facility] 08/03/2023 16:46:43 3 Excision and closure completed Mago Mcgrath DO [address] [place] [address], [address], [facility] 04/15/2023 16:41:44 procedure on shoulder completed [facility] 07/10/2024 14:34:10 Knee Surgery completed [facility] 07/10/2024 14:34:40 Stent completed Francisca Ronaldo [facility] 07/10/2024 14:35:28 Tubal Ligation completed Francisca [facility] 07/10/2024 14:35:44 Imaging Results None recorded. Procedure Notes None recorded. Medical Equipment None Reported. Allergies Allergen ID Allergen Name Allergen Category Reaction Reaction Severity Criticality Documentation Date Start Date Code Code System Note Provider Name and Address Organization Details Recorded Time 1721 Substance with sulfonami de structure and antibacte rial mechanism of action (substanc e) medicatio n anaphylax is severe high 11/11/2022 39638 2380 SNOMED Shikha taylor [facility] 4 12:15:31 1722 Product containin g penicilli n (product) medicatio n rash mild low 11/11/2022 94400 8001 SNOMED Shikha Ramírez [facility] 4 12:15:25 1723 oxycodone medicatio n other Not available Not available 11/11/2022 7804 RxNorm turns pt brigh t red. Shikha Ramírez [facility] 4 12:15:14 1724 hydrocodo ne Not available other Not available Not available 11/11/2022 5489 RxNorm turns pt brigh t red. Shikha Ramírez [facility] 4 12:15:08 1725 amiodaron e medicatio n hallucina tions moderate low 11/11/2022 703 RxNorm Shikha Ramírez [facility] 4 12:14:31 41628 codeine medicatio n other Not available Not available 02/21/2023 2670 RxNorm turns pt brigh t red. Shikha Ramírez [facility] 4 12:14:54 58861 sulfadiaz ine medicatio n Not available Not available Not available 02/21/2023 86396 RxNorm Comme nt: Recor ded 09/25 11:23 AM by Emily Fofana r, Offic e Visit ; Promo jacinta; Signi fican ce: *; Reaso n: Drug aller gy; ; Shikha Ramírez [facility] 4 12:15:37 32017 penicilli n V potassium medicatio n Not available Not available Not available 02/21/2023 49400 5 RxNorm Comme nt: Recor ded 09/25 11:23 AM by Emily Fofana r, Offic e Visit ; Promo jacinta; Signi fican ce: *; Reaso n: Drug aller gy; ; Shikha Ramírez [facility] 12:15:16 Medications Name Sig Start Date Stop Date Status Note LastModified by Organization Details LastModified Time carvedilo l 6.25 mg tablet TAKE 1 TABLET TWICE A DAY BY MOUTH FOR 30 DAYS, FOR BLOOD PRESSURE . active Not Available Not Available No t Available prednison e 10 mg tablet Take 0.5 tablets every day by oral route for 10 days. 03/05 completed Not Available Not Available Not Available doxycycli ne hyclate 100 mg capsule TAKE 1 CAPSULE BY MOUTH TWICE A DAY FOR 7 DAYS 12/15 completed Not Available Not Available Not Available clindamyc in HCl 300 mg capsule TAKE 1 CAPSULE BY MOUTH TWICE A DAY FOR 7 DAYS 02/16 completed Not Available Not Available Not Available azithromy devonte 250 mg tablet TAKE 2 TABLETS BY MOUTH TODAY, THEN TAKE 1 TABLET DAILY FOR 4 DAYS DIRECTED 05/24 completed Not Available Not Available Not Available amiodaron e 200 mg tablet TAKE 1/2 TABLET BY MOUTH ONCE DAILY 11/11 completed Not Available Not Available Not Available metoprolo l succinate ER 50 mg tablet,ex tended release 24 hr TAKE 1 TABLET EVERY DAY BY MOUTH, FOR BLOOD PRESSURE . 02/02 completed Not Available Not Available Not Available sumatript an 25 mg tablet TAKE 1 TABLET BY MOUTH EVERY DAY NEEDED active Not Available Not Available No t Available prednison e 20 mg tablet TAKE 1 TABLET BY MOUTH EVERY DAY FOR 5 DAYS 05/24 completed Not Available Not Available Not Available metoprolo l succinate ER 100 mg tablet,ex tended release 24 hr TAKE 1 TABLET BY MOUTH EVERY DAY 04/18 completed Not Available Not Available Not Available sumatript an 50 mg tablet TAKE 1 TABLET BY MOUTH NEEDED 11/11 completed Not Available Not Available Not Available amlodipin e 2.5 mg tablet TAKE 1 TABLET BY MOUTH EVERY DAY active Not Available Not Available No t Available clopidogr el 75 mg tablet TAKE 1 TABLET BY MOUTH EVERY DAY active Not Available Not Available No t Available amlodipin e 5 mg tablet 08/27 completed Not Available Not Available Not Available ciproflox acin 500 mg tablet TAKE 1 TABLET BY MOUTH TWICE A DAY TILL GONE 03/08 completed Not Available Not Available Not Available aspirin 81 mg tablet,de layed release TAKE 1 TABLET BY MOUTH EVERY DAY WITH FOOD 07/10 completed Not Available Not Available Not Available tramadol 50 mg tablet Take 1 tablet 3 times a day by oral route. 12/15 completed Not Available Not Available Not Available triamcino lone acetonide 0.1 % topical cream APPLY THIN LAYER TO AFFECTED AREA TWICE DAILY UNTIL CLEAR active Not Available Not Available No t Available ketorolac 10 mg tablet TAKE 1 TABLET BY MOUTH EVERY 8 HOURS NEEDED 11/11 completed Not Available Not Available Not Available Kenalog 40 mg/mL suspensio n for injection Take 40 mg by injectio n route. 08/16 completed Not Available Not Available Not Available betametha sone acetate and sodium phos 6 mg/mL suspensio n for injection Take 6 mg by injectio n route. 01/28 completed Not Available Not Available Not Available alprazola m 0.25 mg tablet TAKE 1 TABLET BY MOUTH EVERY DAY NEEDED active Not Available Not Available No t Available potassium chloride ER 8 mEq tablet,ex tended release TAKE 1 TABLET BY MOUTH EVERY DAY 04/02 completed Not Available Not Available Not Available Kenalog 10 mg/mL suspensio n for injection Take 20 mg by injectio n route. 01/28 completed Not Available Not Available Not Available cephalexi n 500 mg capsule TAKE 1 CAPSULE BY MOUTH TWICE FOUR TIMES DAILY FOR 5 DAYS FOR SKIN INFECTIO N 11/11 completed Not Available Not Available Not Available pantopraz ole 40 mg tablet,de layed release TAKE 1 TABLET BY MOUTH EVERY DAY active Not Available Not Available No t Available triamcino lone acetonide 0.1 % topical ointment APPLY THIN COAT TO AFFECTED AREA TWICE A DAY active Not Available Not Available No t Available diltiazem ER (XR/XT) 120 mg capsule,e xtended release 24 hr, controlle d TAKE 1 CAPSULE BY MOUTH EVERY DAY 08/27 completed Not Available Not Available Not Available metoprolo l tartrate 50 mg tablet TAKE 1 TABLET BY MOUTH TWICE A DAY 04/18 completed Not Available Not Available Not Available nitroglyc pranay 0.4 mg sublingua l tablet PLACE 1 TABLET UNDER TONGUE EVERY 5 MINS, UP TO 3 DOSES NEEDED FOR CHEST PAIN active Not Available Not Available No t Available sertralin e 25 mg tablet TAKE 1/2 TABLET DAILY FOR 7 DAYS, THEN 1 TABLET DAILY. 11/11 completed Not Available Not Available Not Available mupirocin 2 % topical ointment 09/21 completed Not Available Not Available Not Available furosemid e 20 mg tablet TAKE 1 TABLET BY MOUTH EVERY DAY 04/02 completed Not Available Not Available Not Available levofloxa devonte 500 mg tablet Take 1 tablet every day by oral route for 10 days. 06/15 completed Not Available Not Available Not Available diltiazem 30 mg tablet TAKE 1 TABLET BY MOUTH EVERY 8 HOURS NEEDED FOR ARRHYTHM IA 04/02 completed Not Available Not Available Not Available ketorolac 60 mg/2 mL intramusc ular solution Inject 2 mL every day by intramus cular route. 07/10 completed Not Available Not Available Not Available escitalop lora 10 mg tablet TAKE 1 TABLET BY MOUTH EVERY DAY 04/02 completed Not Available Not Available Not Available Premarin 0.625 mg/gram vaginal cream INSERT 1/2 APPLICAT ORFUL VAGINALL Y EVERY DAY 12/17 completed Not Available Not Available Not Available rosuvasta tin 5 mg tablet TAKE 1 TABLET BY MOUTH EVERY DAY active Not Available Not Available No t Available magnesium at bedtime 04/02 completed 0; Recorded 09/26/19 11:23AM by Alla Amezcua, Office Visit; Not Available Not Available Not Available folic acid 04/02 completed 0; Recorded 09/26/19 11:23AM by Alla Amezcua, Office Visit; Not Available Not Available Not Available Imitrex as needed 04/02 completed DM/sd; 30689; Recorded 07/22/20 8:54AM by Yaa Au (Authori chaitanya through Mago Mcgrath DO), Annotati on/Adden dum; Refill Quantity : 20; Tablet; Not Available Not Available Not Available Plavix daily 04/[address] LAU; 0; Recorded 09/26/19 11:23AM by Alla Amezcua, Office Visit; Not Available Not Available Not Available Crestor daily 04/02 completed 0; Recorded 09/26/19 11:23AM by Alla Amezcua, Office Visit; Not Available Not Available Not Available B12 250 mg daily active Not Available Not Available No t Available amlodipin e besylate (bulk) daily 04/02 completed 0; Recorded 09/26/19 11:23AM by Alla Amezcua, Office Visit; Not Available Not Available Not Available Eliquis 5 mg tablet TAKE 1 TABLET BY MOUTH TWICE A DAY active Not Available Not Available No t Available Saumyaquis DR LAU 04/02 completed 0; Recorded 09/26/19 11:23AM by Alla Amezcua, Office Visit; Not Available Not Available Not Available Vitals Date Recorded Body height Body mass index (BMI) Body weight Body temperature Heart rate Oxygen saturation Oxygen saturation in Arterial blood by Pulse oximetry Systolic And Diastolic Provider Name and Address Organization Details Last Updated DateTime 152.4 cm 33.4 kg/m2 91981.3 g 97.8 [degF] 84 /min 96 % 96 % 134/78 mm[Hg] Shireen Bowling [facility] 14:52:38 Social History Question Answer Notes LastModified by Organizat ion Details LastModified Time Tobacco Smoking Status Former Smoker quit smoking in 1999. Steffen taylor, [facility] 08/16/2024 10:59:57 What Was The Date Of Your Most Recent Tobacco Screening? 04/21/2025 [id number] Information not available 04/21/2025 Sex: Unknown Functional Status Question Answer Note LastModified by Organizat ion Details LastModified Time Do you use any illicit or recreational drugs? No [email or web address] Information not available 11/11/2022 Do you or have you ever used any other forms of tobacco or nicotine? No [email or web address] Information not available 11/11/2022 What is your level of alcohol consumption? None [email or web address] Information not available 11/11/2022 Mental Status None recorded. Family History Nothing Reported. Medical History Condition Response Coronary Artery Disease N Other N Gout N Kidney Stones N Blood Diseases N Hyperthyroidism N Breast Cancer N Blood Transfusion N Depression N Hypothyroidism N Lung Disease N COPD N Defects or Inherited Disease N Developmental or Behavioral Disorders N Breast Problem N Difficulty Swallowing N Anesthesia Complications N Meniere's disease N Anxiety Disorder Y Muscle, Joint, or Bone Problems Y Vision or Eye Problems N Arthritis Y Polyps N Infertility N Cancer N Varicosities N Stroke N Endometriosis N Bladder or Kidney Problems N High Cholesterol Y Liver Disease N Fibromyalgia N Headaches Y Kidney Disease N Allergies/Hayfever N Heart Problems Y Ear or Hearing Problems N Hospitalizations N Thyroid Problems N GI Problems N ADD/ADHD N Skin Problems N Eating Disorder N Anemia N Constipation N Mental Illness N Ovarian Cancer N Diabetes N Bedwetting N Seizures/Epilepsy N Tuberculosis N Eczema N Diverticulitis N Abuse/Domestic Violence N Asthma N Reflux/GERD N Hepatitis N Heart Disease Y Pulmonary Embolism N Pre-Eclampsia N Hypertension Y Chronic Ear Infections N Osteoporosis Y Chicken Pox N Autism Spectrum Disorder (ASD) N Thrombophilias N Gynecological HistoryNo gynecological history recorded. Obstetrics History GPAL:G 0 P 0 0 0 0 Immunizations Vaccine Type Date Status Note Provider Nam e and Address Organization Details Recorded Time Influenza, high-dose, quadrivalent, PF 0 completed Toshia taylor [facility] 01/06/2024 10:26:11 COVID-19, mRNA, LNP-S, PF, 30 mcg/0.3 mL dose 1 completed Toshia taylor [facility] 01/06/2024 10:26:11 COVID-19, mRNA, LNP-S, bivalent, PF, 30 mcg/0.3 mL dose 2 completed Toshia taylor [facility] 01/06/2024 10:26:11 Influenza, split virus, quadrivalent, PF 3 completed YAA taylor [facility] 05/04/2023 13:32:16 Influenza, split virus, trivalent, preservative 8 completed Not Available [facility] 02/21/2023 02:16:56 Pneumococcal conjugate PCV 13 8 completed Toshia taylor [facility], [place] 01/06/2024 10:26:11 Tdap 3 completed Not Available [facility] 02/21/2023 02:16:56 Past Encounters Encounter ID Performer Location Encounter Start Date Encounter Closed Date Diagnosis/Indication Diagnosis SNOMED-CT Code Diagnosis ICD10 Code Diagnosis IMO Codes Diagnosis Note [id number] Mago Mcgrath DO [facility] ([facility]) [address] [place] [phone] 04/13/2025 08:09:53 04/14/2025 11:28:40 Essential hypertension 52963010 I10 02/02/25: Continue Metoprolol at 100mg.01/11: Counseled alternate Metoprolol 50mg/100mg every other day for 2 weeks, continue to monitor BP and HR, if doing well, may then take 50mg daily. RTC 3 weeks. Prediabetes 817777942 R7 3.03 [id number] 12/15/24: A1c deteriorat ed to 5.8, counseled on diet, increasing activity.- A1c improved to 5.4 on 03/08/24, counseled on diet, exercise. Pt going to try a no sugar diet, working on weight loss. [id number] Mago Mcgrath DO [facility] ([facility]) [address] [place] [phone] 04/18/2025 10:43:27 04/18/2025 12:06:47 Essential hypertension 98158017 I10 04/18/25: Fatigue with Metoprolol , BP increased when changed, counseled change to Carvedilol . Counseled on diagnosis, treatment options including medication s and possible side effects. Monitor BP and keep a log, f/u with me in 2 weeks.02/02: Continue Metoprolol at 100mg.01/11: Counseled alternate Metoprolol 50mg/100mg every other day for 2 weeks, continue to monitor BP and HR, if doing well, may then take 50mg daily. RTC 3 weeks. Atrial fibrillation 4940 6004 I48.91 Continue Eliquis, Cardio resumed Plavix. Pain of left wrist 16631 13233 66003 M25.532 [id number] 04/18/25: counseled continue wrist brace at night, wear a little looser, we want it snug, but not tight. Offered Cortisone injection, declined d/t prior rxn to Cortisone injection. History an d physical examination, annual for health maintenance 49963026 Z00.00 [id number] Patient presented to office today for their Annual Wellness Visit. Education was provided on healthy nutrition, including a diet rich in fruits and vegetables , minimizing simple carbohydra jack, salt, and saturated fats. Encouraged regular cardiovasc ular exercise such as walking at least 30 minutes daily, 5 times per week. Emphasized preventive health measures and educated pt on fall prevention and community- based lifestyle interventi ons to help reduce health risks and promote healthy living. [id number] RIMA SERRANO [facility] ([facility]) [address] [place] [phone] 04/21/2025 14:23:28 04/21/2025 15:33:00 Chest pain 73785997 R07.89 [id number] No active symptoms currently. EKG shows no signs of acute ischemia. Pt will keep appt as scheduled with her PCP this Thursday. If the chest/head discomfort returns she will f/u in ER Health Concerns Section Related Observation LastModified by Organization [facility] LastModified Time None Recorded Concern Status LastModified by Organization Details LastModified Time None Recorded Payers Encounter Date Sequence Insurance Name Policy Number Policy Moreno Covered Member ID Moreno Member ID Guarantor Name 04/21/2025 1 [employer] (MEDICARE REPLACEMENT/ ADVANTAGE - PPO) Christy Oquendo [id number] Christy Oquendo Notes Date Note Type Note Provider Name and Address Organization Details Recorded Time 04/21/2025 text/html ROS as noted in the HPI walk in ptPT was having chest discomfort and headache yesterday. Went to cardiac rehab today. Was told to come here for a 12 lead EKG. pt states her chest/head discomfort has not returned. When these symptoms started yesterday she contacted her PCP and was asked to f/u in ER. Pt states she did not go to ER and the symptoms resolved. She completed her cardiac rehab with no symptoms. Has a f/u appt with her PCP this Thursday. Was recently changed to carvedolol. ROLA BEE, ANESTHESIOLOGIST ASSISTANT [address] [place], [address], [facility] 04/21/2025 15:31:47 OBGyn Episode No OBEpisode recorded.
--- OUTSIDE RECORDS SUMMARY | 2025-04-22 00:47 | XMS_ITS | Encounter Summary ---
Author Organization [facility] Address 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
--- OUTSIDE RECORDS SUMMARY | 2025-04-22 00:47 | XMS_ITS | Clinical Summary ---
Author Organization [facility] Address [address] [address] [place] [phone] Phone Care Team Providers Care Production Lead Name Role Phone Unavailable Primary Care Provider Unavailabl e Allergies Active Allergy Reactions Criticality Noted Date Comments Amiodarone Anxiety,Constipation,Fever Medium Hydrocodone Other (See Comments) Low 10/03/2024 Penicillin Rash Low 10/03/2024 Sulfa (Sulfonamide Antibiotics) Anaphylaxis High 10/03/2024 Medications amLODIPine (NORVASC) 2.5 mg tablet Take 2.5 mg by mouth daily. Active Eliquis 5 mg tablet Take 5 mg by mouth 2 times daily. Active clopidogreL (Plavix) 75 mg Tablet 75 mg. 04/16/2022 Active metoprolol succinate (TOPROL XL) 100 mg Extended Release 24 hour tablet Take 1 Tablet by mouth daily. 09/12/2024 Active pantoprazole (PROTONIX) 40 mg Tablet, Delayed Release (E.C.) Take 40 mg by mouth daily. Active rosuvastatin (CRESTOR) 5 mg tablet Take 1 Tablet by mouth daily. 08/15/2024 Active SUMAtriptan (IMITREX) 25 mg tablet take 1 tablet by mouth every day as needed Active Active Problems No known active problems Encounters Date Type Department Care Team Description 04/18/2025 External Device Data [facility] Provider, Abstract 04/11/2025 External Device Data [facility] Provider, Abstract 04/04/2025 External Device Data [facility] Provider, Abstract 02/08/2025 External Device Data [facility] Provider, Abstract 02/07/2025 External Device Data [facility] Provider, Abstract from Last 3 Months Social History Tobacco Use Types Packs/Day Years Used Date Smoking Tobacco: Former Cigarettes Comments Unknown Sex and Gender Information Value Date Recorded Sex Assigned at Not on file 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 Gender Identity Not on file Sexual Orientation Not on file Last Filed Vital Signs Vital Sign Reading Time Taken Comments Blood Pressure 128/80 10/03/2024 10:37 AM CDT Pulse - - Temperature - - Respiratory Rate - - Oxygen Saturation - - Inhaled Oxygen Concentration - - Weight 78.9 kg (174 lb) 10/03/2024 10:37 AM CDT Height 152.4 cm (5') 10/03/2024 10:37 AM CDT Body Mass Index 33.98 10/03/2024 10:37 AM CDT Plan of Treatment Health Maintenance Due Date Last Done Comments BREAST CANCER SCREENING 1991 COLORECTAL SCREENING 1996 Colorectal Cancer Screening 1996 FIT-DNA Q 3 years 1996 FIT/FOBT Q 1 year 1996 Flex Sig/CT Colonography Q 5 years 1996 ZOSTER VACCINE (1 of 2) 2001 OSTEOPOROSIS SCREENING 2016 PNEUMOCOCCAL VACCINE 50+ YEA RS (2 of 2 - PCV20 or PCV21) 06/04/2019 06/04/2018 INFLUENZA VACCINE (#1) 2025 , 05/31/2020, 06/04/2018 COVID-19 Vaccine (3 - season) 03/27/202505/2022, 04/24/2021 RSV VACCINE (60+ or ) (1 - 1-dose 75+ series) 2026 DTAP/TDAP/TD VACCINES (2 - T d or Tdap) 09/25/2032 09/25/[address] [place] [phone] [facility]
--- OUTSIDE RECORDS SUMMARY | 2025-04-22 00:48 | XMS_ITS | Data Portability ---
Author Organization [facility] [place] [facility], [facility] Address [address] [address] Care Team Providers Care Hourly Sign Language Interpreter Name Role Phone MAGO MCGRATH Primary Care Provider Unavailabl e Assessment Encounter Date Assessment Date Assessment LastModified by Organization Details LastModified Time 02/02/2025 02/02/2025 Document scribed by Manohar Rios Scribe. I was present during interview and exam. I have reviewed and agree with above documentation . Dr. Mago Mcgrath. [email or web address] Not available 02/02/2025 12:42:54 02/16/2025 02/16/2025 Document scribed by Manohar Rios Scribe. I was present during interview and exam. I have reviewed and agree with above documentation . Dr. Mago Mcgrath. dkiest Not available 02/16/2025 12:27:58 04/18/2025 04/18/2025 Document scribed by Manohar Rios Scribe. I was present during interview and exam. I have reviewed and agree with above documentation . Dr. Mago Mcgrath. Fluvax when she returns in 2 weeks. [email or web address] Not available 04/18/2025 12:15:32 Plan of Treatment Reminders Order Date Submit Date Provider Last Modified By Organization Details Last Modified Time Details Appointments RECHECK 10 2024 11:10A M Mago Mcgrath, DO Not available Not available Not available RECHECK 10 2024 08:50A M Mago Mcgrath, DO Not available Not available Not available Lab hemoglobi n A1C/hemog lobin total, QN, blood 2024 025 [facility], [address] [facility], [address], [place], [address], 04/13/2025 09:28:53 CMP, serum or plasma 2024 025 [facility], [address] [facility], [address], [place], [address], 04/13/2025 09:54:38 CBC 2024 025 [email or web address] 7 [facility], [address], [address], [place], [address], 02/02/2025 16:13:50 C-reactiv e protein, quantitat gerald, serum or plasma 2024 025 [facility], [address] [place] [address] [address], [address] [place], [address], 02/03/2025 08:30:38 ESR (erythroc yte sedimenta tion rate), blood 2024 025 [email or web address] 7 [facility] ([facility]), [address] [place] [address], [address], 02/02/2025 16:13:50 Referral None recorded. Procedures None recorded. Surgeries None recorded. Imaging electroca rdiogram 2024 025 [email or web address] [facility] ([facility]), [address] [place] [address], [address], 04/21/2025 15:33:01 Medication Orders carvedilo l 6.25 mg tablet 2024 025 [email or web address] [id number], [address], [address], [place], [address], 04/18/2025 12:15:24 prednison e 10 mg tablet 2024 025 [id number], [address], [address], [place], [address], 03/05/2025 05:01:55 Patient TargetsNo targets recorded. Patient InstructionsNo instructions recorded. Reason for Referral None Reported. Results Created Date Observation Date Name Description Value Unit Range Abnormal Flag Note LastModifiedBy Organization Detail LastModifiedTime 02/03/2002/02/2025 CBC WBC 5.3 x10 4.0-10 .5 Not Available [facility] [address], [place], [address], 02/02/2025 13:30:03 02/03/2002/02/2025 CBC RBC 4.56 x10 3.50-5 .50 Not Available [facility] [address], [place], [address], 02/02/2025 13:30:03 02/03/20 25 02/02/2025 CBC HGB 13.6 g/dL 12.0-1 6.0 Not Available [facility] [address], [place], [address], 02/02/2025 13:30:03 02/03/2002/02/2025 CBC HCT 41.9 % 37.0-4 7.0 Not Available [facility] [address], [place], [address], 02/02/2025 13:30:03 02/03/2002/02/2025 CBC MCV 91.9 fL 80.0-9 9.9 Not Available [facility] [address], [place], [address], 02/02/2025 13:30:03 02/03/2002/02/2025 CBC MCH 29.8 pg 27.0-3 2.0 Not Available [facility] [address] [facility] [address] [facility] [address], [place], [address], 02/02/2025 13:30:03 02/03/20 25 02/02/2025 CBC MCHC 32.5 g/dL 32.0-3 6.0 Not Available [facility] [place] [facility] [address] [facility] [address], [place], [address], 02/02/2025 13:30:03 02/03/20 25 02/02/2025 CBC RDW 13.7 % 11.5-1 4.5 Not Available [facility] [address] [facility], [place], [address], 02/02/2025 13:30:03 02/03/20 25 02/02/2025 CBC plt 234.5 x10 140.0- 451.0 Not Available [facility] [address] [facility], [place], [address], 02/02/2025 13:30:03 02/03/20 25 02/02/2025 CBC lymphocytes % 31.8 % 20.0-5 0.0 Not Available [facility] [address] [facility], [place], [address], 02/02/2025 13:30:03 02/03/20 25 02/02/2025 CBC granulcytes % 50.0 % 30.0-7 0.0 Not Available [facility] [address] [facility], [place], [address], 02/02/2025 13:30:03 02/03/2002/02/2025 CBC monocytes % 16.9 % 2.0-16 .0 high Not Available [facility] [address] [facility], [place], [address], 02/02/2025 13:30:03 02/03/20 25 02/02/2025 CBC granulcytes# 2.7 x10 Not Rachel ilable [facility] [address] [facility] [address], [place], [address], 02/02/2025 13:30:03 02/03/20 25 02/02/2025 CBC lymphocytes # 1.7 x10 Not Available [facility] [address] [facility] [address], [place], [address], 02/02/2025 13:30:03 02/03/20 25 02/02/2025 CBC monocytes # 0.9 x10 Not Avai lable [facility] [address] [facility] [address], [place], [address], 02/02/2025 13:30:03 02/03/20 25 02/03/2025 C-ANA LAURA CTIVE PROTE IN C-reactive protein <3.0 mg/L <8.0 normal Not Available [facility] [address] [place], [address], 02/03/2025 08:30:38 02/08/20 25 02/07/2025 ESR (eryt hrocy te sedim entat ion rate) , blood SedRate 26 Not Available [facility] ([facility]) [address] [place], [address], 02/02/2025 12:45:57 04/21/2004/21/2025 elect cristine campos am No observ ation record ed. LONNIE [facility] ([facility]) [address] [place], [address], 04/21/2025 16:04:46 Result Notes None recorded. Problems Name Problem SNOMED Code Status Onset Date Resolution Date Notes Provider Name and Address Organization Details Recorded Time Irritant contact dermatit is due to plants, except food Completed 202002/28/2021 CONTACT DERMATIT IS AND ECZEMA DUE TO PLANT - Status is Resolved ; Resolved Date: 02/29/20; Recorded 02/29/20 11:10AM by Cristy Perales PA-C, Birgitati on/Adden dum; Promoted ; acuity set as *; Not Available [facility] 3 03:16:28 Palpitat ions 47372689 Completed 202002/28/2021 PALPITAT IONS - Status is Inactive ; Recorded 02/29/20 12:27PM by Cristy Perales PA-C, Annotati on/Adden dum; Promoted ; acuity set as *; Not Available [facility] 3 03:16:28 Sleep apnea 87292075 Completed 202002/28/2021 Sleep Apnea - Status is Inactive ; 02/29/20 11:10AM by Cristy Perales PA-C, Annotati on/Adden dum; Promoted ; acuity set as *; Not Available [facility] 3 03:16:28 Migraine NOS Completed 202002/28/2021 Migraine s - Status is Inactive ; 02/29/20 12:27PM by Cristy Perales PA-C, Annotati on/Adden dum; Promoted ; acuity set as *; Not Available [facility] 3 03:16:36 Hypothyr oidism 81494479 Completed 202002/28/2021 Hypothyr oidism - Status is Inactive ; 02/29/20 12:27PM by Cristy Perales PA-C, Annotati on/Adden dum; Promoted ; acuity set as *; Not Available [facility] 3 03:16:38 Breast neoplasm screenin g status 991511263 Completed 202002/28/2021 BREAST CANCER SCREENIN G - Status is Inactive ; Recorded 02/29/20 12:27PM by Cristy Perales PA-C, Annotati on/Adden dum; Promoted ; acuity set as *; Not Available [facility] 3 03:16:38 Dietary manageme nt surveill ance Completed 202002/28/2021 DIETARY SURVEILL ANCE AND COUNSELI NG - Status is Inactive ; Recorded 08/05/20 21 12:27PM by Cristy Perales PA-C, Annotati on/Adden dum; Promoted ; acuity set as *; Not Available [facility] 3 03:16:39 Adult health examinat ion Completed 202007/26/2021 ROUTINE GENERAL MEDICAL EXAMINAT ION AT A HEALTH CARE FACILITY - Status is Resolved ; Resolved Date: 07/26/20 21; Recorded 07/26/20 2:16PM by Perla Stern LPN, Annotati on/Adden dum; Promoted ; acuity set as *; [facility] 3 03:16:37 Obstruct gerald sleep apnea syndrome 68437469 Active 2022 Steffen taylor, [facility] 4 10:31:06 Fibromya lgia 637781259 Active 2022 Fibromya lgia - Status is Inactive ; 02/29/20 11:10AM by Cristy Perales PA-C, Annotati on/Adden dum; Promoted ; acuity set as *; ; Start Date : 02/29/20 FIBRO MYALGIA; Recorded 09/26/19 11:23AM by Alla Amezcua, Office Visit; Promoted ; acuity set as *; Not Available [facility] 3 03:16:31 Migraine 89046377 Active 2022 MIGRAINE ; Recorded 09/26/19 11:23AM by Alla Amezcua, Office Visit; Promoted ; acuity set as *; MIGRAIN E HEADACHE - Status is Inactive ; Impressi on: Pt. requeste d through [facility] .; Recorded 02/29/20 11:47AM by Cristy Perales PA-C, Annotati on/Adden dum; Promoted ; acuity set as *; ; Start Date : 02/29/20 Not Available [facility] 3 03:16:33 Congesti ve heart failure 09220320 Active 2022 Mago Mcgrath DO [address] [place] [address], [address] , [facility] 5 17:05:16 Adult health examinat ion Active 2022 Mago Mcgrath, [address], [address] , [facility] 3 08:01:05 Atrial fibrilla tion 41399913 Active 2022 Mago Mcgrath, [address], [address] , [facility] 5 17:05:29 Angina pectoris 100126843 Active 2022 Mago Mcgrath, [address], [address] , [facility] 3 08:05:46 Atrial septal aneurysm 18459929 Active 2022 Mago Mcgrath [address], [address] , [facility] 3 11:59:24 Systolic murmur 47952019 Active 2022 Mago Mcgrath [address], [address] , [facility] 3 11:59:27 Skin lesion 16056741 Active 2022 Mago Mcgrath [address], [address] , [facility] 3 10:39:38 Osteoart hritis 976624820 Active 2022 Steffen taylor [facility] 5 13:13:15 Prediabe jack 233323500 Active 2022 Mago Mcgrath [address], [address] , [facility] 3 09:24:41 Generali zed anxiety disorder 81371983 Active [address], [address] , [facility] 3 09:27:27 Muscle pain 38096995 Active [address], [address] , [facility] 3 09:34:05 Osteopen ia 517564782 Active [address], [address] , [facility] 3 17:01:54 Pain of left shoulder joint 73741209170 866293 Active [address], [address] , [facility] 4 17:46:41 Moderate recurren t major depressi on 23824354 Active [address], [address] , [facility] 4 10:38:52 Hyperlip idemia 77055024 Active [address], [address] , [facility] 4 10:39:34 Essentia l hyperten vinicio 26429314 Active [address], [address] [place] [address] , [facility] 5 17:05:31 Secondar y hyperald osteroni sm 38138718 Active 2023 Mago Mcgrath [address], [address] , [facility] 4 10:42:30 Acute maxillar y sinusiti s 48591635 Active 2023 Mago Mcgrath [address], [address] , [facility] 4 18:59:46 Inflamed seborrhe ic keratosi s 444136387 Active 2023 Mago Mcgrath [address], [address] , [facility] 4 19:01:01 Pain of left knee joint 99021849061 4107 Active 2023 Mago Mcgrath [address] [place] [address], [address] , [facility] 4 15:38:14 History and physical examinat [facility], [facility] Active 2024 Mago Mcgrath [address], [address] , [facility] 5 18:58:06 Problem Notes None recorded. Procedures Surgical History Date Name Laterality Status Provider Name and Address Organization Details Recorded Time 4 Joint Inj Kenalog- Shoulder, Hip, Knee completed Mago Mcgrath [address], [address], [facility] 06/29/2024 18:20:50 4 Joint Inj Kenalog- Shoulder, Hip, Knee completed Mago Mcgrath [address] [place] [address], [address], [facility] 07/16/2024 17:09:56 4 jr cryo warts completed Mago Mcgrath DO [address] [place] [address], [address], [facility] 05/24/2024 10:39:59 4 Joint Inj Kenalog- Shoulder, Hip, Knee completed [facility] 12/23/2023 16:11:42 4 Joint Inj Kenalog- Shoulder, Hip, Knee completed [facility] 08/03/2023 16:46:43 3 Excision and closure completed Mago Mcgrath DO [address] [place] [address], [address], [facility] 04/15/2023 16:41:44 procedure on shoulder completed [place] Ronaldo [facility] 07/10/2024 14:34:10 Knee Surgery completed [facility] 07/10/2024 14:34:40 Stent completed Francisca Ronaldo [facility] 07/10/2024 14:35:28 Tubal Ligation completed [facility] 07/10/2024 14:35:44 Imaging Results None recorded. Procedure Notes None recorded. Medical Equipment None Reported. Allergies Allergen ID Allergen Name Allergen Category Reaction Reaction Severity Criticality Documentation Date Start Date Code Code System Note Provider Name and Address Organization Details Recorded Time 1721 Substance with sulfonami de structure and antibacte rial mechanism of action (substanc e) medicatio n anaphylax is severe high 11/11/2022 68578 8003 SNOMED Shikha Ramírez brandon [facility] 4 12:15:31 1722 Product containin g penicilli n (product) medicatio n rash mild low 11/11/2022 85732 8001 SNOMED [facility] [place] 4 12:15:25 1723 oxycodone medicatio n other Not available Not available 11/11/2022 7804 RxNorm [facility]. Shikha Barryyudith [facility] [place] 4 12:15:14 1724 hydrocodo ne Not available other Not available Not available 11/11/2022 5489 RxNorm turns pt [facility]. Shikha [facility]rell [facility] [place] 4 12:15:08 1725 amiodaron e medicatio n hallucina tions moderate low 11/11/2022 703 RxNorm Shikhalaura Ramírez [facility], [facility]LD[facility]CD[facility] 4 12:14:31 17453 codeine medicatio n other Not available Not available 02/21/2023 2670 RxNorm turns pt [facility]. Shikha [facility]rell [facility] [place], [facility] 4 12:14:54 04533 sulfadiaz ine medicatio n Not available Not available Not available 02/21/2023 93732 RxNorm Comme nt: Recor ded 09/25 11:23 AM by Emily Fofana r, Offic e Visit ; Promo jacinta; Signi fican ce: *; Reaso n: Drug aller gy; ; Shikha Ram[facility]rez [facility] [place] 4 12:15:37 97325 penicilli n V potassium medicatio n Not available Not available Not available 02/21/202356243 5 RxNorm Comme nt: Recor ded 09/25 11:23 AM by Kelse travon Fofana r, Offic e Visit ; Promo jacinta; Signi fican ce: *; Reaso n: Drug aller gy; ; Shikha Ram[facility]rez [facility] [place] 12:15:16 Medications Name Sig Start Date Stop [...] Available Imitrex as needed 04/02 completed DM/sd; 19567; Recorded 07/22/20 8:54AM by Yaa Au (Authori chaitanya through Mago Mcgrath DO), Annotati on/Adden dum; Refill Quantity : 20; Tablet; Not Available Not Available Not Available Plavix daily 04/[address] SHRESTHA; 0; Recorded 09/26/19 11:23AM by Alla Amezcua, [...] Not Available Not Available No t Available Deepthi SHRESTHA 04/02 completed 0; Recorded 09/26/19 11:23AM by Alla Amezcua, Office Visit; Not Available Not Available Not Available Vitals Date Recorded Body height Body mass index (BMI) Body weight Oxygen saturation Oxygen saturation in Arterial blood by Pulse oximetry Heart rate Respiratory rate Systolic And Diastolic Provider Name and Address Organization Details Last Updated DateTime 5 152.4 cm 33.9 kg/m2 63168.5 8 g 95 % 95 % 67 /min 18 /min 128/88 mm[Hg] [facility] 5 12:28:37 Date Recorded Body height Oxygen saturation Oxygen saturation in Arterial blood by Pulse oximetry Heart rate Respiratory rate Body mass index (BMI) Body weight Systolic And Diastolic Provider Name and Address Organization Details Last Updated DateTime 5 152.4 cm 96 % 96 % 75 /min 18 /min 34 kg/m2 31660.0 7 g 122/76 mm[Hg] ALLA AMEZCUA [facility] 5 12:13:53 Date Recorded Body height Body mass index (BMI) Body weight Oxygen saturation Oxygen saturation in Arterial blood by Pulse oximetry Heart rate Respiratory rate Systolic And Diastolic Provider Name and Address Organization Details Last Updated DateTime 5 152.4 cm 33.5 kg/m2 80497.1 g 96 % 96 % 78 /min 18 /min 136/80 mm[Hg] [facility] 5 11:50:41 Date Recorded Body height Body mass index (BMI) Body weight Body temperature Heart rate Oxygen saturation Oxygen saturation in Arterial blood by Pulse oximetry Systolic And Diastolic Provider Name and Address Organization Details Last Updated DateTime 5 152.4 cm 33.4 kg/m2 83156.3 g 97.8 [degF] 84 /min 96 % 96 % 134/78 mm[Hg] Shireen Dash [facility] 5 14:52:38 Social History Question Answer Notes LastModified by Node[employer] Details LastModified Time Tobacco Smoking Status Former Smoker quit smoking in 1999. Steffen taylor [facility] 08/16/2024 10:59:57 What Was The Date Of Your Most Recent Tobacco Screening? 04/21/2025 [email or web address] Information not available 04/21/2025 Sex: Unknown Functional Status Question Answer Note LastModified by Node[employer] Details LastModified Time Do you use any illicit or recreational drugs? No Information not available 11/11/2022 Do you or have you ever used any other forms of tobacco or nicotine? No [email or web address] Information not available 11/11/2022 What is your level of alcohol consumption? None [email or web address] Information not available 11/11/2022 Mental Status None [...] high-dose, quadrivalent, PF 0 completed Toshia taylor [facility] 01/06/2024 10:26:11 COVID-19, mRNA, LNP-S, PF, 30 mcg/0.3 mL dose 1 completed Toshia taylor [facility] 01/06/2024 10:26:11 COVID-19, mRNA, LNP-S, bivalent, PF, 30 mcg/0.3 mL dose 2 completed Toshia taylor [facility] 01/06/2024 10:26:11 Influenza, split virus, quadrivalent, PF 3 completed [facility] [place] 05/04/2023 13:32:16 Influenza, split virus, trivalent, preservative 8 completed Not Available [facility] 02/21/2023 02:16:56 Pneumococcal conjugate PCV 13 8 completed Toshia taylor [facility] 01/06/2024 10:26:11 Tdap 3 completed Not Available [facility] 02/21/2023 02:16:56 Past Encounters Encounter ID Performer Location Encounter Start Date Encounter Closed Date Diagnosis/Indication Diagnosis SNOMED-CT Code Diagnosis ICD10 Code Diagnosis IMO Codes Diagnosis Note [id number] Mago Mcgrath DO [facility] ([facility]) [address] [place] [address] 11/11/2022 10:26:22 11/12/2022 14:55:26 Atrial fibrillation 10765890 I48.91 no change in meds. keep /fu with Dr. Weaver, EP. continue eliquis and metoprolol , diltiazem Adult [facility] examination 873516595 Z00.00 I counseled patient on diet, exercise, weight, and mental health. We discussed appropriat e cancer screenings . All questions were addressed. We will obtain wellness labs with phone followup. Congestive heart failure 91297286 I50.9 persumed with BNP 273, has echo scheduled. has eval with Dr. Weaver, also with Dr. Shrestha.faustino vital after echo and eval by Dr. Weaver. Obstructiv e sleep apnea syndrome 51982098 G47.33 continue nightly BiPAP Generalize d anxiety disorder 56440773 F41.1 stable. continue lexapro and prn xanax Essential hypertension 37158768 I10 continue dilitazem, metoprolol [place] sl eep apnea syndrome 75213896 G47.37 per roro Barraza. continue Bipap. Angina pectoris 82191130 0 I20.9 continue nitro, plavix [id number] Mago Mcgrath DO [facility] ([facility]) [address] [place] [address] 12/02/2022 10:44:39 12/02/2022 18:25:18 Atrial fibrillation 06274907 I48.91 no change in meds. keep /fu with Dr. Weaver, EP. continue eliquis and metoprolol , diltiazem Systolic murmur 85651505 R01.1 reviewedr ecent echo. continue with Dr. Weaver and Dr. Shrestha. Congestive heart failure 22968683 I50.9 persumed with BNP 273, has echo scheduled. has eval with Dr. Weaver, also with Dr. Shrestha.faustino vital after echo and eval by Dr. Weaver. Atrial sep moira aneurysm 07858209 I25.3 had an echo done on 11/21/22res ults show septal aneurysm 3x1.65cm. mildly enlarged since 2020.amy nue with Dr. Shrestha [id number] Mago Mcgrath DO [facility] ([facility]) [address] [place] [address] 12/29/2022 12:27:01 12/29/2022 20:15:31 Angina pectoris 767300810 I20.9 continue nitro, plavix per Dr. shrestha's recommenda tion. per pt, Dr. Quintero may consider stopping plavix. Systolic murmur 96888820 R01.1 reviewed recent echo. continue with Dr. Weaver and Dr. Shrestha. Congestive heart failure 38900545 I50.[address] Quintero. only use lasix for prn use. Atrial fibrillation 4943 6004 I48.91 recent fu with ROSA Avendano. No AFIB on event monitor. but due to septal aneurysm, will continue eliquis and metoprolol , diltiazem Atrial sep moira aneurysm 83884360 I25.3 had an echo done on 11/21/22res ults show septal aneurysm 3x1.65cm. mildly enlarged since 2020.amy nue with Dr. Shrestha [id number] Mago Mcgrath DO [facility] ([facility]) [address] [place] [address] 04/02/2023 09:35:32 04/10/2023 18:41:38 Coronary arteriosclerosis in [place] artery 3545317629 107 I25.10 Stable. Continue follow-up with cardiology in [facility] Angina pectoris 75782879 0 I20.9 continue nitro, plavix per Dr. shrestha's recommenda tion. per pt, Dr. Quintero may consider stopping plavix. Skin lesion 41297370 L98 .9 Inflamed, lateral thigh, changing. Patient to return for excision with pathology. stop plavix 3 days before, and the eliquis the night before upcoming skin procedure. Osteoarthritis 572081387 M19.90 Bilateral hands. Counseled on presumed Heberden's nodes. Atrial fibrillation 4943 6004 I48.91 recent fu with ROSA Avendano. No AFIB on event monitor. but due to septal aneurysm, will continue eliquis and metoprolol , diltiazem Congestive heart failure 57306665 I50.[address] Quintero. only use lasix for prn use. stable currently. [id number] Mago Mcgrath DO [facility] ([facility]) [address] [place] [address] [phone] 5 04/15/2023 15:54:58 04/15/2023 17:09:06 Skin lesion 65391662 L98.9 Inflamed, lateral thigh, changing.P atient desires excision today. Performed as above. Patient tolerated procedure well. Counseled patient on wound care and aftercare and expectatio ns. She is to restart her Eliquis this afternoon. Specimen was sent and we will provide phone follow-up in 1 to 2 weeks. No need to return for suture removal as the suture was subcuticul ar and observable [id number] Mago Mcgrath DO [facility] ([facility]) [address] [place] [address] [phone] 5 05/04/2023 12:19:55 05/04/2023 14:19:25 Active or passive immunization [id number] Z23 [id number] Mago Mcgrath DO [facility] ([facility]) [address] [place] [address] [phone] 5 07/09/2023 08:55:50 07/09/2023 17:15:37 Atrial fibrillation [id number] I48.[address] Weaver, EP. No AFIB on event monitor. but due to septal aneurysm, will continue eliquis and metoprolol , diltiazem Generalize d anxiety disorder 99514275 F41.1 stable. continue lexapro and prn xanax Congestive heart failure 79197585 I50.[address] Quintero. only use lasix for prn use. stable currently. EF was 55% on [employer] jun 2023 Prediabetes 331250344 R7 3.03 A1c 6.Jun. repeat labs in 3-4 mts with f/u. pt to work on low sugar diet and daily exercise. Muscle pain 36405580 M79 .10 pt to hold her rosuvastat in for 2 wks. if pain resolves, we need to look at alternativ es. counseled Osteopenia 531979838 M85 .80 .cx on calcium and vit D suppliment ation. will get vit D labs and DEXA. counseled [id number] Mago Mcgrath DO [facility] ([facility]) [address] [place] [address] [phone] 5 08/03/2023 16:13:08 08/03/2023 18:47:51 Pain of left shoulder joint 1231131933 3797672 M25.512 08/03/23- After detailed discussion on diagnosis and treatment options, pt expressed verbal desire to proceed today with procedure and expressed verbal understand ing of options, risks, procedure, and expectatio ns.pt requesting injection in left shoulder today. given as above. Pt tolerated the procedure well. Aftercare instructio ns with expectatio ns and precaution s were discussed. [id number] CRISTY PERALES PA-C [facility] ([facility]) [address] [place] [address] [phone] 5 08/07/2023 10:27:35 08/07/2023 15:34:22 Atrophic vaginitis 98846811 N95.2 barrier cream at the top like Aquaphoran d estrogen cream at introtus daily x 10 days then 2x/week. Vaginal discomfort 41175 1003 N89.9 [id number] Mago Mcgrath DO [facility] ([facility]) [address] [place] [address] [phone] 5 08/27/2023 09:18:05 08/27/2023 12:31:55 Atrial fibrillation 64121598 I48.[address] Weaver, EP/cardiol tutu, will continue eliquis and metoprolol , diltiazem Congestive heart failure 99099481 I50.[address] Quintero. only use lasix for prn use. stable currently. EF was 55% on [employer] jun 2023 Angina pectoris 38038052 0 I20.9 continue nitro, plavix, stable Generalize d anxiety disorder 38471478 F41.1 stable. continue lexapro and prn xanax Obstructiv e sleep apnea syndrome 25969767 G47.33 continue nightly BiPAP, stable and compliant. Prediabetes 959205787 R7 3.03 A1c 6.Jun. repeat labs in 3-4 mts with f/u. pt to work on low sugar diet and daily exercise. Moderate r ecurrent major depression 51776457 F33.1 stable. no need for meds at this time. Essential hypertension 58733894 I10 continue amlodipine , metoprolol Hyperlipidemia 52957495 E78.5 stable. continue rosuvastat in Fibromyalgia 940634414 M 79.7 stable. nsaids, exercise. Hypertensi ve heart disease with congestive heart failure 4472481 I11.0 Continue metoprolol , amlodipine , as needed furosemide . Continue care with cardiology . 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 Continue care with cardiology . [id number] Mago Mcgrath DO [facility] ([facility]) [address] [place] [address] 48409-115 5 09/18/2023 08:12:53 09/18/2023 08:56:51 Angina pectoris 299146932 I20.9 continue nitro, plavix, stable. Continue with Dr. Wagner, cardiology . Atrial fibrillation [address] Weaver, EP/cardiol ogtravon, will continue eliquis, plavix, and metoprolol , diltiazem, but will defer to him on need for both Plavix and Eliquis in light of no atrial fibrillati on on cardiac event monitor. Atrial sep moira aneurysm 09273162 I25.3 had an echo done on 11/21/22res ults show septal aneurysm 3x1.65cm. mildly enlarged since 2020.amy nue with cardiology . Has appointmen t in October. She will discuss need for both Plavix and Eliquis. Congestive heart failure 04780756 I50.[address] Quintero. only use lasix for prn use. stable currently. EF was 55% on [employer] jun 2023 Essential hypertension 46401775 I10 continue amlodipine , metoprolol [id number] Mago Mcgrath DO [facility] ([facility]) [address] [place] [address] [phone] 5 10/29/2023 08:21:25 10/30/2023 09:54:38 Hyperlipidemia 67952183 E78.5 stable. continue rosuvastat in [id number] Mago Mcgrath DO [facility] ([facility]) [address] [place] [address] [phone] 5 12/03/2023 09:18:11 12/03/2023 10:14:30 Atrial fibrillation 74722793 I48.[address] Weaver, EP/cardiol tutu, will continue eliquis, plavix, and metoprolol , diltiazem, but will defer to him on need for both Plavix and Eliquis in light of no atrial fibrillati on on cardiac event monitor. Essential hypertension 74624259 I10 stable, continue amlodipine and metoprolol . Generalize d anxiety disorder 34083231 F41.1 stable. continue lexapro and prn xanax Hyperlipidemia 55952207 E78.5 stable. continue rosuvastat in Prediabetes 100929202 R7 3.03 A1c 6.Jun. repeat labs in 3-4 mts with f/u. pt to work on low sugar diet and daily exercise. Adult [facility] th examination 649815326 Z00.00 Patient presented to office today for their Medicare Annual Wellness Visit. We reviewed recent labs and records from recent cardiology visit. Education was provided on healthy nutrition, including [...] reduce health risks and promote healthy living. Osteoarthr itis of joint of bilateral hands 8326112489 82407 M19.041 M19.042 counseled. tylenol. do not overuse. [id number] Mago Mcgrath DO [facility] ([facility]) [address] [place] [address] [phone] 5 12/23/2023 15:31:51 12/25/2023 10:24:39 Acquired trigger finger of right middle finger 4612934754 34603 M65.331 Counseled joint injection injection today. Patient tolerated injection. Patient will monitor site for signs of infection and report any adverse side effects. [id number] Mago Mcgrath DO [facility] ([facility]) [address] [place] [address] [phone] 5 01/06/2024 10:10:01 01/06/2024 10:44:00 Contact dermatitis 89537790 L25.9 Presumed Poison Jacqui, Betamethas one injection, counseled. [id number] RIMA SERRANO [facility] ([facility]) [address] [place] [address] [phone] 5 01/29/2024 11:47:01 01/29/2024 12:49:04 Infection of tooth 053346444 K04.7 Discussed use of antibiotic for full course. May take tylenol/mo sofía for discomfort .Rinse mouth with mouthwash or saltwater rinses after eating/dri nking to keep the mouth clean.Call dentist today to schedule f/u appt.F/u sooner if you develop difficulty swallowing , fever, increased swelling. [id number] Mago Mcgrath DO [facility] ([facility]) [address] [place] [address] 03/08/2024 09:37:49 03/08/2024 12:57:49 Fatigue 01460691 R53.83 03/08/24- lab today. Prediabetes 554762939 R7 3.03 A1c 6.Jun. pt to work on low sugar diet and daily exercise. Obstructiv e sleep apnea syndrome 79106822 G47.33 03/08/24- New CPAP mask not fitting well, pt to go to [facility] [place] for fitting, eval. Atrial fibrillation 4943 6004 I48.91 03/08/24- off Plavix, continue Eliquis, Asa 81mg daily. [id number] Mago Mcgrath DO [facility] ([facility]) [address] [place] [address] 5 04/05/2024 15:49:07 04/05/2024 17:02:56 Atrial fibrillation 34295527 I48.91 Continue Eliquis, stopped Asa 04/04/24 on her own d/t black stools. No longer on Plavix. Essential hypertension 46546477 I10 stable, continue amlodipine and metoprolol . Generalize d anxiety disorder 10619283 F41.1 stable. continue lexapro and prn xanax Hyperlipidemia 90342823 E78.5 stable. continue rosuvastat in Prediabetes 900546841 R7 3.03 04/05/24- A1c improved to 5.4 on 03/08/24, counseled on diet, exercise. Pt going to try a no sugar diet, working on weight loss. Melena 4049280 K92.1 Repeat CBC today, counseled stay off Asa. Vitamin B1 2 deficiency (non anemic) 93999041 E53.8 04/05/24- reviewed lab, counseled take Bcomplex in the am, continue Folic acid. Eczema 25815125 L30.9 [id number] Mago Mcgrath DO [facility] ([facility]) [address] [place] [address] 86429-835 5 05/11/2024 15:34:17 05/13/2024 07:39:27 Skin lesion 99407323 L98.9 RUE, 3 lesions, to return for Cryotherap y. Essential hypertension 51855541 I10 stable, continue amlodipine and metoprolol . Acute sinusitis 04104942 J01.90 Acute maxi llary sinusitis 39291359 J01.00 Zpack, Prednisone , low dose. [id number] aMgo Mcgrath DO [facility] ([facility]) [address] [place] [address] 45186-614 5 05/24/2024 09:56:18 05/24/2024 11:04:50 Essential hypertension 64863433 I10 stable, continue amlodipine and metoprolol . Acute maxi llary sinusitis 51589867 J01.00 Zpack, Prednisone , low dose. Inflamed s eborrheic keratosis 406764208 L82.0 We had a detailed discussion on diagnosis and treatment options including referral to specialist . The pt expressed verbal desire to proceed today with procedure cryotherap y and expressed verbal understand ing of options, risks, procedure, and expectatio ns.Cryothe rapy was performed on 4 lesions by me as above.Pt tolerated the cryotherap y procedure well. Aftercare instructio ns with expectatio ns and precaution s were discussed. [id number] Mago Mcgrath DO [facility]) [address] [place] [address] 47016-691 5 05/31/2024 10:33:46 06/01/2024 16:24:21 Acute maxillary sinusitis 80214741 J01.00 05/31/24- Counseled lungs sound ok, this appears to be sinus related, will start Levaquin, works well for sinus issues. Counseled on diagnosis, treatment options including medication s and possible side effects. Continue Flonase and kimberlyn pot. [id number] Mago Mcgrath DO [facility] ([facility]) [address] [place] [address] 12122-457 5 06/15/2024 16:43:52 07/17/2024 08:09:23 Pain of left knee joint 8091131862 73903 M25.026 [id number] Mago Mcgrath DO [facility] ([facility]) [address] [place] [address] 06634-876 5 06/21/2024 10:20:44 06/21/2024 12:45:59 Pain of left knee joint 0107500285 69728 M25.562 pain mildly worse since injection of Kenalog last week. concern for reactive inflammati on. pt to start 600mg IBU TiD and 1000mg tylenol BiD. Return to office with no improvemen t or any problems. Go to ER with severe worsening or severe problems. [id number] Mago Mcgrath DO [facility] ([facility]) [address] [place] [address] 79861-972 5 06/28/2024 13:43:45 06/30/2024 10:35:20 Pain of left knee joint 7818354601 00495 M25.562 Effusion o f joint of left knee 8807331691 57613 M25.010 [id number] RIMA SERRANO [facility] ([facility]) [address] [place] [address] 86562-909 5 07/10/2024 14:10:18 07/10/2024 14:49:57 Increased blood pressure 93553460 R03.0 Discussed to take 1 extra amlodipine today when arriving at home. This evening check your bp and if the top number is >130 and/or the bottom number is >85, then take your regularly scheduled amlodipine .This week check you bp at noon and at bedtime. If the pressure is elevated at noon, then take 1 extra amlodipine . Keep a record and turn into your PCP after 1 week. [id number] Mago Mcgrath DO [facility] ([facility]) [address] [place] [address] [phone] 5 07/18/2024 14:26:01 07/18/2024 16:26:12 Essential hypertension 96700454 I10 elevated lately. possibly due to pain. , continue amlodipine and metoprolol . can take an extra amlodipine . pt to start exercising again. Generalize d anxiety disorder 03065073 F41.1 stable. continue lexapro and prn xanax Pain of le ft knee joint 6236427624 43918 M25.562 somewhat improved from recent flair. still with advanced/s evere DJD. continue with plan for eval by ortho at [facility] for TkA. pt wanting to use a doctor that uses the robot. [id number] Mago Mcgrath DO [facility] ([facility]) [address] [place] [address] 08/16/2024 10:25:51 08/29/2024 07:53:25 Moderate recurrent major depression 81626166 F33.1 stable. no need for meds at this time. Congestive heart failure 99617880 I50.9 I11.0 Continue metoprolol , amlodipine , as needed furosemide . Continue care with cardiology .EF was 55% on [employer] jun 2023 Atrial fibrillation 4943 6004 I48.91 Continue Eliquis, stopped Asa 04/04/24 on her own d/t black stools. No longer on Plavix. Hyperlipidemia 82766733 E78.5 stable. continue rosuvastat in Generalize d anxiety disorder 95829735 F41.1 stable. continue lexapro and prn xanax Essential hypertension 89620848 I10 Continue Amlodipine and Metoprolol . Obstructiv e sleep apnea syndrome 59393044 G47.33 03/08/24- New CPAP mask not fitting well, pt to go to [facility] [place] for fitting, eval. Obesity 159588106 E66.9 Counseled on diet and exercise. Chest pain 12948410 R07. 9 08/16/24: EKG today. To keep Cardio appt with Dr. Quintero in 2 days, on 08/18/24. Counseled update Dr. Quintero on her knee situation, looking at possible replacemen t, will need clearance prior to surgery. Counseled see ER immediatel y if CP becomes severe, or won't go away. Pain of le ft knee joint 8820829473 91720 M25.562 08/16/24: Still with advanced/s evere DJD. Improving with knee brace per Dr. Stuart. Advised pt ok to see [facility] for opinion, to reschedule her f/u appt with Dr. Stuart 1-2 weeks later. Atrial sep moira aneurysm 35227561 I25.3 had an echo done on 4/28/23res ults show septal aneurysm 3x1.65cm. mildly enlarged since 2020.amy nue with cardiology . Abdominal pain 01369509 R10.9 08/16/24: Abd US today to r/o Aneurysm. Counseled see ER immediatel y if abd pain becomes severe, won't resolve. Muscle pain 78215468 M79 .10 improved. [id number] Mago Mcgrath DO [facility] ([facility]) [address] [place] [address] 45472-647 5 08/31/2024 12:34:32 09/01/2024 14:30:04 [id number] Mago Mcgrath DO [facility] ([facility]) [address] [place] [address] 79583-718 5 09/21/2024 17:10:35 10/05/2024 10:34:05 Pain of toe of right foot 8453438667 38910 M79.674 I have independen tly reviewed and interprete d XR results, d/w patient. Dr. Marcelino Mcgrath: no acute bony injury, chronic arthritic changes. Counseled expect slow improvemen t, this may be tender for a few days. Congestive heart failure 60747245 I50.9 I11.0 Continue metoprolol , amlodipine , as needed furosemide . Continue care with cardiology .Reviewed and discussed recent Echo and Stress test:Echo 08/26/[address] Quintero [facility]: EF 66%, normal diastolic function, contrast study showed no shunting, with mild pulm htn, no evidence of PFO that was present on JOSE MARTIN on 05/15/22.C ardiac stress test 08/26/24 per [facility]: no evidence of infarction / ischemia.E F was 55% on [employer] jun 2023 Atrial fibrillation 4943 6004 I48.91 Continue Eliquis, Cardio resumed Plavix. [id number] RIMA LITTLE [facility] ([facility]) [address] [place] [address] 98465-286 5 10/19/2024 12:42:07 10/19/2024 15:50:12 Acute maxillary sinusitis 31529766 J01.00 May use otc meds like zyrtec and fluticason e nasal spray as needed for symptoms. Return to clinic with any new or worsening symptoms. [id number] Mago Mcgrath DO [facility] ([facility]) [address] [place] [address] [phone] 5 11/15/2024 15:10:54 11/15/2024 18:06:13 Osteoarthritis 132597068 M19.90 11/15/24: Counseled OA in right 3rd finger causing discomfort . Apply Voltaren gel, she says she has some at home. Chronic sinusitis 245413 00 J32.8 52753 Counseled low dose Prednisone for 10 days. [id number] Mago Mcgrath DO [facility] ([facility]) [address] [place] [address] [phone] 5 12/15/2024 12:11:38 01/12/2025 14:02:41 Obstructive sleep apnea syndrome 20750740 G47.33 12/15/24: pt not tolerating CPAP. .I counsled on sleep hygeine, proper mask usage, how to use machine. we discussed adjustment s and problem solving with equipment. 03/08/24- New CPAP mask not fitting well, pt to go to [facility] [place] for fitting, eval. Prediabetes 095313956 R7 3.03 12/15/24: A1c deteriorat ed to 5.8, counseled on diet, increasing activity.- A1c improved to 5.4 on 03/08/24, counseled on diet, exercise. Pt going to try a no sugar diet, working on weight loss. Essential hypertension 88276657 I10 Continue Amlodipine and Metoprolol . Osteoarthritis 594362916 M19.90 101713888 12/15/24: no improvemen t with Voltaren gel. Pt will try wearing mitts at night.11/15: Counseled OA in right 3rd finger causing discomfort . Apply Voltaren gel, she says she has some at home. [id number] Mago Mcgrath DO [facility] ([facility]) [address] [place] [address] 68842-364 5 12/14/2024 13:52:51 12/15/2024 10:35:45 Essential hypertension 53561349 I10 Continue Amlodipine and Metoprolol . Prediabetes 888092048 R7 3.03 04/05/24- A1c improved to 5.4 on 03/08/24, counseled on diet, exercise. Pt going to try a no sugar diet, working on weight loss. [id number] Mago Mcgrath DO [facility] ([facility]) [address] [place] [address] [phone] 5 01/11/2025 16:21:14 01/17/2025 17:11:01 Obstructive sleep apnea syndrome 83531927 G47.33 01/11/25: Stable, continue CPAP.- New CPAP mask not fitting well, pt to go to [facility] [place] for fitting, eval. Essential hypertension 45364150 I10 01/11/25: Counseled alternate Metoprolol 50mg/100mg every other day for 2 weeks, continue to monitor BP and HR, if doing well, may then take 50mg daily. RTC 3 weeks. Eczema 46539981 L30.9 329912 Triamcinol one, counseled. [id number] Mago Mcgrath DO [facility] ([facility]) [address] [place] [address] [phone] 5 02/02/2025 11:51:43 02/03/2025 10:03:12 Essential hypertension 10568618 I10 02/02/25: Continue Metoprolol at 100mg.01/11: Counseled alternate Metoprolol 50mg/100mg every other day for 2 weeks, continue to monitor BP and HR, if doing well, may then take 50mg daily. RTC 3 weeks. Muscle pain 70024530 M79 .18 [id number] 02/02/25: deteriorat ed, generalize d muscle pain and wkns. Lab today. [id number] Mago Mcgrath DO [facility] ([facility]) [address] [place] [address] 11907-621 5 02/16/2025 11:31:53 02/26/2025 17:26:18 Muscle pain 99888031 M79.18 [id number] 02/16/25: no improvemen t with stopping statin, she will resume. Will treat with Prednisone today.02/02: deteriorat ed, generalize d muscle pain and wkns. Lab today. Hyperlipidemia 95487823 E78.5 stable. continue rosuvastat in [id number] Mago Mcgrath DO [facility] ([facility]) [address] [place] [address] [phone] 5 04/13/2025 08:09:53 04/14/2025 11:28:40 Essential hypertension 73497102 I10 02/02/25: Continue Metoprolol at 100mg.01/11: Counseled alternate Metoprolol 50mg/100mg every other day for 2 weeks, continue to monitor BP and HR, if doing well, may then take 50mg daily. RTC 3 weeks. Prediabetes 732768322 R7 3.03 [id number] 12/15/24: A1c deteriorat ed to 5.8, counseled on diet, increasing activity.- A1c improved to 5.4 on 03/08/24, counseled on diet, exercise. Pt going to try a no sugar diet, working on weight loss. [id number] Mago Mcgrath DO [facility] ([facility]) [address] [place] [address] [phone] 5 04/18/2025 10:43:27 04/18/2025 12:06:47 Essential hypertension 06679242 I10 04/18/25: Fatigue with Metoprolol , BP [...] 50mg daily. RTC 3 weeks. Atrial fibrillation 4943 6004 I48.91 Continue Eliquis, Cardio resumed Plavix. Pain of left wrist 05531 82232 19048 M25.532 [id number] 04/18/25: counseled continue wrist brace at night, wear a little looser, we want it snug, but not tight. Offered Cortisone injection, declined d/t prior rxn to Cortisone injection. History an d physical examination, annual for health maintenance 12357566 Z00.00 [id number] Patient presented to office today for their [...] reduce health risks and promote healthy living. [id number] RIMA SERRANO [facility] ([facility]) [address] [place] [address] 04/21/2025 14:23:28 04/21/2025 15:33:00 Chest pain 63418174 R07.89 14081 No active symptoms currently. EKG shows no signs of acute ischemia. Pt will keep appt as scheduled with her PCP this Thursday. If the chest/head discomfort returns she will f/u in ER Health Concerns Section Related Observation LastModified by Organization Detai ls LastModified Time None Recorded Concern Status LastModified by Organization Details LastModified Time None Recorded Advance Directives Directive None Recorded Payers Insurance Date Sequence Insurance Name Policy Number Policy Moreno Covered Member ID Moreno Member ID Guarantor Name 04/21/2025 1 [employer] (MEDICARE REPLACEMENT/ ADVANTAGE - PPO) Christy Oquendo [id number] Christy Oquendo Notes Date Note Type Note Provider Name and Address Organization Details Recorded Time 02/02/2025 text/html ROS as noted in the HPI Pt presents for recheck on HTN She tried to decrease her Metoprolol to 50 mg daily but her bp went up to 150/90 and she went back to 100mg daily She c/o all over generalized pain, feels like all her muscles hurt and she has no strength.She finds she is having trouble walking up stairs.She reports, in the last year I feel like I'm just fading away . Mago Mcgrath, [address] [place] [address], [phone], ABBI Finnegan [facility], [place] 02/20/2025 07:55:23 02/16/2025 text/html ROS as noted in the HPI Pt presents 2 week f/u last visit we d/c statin d/t muscle and aches and pain. since d/c medication pt states she has not noticed much, if any, improvement with muscle aches She does have a constant hip pain also, worse with bending over. She spends a lot of time in the garden bent over and in constant pain.She is afraid to exercise to help the pain, since the pain worsens when she is busy being active. She did take a fall this am, outside, has some abrasions on her left knee, discomfort to the right wrist, no specific injury. Mago Mcgrath, DO [address] [place] [address], [phone], [facility] 02/17/2025 14:47:29 04/18/2025 text/html ROS as noted in the HPI Pt presents for wellness visit and f/u on chronic issues She recently saw Cardiology for her 6 month check and c/o fatigue, Metoprolol decreased to 50mg BID, which helped her fatigue, however BP went up so Cardiology advised increase back to Metoprolol Succinate 100mg daily, they may consider a different beta troy. Pt concerned it could be her Vit D or CoQ10, so she stopped those. Wearing a wrist brace at night, for left wrist pain, concern she may be wearing it too tight. Chronic sinus drainage, feels allergy meds make her icky .She has been using a new kimberlyn pot the last 3 days, feels she is getting good at it. Mago Mcgrath, DO [address] [place] [address], [phone], [facility] 04/20/2025 18:58:53 04/21/2025 text/html ROS as noted in the [...] Was recently changed to carvedolol. ROLA BEE, MANAGEMENT ENGINEER [address] [place], [address], [facility] - [facility], [place] 04/21/2025 15:31:47 OBGyn Episode No OBEpisode recorded.
--- OUTSIDE RECORDS SUMMARY | 2025-04-22 00:48 | XMS_ITS | Continuity of Care Document ---
Author Organization ABBI Kain Magallanes [facility], [place], [facility] ([facility]) Address [address] [place] [address] Care Team Providers Care Starch Treating Assistant Name Role Phone MAGO MCGRATH Primary Care Provider Unavailabl e Assessment Encounter Date Assessment Date Assessment LastModified by Organization Details LastModified Time 04/18/2025 04/18/2025 Document scribed by Steffen Cade Business Office Manager. I was present during interview and exam. [...] Procedures None recorded. Surgeries None recorded. Imaging None recorded. Medication Orders carvedilo l 6.25 mg tablet 2024 025 [email or web address] [id number], [address] [facility], [place], [address], 04/18/2025 12:15:24 Patient TargetsNo targets recorded. Patient InstructionsNo instructions recorded. Reason for Referral None Reported. Results Created Date Observation Date Name Description Value Unit Range Abnormal Flag Note LastModifiedBy Organization Detail LastModifiedTime 04/21/2004/21/2025 elect cristine campos am No observ ation record ed. [facility] ([facility]) [address] [place], [address], 04/21/2025 16:04:46 Result Notes None recorded. Problems [...] ; acuity set as *; Not Available [facility] 3 03:16:28 Palpitat ions [id number] Completed 202002/28/2021 PALPITAT IONS - Status is Inactive ; Recorded 02/29/20 12:27PM by Cristy Perales PA-C, Annotati on/Adden dum; Promoted ; acuity set as *; Not Available [facility] 3 03:16:28 Sleep apnea [id number] Completed 202002/28/2021 Sleep Apnea - Status is Inactive ; 02/29/20 11:10AM by Cristy Perales PA-C, Annotati on/Adden dum; Promoted ; acuity set as *; Not Available [facility] 3 03:16:28 Migraine NOS Completed 202002/28/2021 Migraine s - Status is Inactive ; 02/29/20 12:27PM by Cristy Perales PA-C, Annotati on/Adden dum; Promoted ; acuity set as *; Not Available [facility] 3 03:16:36 Hypothyr oidism [id number] Completed 202002/28/2021 Hypothyr oidism - Status is Inactive ; 02/29/20 12:27PM by Cristy Perales PA-C, Annotati on/Adden dum; Promoted ; acuity set as *; Not Available [facility] 3 03:16:38 Breast neoplasm screenin g status [id number] Completed 202002/28/2021 BREAST CANCER SCREENIN G - Status is Inactive ; Recorded 02/29/20 12:27PM by Cristy Perales PA-C, Annotati on/Adden dum; Promoted ; acuity set as *; Not Available [facility] 3 03:16:38 Dietary manageme nt surveill ance Completed 202002/28/2021 DIETARY SURVEILL ANCE AND COUNSELI NG - Status is Inactive ; Recorded 02/29/20 12:27PM by Cristy Perales PA-C, Annotati on/Adden dum; Promoted ; acuity set as *; Not Available [facility] 3 03:16:39 Adult health examinat ion Completed 202007/26/2021 ROUTINE GENERAL MEDICAL EXAMINAT ION AT A HEALTH CARE FACILITY - Status is Resolved ; Resolved Date: 07/26/20; Recorded 07/26/20 2:16PM by Perla Stern LPN, Birgitati on/Adden dum; Promoted ; acuity set as *; Not Available [facility] 3 03:16:37 Obstruct gerald sleep apnea syndrome 08148897 Active 2022 Steffen taylor [facility], [facility] 4 10:31:06 Fibromya lgia 838802969 Active 2022 Fibromya lgia - Status is Inactive ; 02/29/20 11:10AM by Cristy Perales PA-C, Birgitati on/Adden dum; Promoted ; acuity set as *; ; Start Date : 02/29/20 FIBRO MYALGIA; Recorded 09/26/19 11:23AM by Alla Amezcua, Office Visit; Promoted ; acuity set as *; Not Available [facility] 3 03:16:31 Migraine 94868469 Active 2022 MIGRAINE ; Recorded 09/26/19 11:23AM by Alla Amezcua, Office Visit; Promoted ; acuity set as *; MIGRAIN E HEADACHE - Status is Inactive ; Impressi on: Pt. requeste d through [facility] .; Recorded 02/29/20 11:47AM by Cristy Perales PA-C, Annotati on/Adden dum; Promoted ; acuity set as *; ; Start Date : 02/29/20 Not Available [facility] 3 03:16:33 Congesti ve heart failure 93238694 Active 2022 Mago Mcgrath, DO [address] [place] [address], [phone] , [facility] 5 17:05:16 Adult health examinat ion Active 2022 Mago Mcgrath, [address], [address] , [facility] 3 08:01:05 Atrial fibrilla tion 25721878 Active 2022 Mago Mcgarth, [address], [address] , [facility] 5 17:05:29 Angina pectoris 240378153 Active 2022 Mago Mcgrath [address], [address] , [facility] 3 08:05:46 Atrial septal aneurysm 01626493 Active 2022 Mago Mcgrath [address], [address] , [facility] 3 11:59:24 Systolic murmur 82295266 Active 2022 Mago Mcgrath [address], [address] , [facility] 3 11:59:27 Skin lesion 22390199 Active 2022 Mago Mcgrath [address] [address] , [facility] 3 10:39:38 Osteoart hritis 260174643 Active 2022 Steffen taylor, [facility] 5 13:13:15 Prediabe jack 702306552 Active 2022 Magomarlene Mcgrath[address] , [facility] 3 09:24:41 Generali zed anxiety disorder 48344584 Active 2022 Magomarlene Mcgrath[address] , [facility] 3 09:27:27 Muscle pain 09185616 Active 2022 [place] [address] , [facility] 3 09:34:05 Osteopen ia 753415523 Active 2022 Magomarlene Mcgrath[address] , [facility] 3 17:01:54 Pain of left shoulder joint 51165997019 507889 Active 2023 Magomarlene Mcgrath [address] , [facility] 4 17:46:41 Moderate recurren t major depressi on 51155762 Active 2023 Magomarlene Mcgrath [address] , [facility] 4 10:38:52 Hyperlip idemia 47440384 Active 2023 Mago Mcgrath [address], [address] , [facility] 4 10:39:34 Mary mooney 40208991 Active 2023 Mago Mcgrath [address], [address] , [facility] 5 17:05:31 Secondar y hyperald osteroni sm 62964877 Active 2023 Mago Mcgrath [address], [address] , [facility] 4 10:42:30 Acute maxillar y sinusiti s 54988771 Active 2023 Mago Mcgrath [address], [address] , [facility] 4 18:59:46 Inflamed seborrhe ic keratosi s 821239708 Active 2023 Mago Mcgrath [address], [address] , [facility] 4 19:01:01 Pain of left knee joint 29967178334 4107 Active 2023 Mago Mcgrath [address], [address] , [facility] 4 15:38:14 History and physical examinat ion, annual for [facility] Active 2024 Mago Mcgrath [address], [address] , [facility] 5 18:58:06 Problem Notes None recorded. Procedures Surgical History Date Name Laterality Status Provider Name and Address Organization Details Recorded Time 4 Joint Inj Kenalog- Shoulder, Hip, Knee completed Mago Mcgrath DO [address] [place] [address], [address], [facility] 06/29/2024 18:20:50 4 Joint Inj Kenalog- Shoulder, Hip, Knee completed Mago Mcgrath DO [address] [place] [address], [address], [facility] 07/16/2024 17:09:56 4 jr cryo warts completed Mago Mcgrath [address], [address], [facility] 05/24/2024 10:39:59 4 Joint Inj Kenalog- Shoulder, Hip, Knee completed Steffen [facility] 12/23/2023 16:11:42 4 Joint Inj Kenalog- Shoulder, Hip, Knee completed Steffen [facility] 08/03/2023 16:46:43 3 Excision and closure completed Mago Mcgrath [address], [address], [facility] 04/15/2023 16:41:44 procedure on shoulder completed Francisca Higgins [facility] 07/10/2024 14:34:10 Knee Surgery completed [facility] 07/10/2024 14:34:40 Stent completed Francisca Higgins [facility] 07/10/2024 14:35:28 Tubal Ligation completed Franciscatravon Higgins [facility] 07/10/2024 14:35:44 Imaging Results None recorded. Procedure Notes None recorded. Medical Equipment None Reported. Allergies Allergen ID Allergen Name Allergen Category Reaction Reaction Severity Criticality Documentation Date Start Date Code Code System Note Provider Name and Address Organization Details Recorded Time 1721 Substance with sulfonami de structure and antibacte rial mechanism of action (substanc e) medicatio n anaphylax is severe high 11/11/2022 79338 8003 [facility]ED [facility] 12:15:31 1722 Product containin g penicilli n (product) medicatio n rash mild low 11/11/2022 28383 8001 SNOMED [facility] 12:15:25 1723 oxycodone medicatio n other Not available Not available 11/11/2022 7804 RxNorm turns pt brigh t red. [facility] 12:15:14 1724 hydrocodo ne Not available other Not available Not available 11/11/2022 5489 RxNorm turns pt brigh t red. [facility] 12:15:08 1725 amiodaron e medicatio n hallucina tions moderate low 11/11/2022 703 RxNorm [facility] 12:14:31 13601 codeine medicatio n other Not available Not available 02/21/2023 2670 RxNorm turns pt brigh t red. Shikha Ramírez [facility], [facility]LD[facility] 12:14:54 79462 sulfadiaz ine medicatio n Not available Not available Not available 02/21/2023 22614 RxNorm Comme nt: Recor ded 09/25 11:23 AM by Anthony middleton, Offic e Visit ; Promo jacinta; Signi fican ce: *; Reaso n: Drug aller gy; ; [facility] 4 12:15:37 60037 penicilli n V potassium medicatio n Not available Not available Not available 02/21/2023 5 RxNorm Comme nt: Recor ded 09/25 11:23 AM by Anthony middleton, Offic e Visit ; Guru workman; Thanh shin ce: *; Reaso n: Drug aller gy; ; [facility] 4 12:15:16 Medications Name Sig Start Date Stop [...] 04/02 completed 0; Recorded 09/26/19 11:23AM by lAla Amezcua, Office Visit; Not Available Not Available Not Available folic acid 04/02 completed 0; Recorded 09/26/19 11:23AM by Alla Amezcua, Office Visit; Not Available Not Available Not Available Imitrex as needed 04/02 completed DM/sd; 35959; Recorded 07/22/20 8:54AM by Yaa Au (Cj tavares through Mago Mcgrath DO), Dutch on/Cody dum; Refill Quantity : 20; Tablet; Not [...] Not Available Not Available No t Available Eliquis DR LAU 04/02 completed 0; Recorded 09/26/19 11:23AM by Alla Amezcua, Office Visit; Not Available Not Available Not Available Vitals Date Recorded Body height Body mass index (BMI) Body weight Oxygen saturation Oxygen saturation in Arterial blood by Pulse oximetry Heart rate Respiratory rate Systolic And Diastolic Provider Name and Address Organization Details Last Updated DateTime 152.4 cm 33.5 kg/m2 31413.1 g 96 % 96 % 78 /min 18 /min 136/80 mm[Hg] Toshia Bashir [facility] 11:50:41 Social History Question Answer Notes LastModified by Organizat ion Details LastModified Time Tobacco Smoking Status Former Smoker quit smoking in 1999. Steffen taylor [facility] 08/16/2024 10:59:57 What Was The Date Of Your Most Recent Tobacco Screening? 04/21/2025 [email or web address] Information not available 04/21/2025 Sex: Unknown Functional Status Question Answer Note LastModified by Organizat ion Details LastModified Time Do you use any illicit or recreational drugs? No [email or web address] Information not available 11/11/2022 Do you or have you ever used any other forms of tobacco or nicotine? No [email or web address] Information not available 11/11/2022 What is your level of alcohol consumption? None [email or web address] Information not available 11/11/2022 Mental Status None [...] high-dose, quadrivalent, PF 0 completed Toshia taylor [facility] 01/06/2024 10:26:11 COVID-19, mRNA, LNP-S, PF, 30 mcg/0.3 mL dose 1 completed Toshia taylor [facility] 01/06/2024 10:26:11 COVID-19, mRNA, LNP-S, bivalent, PF, 30 mcg/0.3 mL dose 2 completed Toshia taylor [facility] 01/06/2024 10:26:11 Influenza, split virus, quadrivalent, PF 3 completed YAA YUEL brandon [facility], [facility] 05/04/2023 13:32:16 Influenza, split virus, trivalent, preservative 8 completed Not Available [facility] 02/21/2023 02:16:56 Pneumococcal conjugate PCV 13 8 completed Toshia taylor [facility], [facility] 01/06/2024 10:26:11 Tdap 3 completed Not Available [facility] 02/21/2023 02:16:56 Past Encounters Encounter ID Performer Location Encounter Start Date Encounter Closed Date Diagnosis/Indication Diagnosis SNOMED-CT Code Diagnosis ICD10 Code Diagnosis IMO Codes Diagnosis Note [id number] Mago Mcgrath DO [facility] ([facility]) [address] [place] [address] 04/13/2025 08:09:53 04/14/2025 11:28:40 Essential hypertension 29518517 I10 02/02/25: Continue Metoprolol at 100mg.01/11: Counseled alternate Metoprolol 50mg/100mg every other day for 2 weeks, continue to monitor BP and HR, if doing well, may then take 50mg daily. RTC 3 weeks. Prediabetes 540843524 R7 3.03 [id number] 12/15/24: A1c deteriorat ed to 5.8, counseled on diet, increasing activity.- A1c improved to 5.4 on 03/08/24, counseled on diet, exercise. Pt going to try a no sugar diet, working on weight loss. [id number] Mago Mcgrath DO [facility] ([facility]) [address] [place] [phone] 04/18/2025 10:43:27 04/18/2025 12:06:47 Essential hypertension 74589993 I10 04/18/25: Fatigue with Metoprolol , BP [...] Cardio resumed Plavix. Pain of left wrist 55251 66585 30537 M25.532 [id number] 04/18/25: counseled continue wrist brace at night, wear a little looser, we want it snug, but not tight. Offered Cortisone injection, declined d/t prior rxn to Cortisone injection. History an d physical examination, annual for health maintenance 88478767 Z00.00 [id number] Patient presented to office today for their [...] reduce health risks and promote healthy living. Health Concerns Section Related Observation LastModified by Organization Detai ls LastModified Time None Recorded Concern Status LastModified by Organization Details LastModified Time None Recorded Payers Encounter Date Sequence Insurance Name Policy Number Policy Moreno Covered Member ID Moreno Member ID Guarantor Name 04/18/2025 1 [employer] (MEDICARE REPLACEMENT/ ADVANTAGE - PPO) Christy Oquendo [id number] Christy Oquendo Notes Date Note Type Note Provider Name and Address Organization Details Recorded Time 04/18/2025 text/html ROS as noted in the [...] getting good at it. Mago Mcgrath, DO [address] [place] [address], [phone], [facility], [place] 04/20/2025 18:58:53 OBGyn Episode No OBEpisode recorded.
--- NOTE | 2025-04-22 00:55 | XRR_ITS ---
PROCEDURE INFORMATION: Exam: XR Chest Exam date and time: 04/22/2025 1:00 AM Age: 74 years old Clinical indication: Chest pressure; Prior surgery; Surgery date: 6+ months; Surgery type: Coronary stent. Node ablation; C/O chest pain; Additional info: Cp TECHNIQUE: Imaging protocol: Radiologic exam of the chest. Views: 1 view. COMPARISON: CR XR chest 1V portable [id number] 08/13/2023 4:18 PM FINDINGS: Lungs: Unremarkable. No consolidation. Pleural spaces: Unremarkable. No pleural effusion. No pneumothorax. Heart/Mediastinum: Unremarkable. No cardiomegaly. Bones/joints: Unremarkable. XR/XR chest 1V portable [id number] IMPRESSION: No acute findings.
[2025-04-22 01:13] LABS: Hematocrit 39.3 % (36-47); Hemoglobin 13.20 g/dL (11.27-16.99); Mean Corpuscular HGB Conc 33.6 g/dL (30-55); Mean Corpuscular Hemoglobin 29.9 pg (27-33); Mean Corpuscular Volume 89.1 fl (85-98); Nucleated Red Blood Cells % 0 %; Platelet Count 217 10^3/cmm (157-399); Red Blood Count 4.41 10^6/uL (3.85-5.65); White Blood Count 5.92 10^3/uL (3.29-11.43)
[2025-04-22 01:27] VITALS: BP 146/89; PULSE 74; RESP 16; O2SAT 94
[2025-04-22 01:32] LABS: Troponin(5th) Baseline < 6 ng/L (0-10)
[2025-04-22 01:40] LABS: Alanine Aminotransferase 19 U/L (0-33); Albumin Level 4.3 g/dL (3.5-5.2); Alkaline Phosphatase 112 U/L (35-105); Anion Gap 15.1 (5-19); Aspartate Amino Transferase 22 U/L (0-32); Blood Urea Nitrogen 16 mg/dL (8-23); Calcium 9.9 mg/dL (8.5-10.5); Carbon Dioxide 24 mmol/L (22-29); Chloride 100 mmol/L (98-107); Creatinine Clr Calc Pharmacy 56.5913; Globulin 3.3 g/dL (1.3-4.6); Glucose 107 mg/dL (65-115); Lipase 52 U/L (13-60); NT Pro B Type Natriuretic Pept 128 pg/mL (0-125); Osmolality Calculated 282 mOsm/kg (285-295); Potassium 4.1 mmol/L (3.5-5.1); Sodium 135 mmol/L (136-145); Total Protein 7.6 g/dL (6.6-8.7)
[2025-04-22 02:07] VITALS: BP 130/84; PULSE 77; RESP 21; O2SAT 96
--- NOTE | 2025-04-22 02:21 | W.ED.CHESTPA ---
HPI - Chest Pain General: Chief Complaint: Chest Pain Stated Complaint: Chest Pain Time Seen by Provider: 04/22/25 00:53 History of Present Illness: Patient is a 74-year-old female with a history of coronary artery disease s/p stent placement 7 years ago and atrial fibrillation s/p ablation 2 years ago who presents to the ED with chest pain. Patient reports that she has had recent medication changes due to fatigue on metoprolol 100mg. Her power regulator, Dr. Quintero, and local physician, Dr. Gonzales, have made several medication adjustments over the past few months. Most recently, on Thursday, Dr. Gonzales switched her from metoprolol to carvedilol 6.25mg. On Thursday, her blood pressure increased, and she was instructed to take two tablets if BP remained elevated. On morning, her BP was 150/90, so she took two carvedilol tablets but subsequently developed chest pain and head pain described as a 'squeezing' sensation, which resolved within 2-3 hours. She had an EKG done at a walk-in clinic this afternoon which was reportedly normal. Patient awoke at midnight with recurrent chest pain and shoulder blade discomfort, prompting her ED visit. She describes the pain as migratory, sometimes located centrally, sometimes to one side, and radiating across her chest and to her shoulder blades. Patient reports mild shortness of breath which she attributes to anxiety. She also notes feeling extremely tired for several months and experiencing some palpitations this evening, particularly when lying on her left side. She declined nitroglycerin paste due to history of severe migraines with its use. Related Data Home Medications ?Medication ?Instructions ?Recorded ?Confirmed pantoprazole 40 mg tablet,delayed 40 mg PO DAILY 09/09/19 09/19/24 release cholecalciferol (vitamin D3) 50 50 mcg PO DAILY 07/04/21 09/19/24 mcg (2,000 unit) capsule magnesium oxide 400 mg PO DAILY 12/31/21 09/19/24 alprazolam 0.25 mg tablet 0.25 mg PO TID PRN Anxiety 02/06/22 09/19/24 sumatriptan succinate 25 mg tablet 25 mg PO Q2H PRN Headache 03/28/22 09/19/24 folic acid 800 mcg tablet 0.8 mg PO DAILY 11/04/22 09/19/24 conjugated estrogens 0.625 mg/gram 1 applic vaginal DIRECTED 08/13/23 09/19/24 vaginal cream (Premarin) metoprolol succinate 100 mg 100 mg PO DAILY 08/13/23 09/19/24 tablet,extended release 24 hr Previous Rx's ?Medication ?Instructions ?Recorded nitroglycerin 0.4 mg sublingual 0.4 mg sublingual Q5M PRN chest 12/31/21 tablet pain 30 days #30 tabs clopidogrel 75 mg tablet 75 mg PO DAILY #90 tabs 07/22/22 rosuvastatin 5 mg tablet 5 mg PO DAILY #90 tabs 10/15/22 apixaban 5 mg tablet (Eliquis) 5 mg PO BID #60 tabs 01/23/23 amlodipine 5 mg tablet 5 mg PO DAILY #30 tabs 08/13/23 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, 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 #1 ea 08/03/24 Allergies Allergy/AdvReac Type Severity Reaction Status Date / Time Sulfa (Sulfonamide Allergy Severe shock Verified 09/19/24 13:36 Antibiotics) amiodarone Allergy Intermediate ADV-Weaknes Verified 09/19/24 13:36 s Penicillins Allergy Intermediate rash Verified 09/19/24 13:36 hydrocodone Allergy Mild Turned red Verified 09/19/24 13:36 oxycodone Allergy Mild Turns Red Verified 09/19/24 13:36 doxycycline Allergy high bp, Verified 09/19/24 13:36 shaking, irregular hr metronidazole Allergy high bp, Verified 09/19/24 13:36 shaking, irregular hr PFS ED PFSH: Medical History Onychodystrophy Ventricular arrhythmia History of high blood pressure Sleep apnea Migraines Fibromyalgia Hyperlipidemia ASHD (arteriosclerotic heart disease) Surgical History Presence of stent in LAD coronary artery H/O tubal ligation H/O: knee surgery H/O shoulder surgery Family History Mother CAD (coronary artery disease) Diabetes Stroke Brother CAD (coronary artery disease) Dementia Father Stroke Other Hyperlipidemia Hypertension Psychiatric illness Denies family history of Clotting disorder Chronic kidney disease (CKD) Suicide Anesthesia complication Bleeding disorder Lung disease Cancer Social History Smoking and tobacco/nicotine status: former use of tobacco/nicotine Alcohol intake: never Substance/Drug Use: never Physical Exam Const: COMMON NORMALS: no acute distress GENERAL APPEARANCE: cooperative; not ill appearing and not frail appearing HENMT: COMMON NORMALS: normocephalic, atraumatic and Normal external nose present HEAD & SCALP: normocephalic and atraumatic FACE & SINUS: normal facial exam and face symmetric NOSE: Normal external nose present Eye: COMMON NORMALS: Equal, round and reactive pupils present and EOMs intact bilaterally PUPIL: Yes Equal, round and reactive pupils present Neck/C-Spine: GENERAL: Yes trachea midline Chest: CHEST: Yes Symmetrical chest wall rise Resp: COMMON NORMALS: normal respiratory effort, No retractions, No use of accessory muscles and clear to auscultation bilaterally AUSCULTATION: clear to auscultation bilaterally Cardio: COMMON NORMALS: regular rate and regular rhythm RATE: regular rate RHYTHM: regular rhythm GI: COMMON NORMALS: Normal to inspection, nondistended, normoactive bowel sounds present Extremity: COMMON NORMALS: no pedal edema Neuro: VASILE COMA SCALE: document GCS findings Vasile coma scale eye opening: Spontaneous Vasile coma scale verbal response: Orientated Vasile coma scale motor response: [place]bey commands [place] coma scale total score: 15 SENSORY EXAM: Yes extremities (intact) Psych: COMMON NORMALS: speech normal SPEECH: Yes normal speech Skin: COMMON NORMALS: no rashes or lesions noted GENERAL SKIN EXAM: no rashes or lesions noted Course Vital Signs: Vital signs: Vital Signs Temperature 98 F 04/22/25 00:44 Pulse Rate 77 04/22/25 02:07 Respiratory Rate 21 H 04/22/25 02:07 Blood Pressure 130/84 04/22/25 02:07 Pulse Oximetry 96 04/22/25 02:07 Oxygen Delivery Me thod Room Air 04/22/25 00:44 MDM - Chest Pain Medical Decision Making EKG shows a normal sinus rhythm with a heart rate of 70, normal axis, normal intervals, no acute ST-T wave changes. Chest x-ray is nonacute. CBC and BMP are normal. Troponin is nondetectable at less than 6. Lipase is normal. She declined pain medication. Her blood pressure improved to 130/84 on its own. No arrhythmias on the monitor. She is stable for discharge. She knows to return for return of or worsening symptoms. Lab Data 04/22/25 00:58 09 00:58 Radiology Impressions Chest X-Ray 04/22/25 00:55 IMPRESSION: No acute findings. Laboratory Results WBC 5.92 10^3/uL (3.29-11.43) 04/22/25 00:58 RBC 4.41 10^6/uL (3.85-5.65) 04/22/25 00:58 Hgb 13.20 g/dL (11.27-16.99) 04/22/25 00:58 Hct 39.3 % (36-47) 04/22/25 00:58 MCV 89.1 fl (85-98) 04/22/25 00:58 MCH 29.9 pg (27-33) 04/22/25 00:58 MCHC 33.6 g/dL (30-55) 04/22/25 00:58 RDW 13.2 % (12.1-15.1) 04/22/25 00:58 Plt Count 217 10^3/cmm (157-399) 04/22/25 00:58 MPV 10.2 fL (7.4-10.4) 04/22/25 00:58 Neut % (Auto) 46.2 % 04/22/25 00:58 Lymph % (Auto) 35.0 % 04/22/25 00:58 Gordon % (Auto) 16.6 % 04/22/25 00:58 Eos % (Auto) 1.4 % 04/22/25 00:58 Baso % (Auto) 0.5 % 04/22/25 00:58 Neut # (Auto) 2.74 10^3/uL (1.8-7.7) 04/22/25 00:58 Lymph # (Auto) 2.1 10^3/uL (0.8-4.8) 04/22/25 00:58 Gordon # (Auto) 1.0 10^3/uL (0.2-0.9) H 04/22/25 00:58 Eos # (Auto) 0.1 10^3/uL (0.0-0.8) 04/22/25 00:58 Baso # (Auto) 0.0 10^3/uL (0.0-0.1) 04/22/25 00:58 Nucleated RBC % (auto) 0 % 04/22/25 00:58 Nucleated RBCs # 0.0 /100WBC 04/22/25 00:58 Sodium 135 mmol/L (136-145) L 04/22/25 00:58 Potassium 4.1 mmol/L (3.5-5.1) 04/22/25 00:58 Chloride 100 mmol/L (98-107) 04/22/25 00:58 Carbon Dioxide 24 mmol/L (22-29) 04/22/25 00:58 Anion Gap 15.1 (5-19) 04/22/25 00:58 BUN 16 mg/dL (8-23) 04/22/25 00:58 Creatinine 0.7 mg/dL (0.5-0.9) 04/22/25 00:58 GFR Calculation Not Reportable 04/22/25 00:58 Glucose 107 mg/dL (65-115) 04/22/25 00:58 Calculated Osmolality 282 mOsm/kg (285-295) L 04/22/25 00:58 Calcium 9.9 mg/dL (8.5-10.5) 04/22/25 00:58 Total Bilirubin 0.3 mg/dL (0.15-1.2) 04/22/25 00:58 AST 22 U/L (0-32) 04/22/25 00:58 ALT 19 U/L (0-33) 04/22/25 00:58 Alkaline Phosphatase 112 U/L (35-105) H 04/22/25 00:58 Troponin T Baseline < 6 ng/L (0-10) 04/22/25 00:58 NT-Pro-B Natriuret Pep 128 pg/mL (0-125) H 04/22/25 00:58 Total Protein 7.6 g/dL (6.6-8.7) 04/22/25 00:58 Albumin 4.3 g/dL (3.5-5.2) 04/22/25 00:58 Globulin 3.3 g/dL (1.3-4.6) 04/22/25 00:58 Lipase 52 U/L (13-60) 04/22/25 00:58 All radiology interpretation(s) finalized by discharge Discharge Plan Discharge Patient Disposition: Home Clinical Impression: Chest pain, History of high blood pressure Condition: Stable Prescriptions: No Action magnesium oxide 400 mg magnesium tablet 400 mg PO DAILY nitroglycerin 0.4 mg tablet, sublingual 0.4 mg sublingual Q5M PRN (Reason: chest pain) 30 Days Qty: 30 3RF Rx Instructions: until response; do not exceed 3 doses per episode pantoprazole 40 mg tablet,delayed release (DR/EC) 40 mg PO DAILY cholecalciferol (vitamin D3) 50 mcg (2,000 unit) capsule 50 mcg PO DAILY folic acid 800 mcg tablet 0.8 mg PO DAILY (DME) 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, left See Rx Instructions .ROUTE .MEDSUPPLY Qty: 1 0RF Rx Instructions: As directed alprazolam 0.25 mg tablet 0.25 mg PO TID PRN (Reason: Anxiety) clopidogrel 75 mg tablet 75 mg PO DAILY Qty: 90 3RF rosuvastatin 5 mg tablet 5 mg PO DAILY Qty: 90 3RF Eliquis 5 mg tablet 5 mg PO BID Qty: 60 5RF sumatriptan succinate 25 mg tablet 25 mg PO Q2H PRN (Reason: Headache) Premarin 0.625 mg/gram cream 1 applic vaginal DIRECTED metoprolol succinate 100 mg tablet extended release 24 hr 100 mg PO DAILY amlodipine 5 mg tablet 5 mg PO DAILY Qty: 30 0RF Discharge Orders: Discharge ED (Routine); Ordered 04/22/25 Ordered By: Rakan Osman Referrals: Von Quintero MD [Primary Care Provider, Cardiology] - 4-7 days Patient Instructions: Chest Pain (ED), Opioid Safety, Pain Management, Patient Portal & Katie Instructions Activity Restrictions/Additional Instructions: Monitor your blood pressure twice daily. Report numbers to your doctor. Call Thursday for a follow-up appointment this coming week. Return for worsening pain, shortness of breath, fever, leg swelling, other concerning symptoms. Print Language: Maori Coding Level of Care Code ED Hypoid Gear Tester for Cee Hardy
[2025-04-22 02:39] VITALS: BP 162/96; PULSE 71; O2SAT 94
== END 2025-04-22 02:40 | disposition home or self-care (01) ==
PROVIDERS: Emergency Provider Emergency Medicine; PCP Internal Medicine Cardiovascular Disease
DX: R07.9 Chest pain, unspecified (principal); I10 Essential (primary) hypertension; Z79.01 Long term (current) use of anticoagulants; Z79.02 Long term (current) use of antithrombotics/antiplatelets; Z87.891 Personal history of nicotine dependence; E78.5 Hyperlipidemia, unspecified
CPT/HCPCS: 71045; 80053; 83690; 83880; 84484; 85025; 93005; 99285

== ENCOUNTER 2025-04-26 08:41 | Outpatient (RCR) | payer SELFPAY | END 2025-05-26 23:59 | disposition home or self-care (01) | LOC: CR 08:41 | PROVIDERS: PCP Internal Medicine Cardiovascular Disease; Referring Provider Internal Medicine Cardiovascular Disease; Visit Provider Internal Medicine Cardiovascular Disease | DX: Z95.5 Presence of coronary angioplasty implant and graft (principal) ==

== ENCOUNTER 2025-05-02 09:02 | Outpatient (CLI) | payer MEDICARE, SELFPAY ==
--- NOTE | 2025-05-02 09:09 | MM_ITS ---
WS: [id number] BILATERAL 3D TOMOSYNTHESIS DIGITAL SCREENING MAMMOGRAPHY WITH CAD CLINICAL INFORMATION: SCREENING HISTORY: Screening mammogram. No current complaints. COMPARISON: 2023 TECHNIQUE: Bilateral CC and MLO views. FINDINGS: Scattered fibroglandular densities bilaterally. No suspicious focal mass, asymmetry, calcifications, or architectural distortion. No evidence of malignancy. MM/MM scr BI tomosynthesis [id number] IMPRESSION: DENSITY: There are scattered areas of fibroglandular density. BI-RADS: 1 - Negative. FOLLOW UP: 1 Year Follow-up Recommend return to annual screening mammography.
== END 2025-05-02 09:03 | disposition home or self-care (01) ==
LOC: RAD 09:04
PROVIDERS: PCP Internal Medicine Cardiovascular Disease; Visit Provider Electrodiagnostic Medicine
DX: Z12.31 Encounter for screening mammogram for malignant neoplasm of breast (principal); R92.323 Mammographic fibroglandular density, bilateral breasts
CPT/HCPCS: 77063; 77067

== ENCOUNTER 2025-05-27 09:23 | Outpatient (RCR) | payer SELFPAY | END 2025-06-25 23:59 | disposition home or self-care (01) | LOC: CR 09:23 | PROVIDERS: PCP Internal Medicine Cardiovascular Disease; Referring Provider Internal Medicine Cardiovascular Disease; Visit Provider Internal Medicine Cardiovascular Disease | DX: Z95.5 Presence of coronary angioplasty implant and graft (principal) ==

== ENCOUNTER 2025-06-26 08:58 | Outpatient (RCR) | payer SELFPAY | END 2025-07-26 23:59 | disposition home or self-care (01) | LOC: CR 08:58 | PROVIDERS: PCP Internal Medicine Cardiovascular Disease; Referring Provider Internal Medicine Cardiovascular Disease; Visit Provider Internal Medicine Cardiovascular Disease | DX: Z95.5 Presence of coronary angioplasty implant and graft (principal) ==

== ENCOUNTER → 2025-07-06 07:02 | Outpatient (BNVA) | payer MEDICARE, SELFPAY | PROVIDERS: PCP Internal Medicine Cardiovascular Disease; Referring Provider Electrodiagnostic Medicine; Visit Provider Specialist | DX: R20.0 Anesthesia of skin (principal); G56.01 Carpal tunnel syndrome, right upper limb; M25.511 Pain in right shoulder; M79.641 Pain in right hand; M79.642 Pain in left hand; M25.531 Pain in right wrist | CPT/HCPCS: 95911 ==